=== PATIENT | female | born 1940 | race Caucasian/White ===

== ENCOUNTER 2016-08-27 12:37 | Emergency (ER) | payer MEDICARE, OTHER ==
[2016-08-27 12:48] VITALS: BP 160/77; O2SAT 99
--- NOTE | 2016-08-27 13:01 | ERPHSYRPT ---
- History of Present Illness Time Seen by Provider: 08/27/16 12:41 Source: patient, family Exam Limitations: no limitations Patient Subjective Stated Complaint: lt earache Triage Nursing Assessment: states has had a lt earache for 3 days. denies injury or drainage. pain radiates to lt post head. no new glasses Physician History: left ear pain for few days; recurrent; no fever; general aches; no exposures Timing/Duration: gradual onset, intermittent Severity: moderate ENT Location: ear (L) Prearrival Treatment: no prearrival treatment Modifying Factors: Improves With: nothing Associated Symptoms: ear pain (L), No cough, No fever, No chills, No change in hearing, No dizziness, No ear drainage, No facial pain/swelling, No headache, No hearing loss, No jaw pain Allergies/Adverse Reactions: cephalexin [From Keflex] Allergy (Verified 08/27/16 12:47) levofloxacin [From Levaquin] Allergy (Verified 08/27/16 12:47) morphine Allergy (Verified 08/27/16 12:47) nitrofurantoin [From Macrobid] Allergy (Verified 08/27/16 12:53) Penicillins Allergy (Verified 08/27/16 12:47) Home Medications: Lisinopril 10 mg [Zestril 10 MG] 10 mg PO DAILY 03/08/16 [History] Metoprolol Tartrate 25 mg [Lopressor 25MG Tab] 25 mg PO BID 03/08/16 [ History] Ranitidine HCl [Zantac] 300 mg PO HS 03/08/16 [History] Alprazolam 0.25 mg [xanAX 0.25 MG] 0.25 mg PO BID PRN 04/23/16 [History] Hx Tetanus, Diphtheria Vaccination/Date Given: Yes Hx Influenza Vaccination/Date Given: No Hx Pneumococcal Vaccination/Date Given: No Immunizations Up to Date: Yes - Review of Systems Constitutional: No Symptoms Eyes: No Symptoms Ears, Nose, & Throat: Ear Pain (left), No Ear Discharge, No Hearing Changes, No Tinnitus, No Nose Discharge, No Epistaxis, No Mouth Pain, No Throat Pain Respiratory: No Cough, No Cyanosis, No Dyspnea Cardiac: No Chest Pain, No Edema, No Syncope Abdominal/Gastrointestinal: Abdominal Pain (mild chronic intrermittant), No Nausea, No Vomiting, No Diarrhea Genitourinary Symptoms: No Symptoms Musculoskeletal: Arthralgias, Back Pain (chronic), No Injury Skin: No Symptoms Neurological: No Symptoms Psychological: No Symptoms Endocrine: No Symptoms Hematologic/Lymphatic: No Symptoms Immunological/Allergic: No Symptoms - Past Medical History Pertinent Past Medical History: Yes Neurological History: Migraines ENT History: Cataracts Cardiac History: Hypertension Respiratory History: No Pertinent History Endocrine Medical History: No Pertinent History Musculoskeletal History: No Pertinent History GI Medical History: GERD History: No Pertinent History Psycho-Social History: Anxiety Female Reproductive Disorders: No Pertinent History - Past Surgical History Past Surgical History: Yes Neuro Surgical History: No Pertinent History Cardiac: No Pertinent History Respiratory: No Pertinent History Gastrointestinal: Appendectomy, Bowel Surgery, Hernia Repair Genitourinary: No Pertinent History Musculoskeletal: No Pertinent History Female Surgical History: Hysterectomy - Social History Smoking Status: Never smoker Exposure to second hand smoke: No Alcohol Use: None Drug Use: none Patient Lives Alone: No Significant Family History: no pertinent family hx - Female History Hx Now: No - Nursing Vital Signs Nursing Vital Signs: Initial Vital Signs Temperature 97.7 F Temperature Source Oral Pulse Rate 61 Respiratory Rate 18 Blood Pressure [Right Arm] 160/77 Pain Intensity 5 - Physical Exam General Appearance: mild distress, alert, thin Eye Exam: bilateral eye: normal inspection, PERRL, EOMI Ear Exam: bilateral ear: auricle normal, canal normal, TM normal Nasal Exam: normal inspection, No dried blood, No sinus tenderness Throat Exam: normal, pharynx normal, moist mucus membranes, No dental tenderness , No excessive drooling, No mandibular swelling Neck Exam: normal inspection, non-tender, supple, full range of motion, trachea midline Cardiovascular/Respiratory Exam: chest non-tender, normal breath sounds, regular rate/rhythm, heart sounds normal, no JVD, no M/R/G, no respiratory distress Abdominal Exam: non-tender, soft, no organomegaly Neurologic Exam: alert, oriented x 3, cooperative, shelver II-XII nml as tested, normal mood/affect, nml cerebellar function, nml station & gait Skin Exam: normal color, warm, dry, No rash SpO2 Interpretation: normal SpO2: 99 Oxygen Delivery: Room Air - Course Nursing assessment & vital signs reviewed: Yes - Progress Progress Note: 08/27/16 13:00 discussed findings and treatment plan; instructions given Counseled pt/family regarding: diagnosis, need for follow-up - Departure Time of Disposition: 13:00 Departure Disposition: Home Clinical Impression: Left ear pain Condition: Stable Critical Care Time: No Additional Instructions: follow up DDS tylenol prn Follow-up with family doctor as directed. Call for appointment. Return if any problems. If you smoke please stop. Call or follow up with your family doctor for assistance if you need it to stop. Please wear your seatbelt when driving. Have a nice day. Thank you for allowing us to participate in your care today. :o) Dr Nick Frausto
[2016-08-27 13:05] VITALS: PULSE 60
== END 2016-08-27 13:05 | disposition home or self-care (01) ==
LOC: ED 12:37
DX: H92.02 Otalgia, left ear (principal); I10 Essential (primary) hypertension; Z79.899 Other long term (current) drug therapy
CPT/HCPCS: 99281; 99282

== ENCOUNTER 2016-10-24 21:53 | Emergency (ER) | payer MEDICARE, OTHER ==
[2016-10-24 22:08] VITALS: O2SAT 96
--- NOTE | 2016-10-24 22:23 | ERPHSYRPT ---
- History of Present Illness Time Seen by Provider: 10/24/16 22:11 Source: patient, family (DAUGHTER) Exam Limitations: no limitations Patient Subjective Stated Complaint: on antibiotics (nitrofurantoin) for a UTI but began to taste salt so stopped taking it - states that she has now RLQ pain and flank pain and frequency of urination now since today - states that when she began to have shoulder pain, also when she started the antibiotics Triage Nursing Assessment: ambulatory to treatment area - steady gait - moves all extremities with equal strength. alert/oriented - anxious affect. skin pwd - no rash/injury. resps easy - non-labored Physician History: TODAY PT HAS HAD INCREASED URINARY FREQUENCY, LOWER MID ABDOMINAL PAIN AND BILATERAL FLANK PAIN. PT ALSO C/O INTERMITTENT LEFT EARACHES FOR YEARS. PT DENIES FEVER, VOMITING, DIARRHEA, CHEST PAIN, SHORTNESS OF AIR. Allergies/Adverse Reactions: cephalexin [From Keflex] Allergy (Verified 10/24/16 22:02) levofloxacin [From Levaquin] Allergy (Verified 10/24/16 22:02) morphine Allergy (Verified 10/24/16 22:02) nitrofurantoin [From Macrobid] Allergy (Verified 10/24/16 22:02) Penicillins Allergy (Verified 10/24/16 22:02) Home Medications: Lisinopril 10 mg [Zestril 10 MG] 10 mg PO DAILY 03/08/16 [History] Metoprolol Tartrate 25 mg [Lopressor 25MG Tab] 25 mg PO BID 03/08/16 [ History] Ranitidine HCl [Zantac] 300 mg PO HS 03/08/16 [History] Alprazolam 0.25 mg [xanAX 0.25 MG] 0.25 mg PO BID PRN 04/23/16 [History] Hx Tetanus, Diphtheria Vaccination/Date Given: Yes Hx Influenza Vaccination/Date Given: No Hx Pneumococcal Vaccination/Date Given: No Immunizations Up to Date: Yes - Review of Systems Constitutional: No Fever Abdominal/Gastrointestinal: Abdominal Pain (LOWER MID ABDOMINAL PAIN AND BILATERAL FLANK PAIN TODAY.), No Vomiting Genitourinary Symptoms: Frequency Endocrine: No Excessive Sweating All Other Systems: Reviewed and Negative - Past Medical History Pertinent Past Medical History: Yes Neurological History: Migraines ENT History: Cataracts Cardiac History: Hypertension Respiratory History: No Pertinent History Endocrine Medical History: No Pertinent History Musculoskeletal History: No Pertinent History GI Medical History: GERD History: No Pertinent History Psycho-Social History: Anxiety Female Reproductive Disorders: No Pertinent History - Past Surgical History Past Surgical History: Yes Neuro Surgical History: No Pertinent History Cardiac: No Pertinent History Respiratory: No Pertinent History Gastrointestinal: Appendectomy, Bowel Surgery, Hernia Repair Genitourinary: No Pertinent History Musculoskeletal: No Pertinent History Female Surgical History: Hysterectomy - Social History Smoking Status: Never smoker Exposure to second hand smoke: No Alcohol Use: None Drug Use: none Patient Lives Alone: No Significant Family History: no pertinent family hx - Female History Hx Last Menstrual Period: n/a Hx Now: No - Nursing Vital Signs Nursing Vital Signs: Initial Vital Signs Temperature 98.1 F Temperature Source Oral Pulse Rate 62 Respiratory Rate 16 Blood Pressure [] 179/72 Pain Intensity 6 - Physical Exam General Appearance: alert Eye Exam: PERRL/EOMI Ears, Nose, Throat Exam: TMs normal, pharynx normal, moist mucous membranes Neck Exam: normal inspection Respiratory Exam: lungs clear Cardiovascular Exam: normal heart sounds Gastrointestinal/Abdomen Exam: soft, normal bowel sounds, No tenderness 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) Neurologic Exam: alert, cooperative Skin Exam: warm, dry SpO2 Interpretation: normal SpO2: 96 Oxygen Delivery: Room Air - Course Nursing assessment & vital signs reviewed: Yes - CT Exams Abdomen/Pelvis CT Interpretation: Tele-radiologist Report (NO ACUTE PROCESS) Ordered Tests: Active Orders 24 hr Category Date Time Status ABDOMEN AND PELVIS W/0 CONTRAS [CT] Stat Exams 10/24/16 22:39 Taken AMYLASE Stat Lab 10/24/16 22:55 Completed CBC W DIFF Stat Lab 10/24/16 22:55 Completed CMP Stat Lab 10/24/16 22:55 Completed LIPASE Stat Lab 10/24/16 22:55 Completed UA W/ MICROSCOPIC Stat Lab 10/24/16 22:25 Completed Lab/Rad Data: Laboratory Result Diagrams 10/24/16 22:55 10/24/16 22:55 Laboratory Results 10/24/16 10/24/16 10/24/16 Range/Units 22:55 22:55 22:25 WBC 6.7 (4.0-10.5) K/mm3 RBC 4.25 (4.1-5.4) M/mm3 Hgb 12.4 (12.0-16.0) gm/dl Hct 37.6 (35-47) % MCV 88.5 (78-100) fl MCH 29.2 (26-32) pg MCHC 33.0 (32-36) g/dl RDW 13.7 (11.5-14.0) % Plt Count 213 (150-450) K/mm3 MPV 11.2 H (6-9.5) fl Gran % 45.8 (36.0-66.0) % Lymphocytes % 38.1 (24.0-44.0) % Monocytes % 13.7 H (0.0-12.0) % Eosinophils % 2.1 (0.00-5.0) % Basophils % 0.3 (0.0-0.4) % Basophils # 0.02 (0-0.4) Sodium 131 L (136-145) mEq/L Potassium 4.5 (3.5-5.1) mEq/L Chloride 97 L (98-107) mEq/L Carbon Dioxide 28.8 (21-32) mEq/L Anion Gap 9.9 (5-15) MEQ/L BUN 13 (9-20) mg/dL Creatinine 0.92 (0.55-1.30) mg/dl Estimated GFR > 60 ML/MIN Glucose 109 (70-110) MG/DL Calcium 9.7 (8.5-10.1) mg/dL Total Bilirubin 0.5 (0.2-1.0) mg/dL AST 18 (15-37) U/L ALT 23 (12-78) U/L Alkaline Phosphatase 79 (46-116) U/L Serum Total Protein 6.6 (6.4-8.2) gm/dL Albumin 3.6 (3.4-5.0) g/dL Amylase 88 (25-115) U/L Lipase 242 (73-393) U/L Ur Collection Type CLEAN CATCH Urine Color LT.YELLOW (YELLOW) Urine Appearance CLEAR (CLEAR) Urine pH 6.5 (5-6) Ur Specific [place] <=1.005 (1.005-1.025) Urine Protein NEGATIVE (Negative) Urine Glucose (UA) NEGATIVE (NEGATIVE) mg/dL Urine Ketones NEGATIVE (NEGATIVE) Urine Nitrite NEGATIVE (NEGATIVE) Urine Bilirubin NEGATIVE (NEGATIVE) Urine Urobilinogen 0.2 (0-1) mg/dL Urine WBC (Auto) TRACE (NEGATIVE) Urine RBC (Auto) NEGATIVE (0-5) Jh/ul Urine Microscopic WBC 0-2 (0-5) /HPF Ur Epithelial Cells FEW (FEW) /HPF Urine Bacteria FEW (NEGATIVE) /HPF Specimen Received 10/24/16:2225 - Departure Time of Disposition: 23:47 Departure Disposition: Home Clinical Impression: ABDOMINAL PAIN Condition: Fair Critical Care Time: No Referrals: ELAINE NICOLE MD [Primary Care Provider] - Instructions: Abdominal Pain-Adult Additional Instructions: FOLLOW UP WITH PRIVATE DOCTOR TOMORROW.
[2016-10-24 22:31] LABS: COMPLETE URINE MICROSCOPIC? YES; Collection Type CLEAN CATCH; Ph 6.5 (5-6)
[2016-10-24 22:33] LABS: Bacteria FEW /HPF (NEGATIVE); Epithelial Cells FEW /HPF (FEW); WBC 0-2 /HPF (0-5)
[2016-10-24 23:15] VITALS: BP 179/72; PULSE 62
[2016-10-24 23:19] LABS: BASOPHIL % 0.3 % (0.0-0.4); Eosinophil % 2.1 % (0.00-5.0); Granulocytes % 45.8 % (36.0-66.0); Lymphocytes % 38.1 % (24.0-44.0); Mean Cell Volume 88.5 fl (78-100); Mean Corpuscular Hemoglobin 29.2 pg (26-32); Mean Platelet Volume 11.2 fl (6-9.5); Monocytes % 13.7 % (0.0-12.0); Platelet Count 213 K/mm3 (150-450); Red Blood Count 4.25 M/mm3 (4.1-5.4); Red Cell Distribution Width 13.7 % (11.5-14.0); White Blood Count 6.7 K/mm3 (4.0-10.5)
[2016-10-24 23:23] LABS: ALBUMIN 3.6 g/dL (3.4-5.0); ALKALINE PHOSPHATASE 79 U/L (46-116); ANION GAP 9.9 MEQ/L (5-15); BILIRUBIN,TOTAL 0.5 mg/dL (0.2-1.0); BLOOD UREA NITROGEN 13 mg/dL (9-20); CHLORIDE 97 mEq/L (98-107); Carbon Dioxide 28.8 mEq/L (21-32); Glucose 109 MG/DL (70-110); LIPASE 242 U/L (73-393); Potassium 4.5 mEq/L (3.5-5.1); SGOT/AST 18 U/L (15-37); SGPT/ALT 23 U/L (12-78); SODIUM 131 mEq/L (136-145); Total Protein 6.6 gm/dL (6.4-8.2)
--- NOTE | 2016-10-25 08:00 | XRAY ---
Indication: Bilateral flank pain. Urinary frequency and dysuria. UTI. Multiple contiguous axial images obtained through the abdomen and pelvis without contrast as ordered. Comparison: February 07, 2016. Lung bases remain hyperinflated with minimal fibrosis/scarring and right middle lobe noncalcified granuloma. Heart is not enlarged. Stable small hiatal hernia. Noncontrasted stomach and bowel loops appear nonobstructed. Again partial right colon resection with intact anastomosis and minimal sigmoid diverticulosis without diverticulitis. Previous reported hysterectomy and appendectomy. No free fluid/air. Stable scattered calcified splenic granulomas. Remaining liver, gallbladder, pancreas, spleen, adrenal glands, kidneys, ureters, and bladder appear unremarkable for noncontrast exam. There remains mild calcifications of the aortoiliac vessels without AAA. Osseous structures intact again with mild degenerative changes throughout the spine and both hips. Impression: 1. Stable small hiatal hernia and sigmoid diverticulosis. 2. Again intact colonic anastomosis without obstruction. 3. No new or acute intra-abdominal/pelvic abnormalities on this noncontrast exam. Comment: Preliminary interpretation was made by [facility]. No discrepancy. CTDI 11.72
== END 2016-10-25 00:19 | disposition home or self-care (01) ==
LOC: ED 21:53
DX: R10.30 Lower abdominal pain, unspecified (principal); R61 Generalized hyperhidrosis
CPT/HCPCS: 36415; 74176; 80053; 81000; 82150; 83690; 85025; 99283; 99284

== ENCOUNTER 2017-07-15 06:44 | Day surgery (SDC) | payer MEDICARE, OTHER ==
[2017-07-15] MEDS ORDERED: DEMEROL 50 MG IV ONE ×2 (06:45)
[2017-07-15] MEDS ORDERED: VERSED 5 MG/5 ML IV ONE (06:45)
[2017-07-15] MEDS ORDERED: Zofran 4 MG/2 ML VIAL IV ONE (06:45)
[2017-07-15] MEDS ORDERED: Sodium Chloride 0.9% 1000 ML 1,000 ML IV SCH (07:00)
--- NOTE | 2017-07-15 08:45 | HP ---
DATE OF SURGERY: 07/15/2017 ADMISSION DIAGNOSIS: Upper abdominal discomfort, gastroesophageal reflux disease. ANTICIPATED PROCEDURE: The patient requiring colonoscopy for follow up colon resection. HISTORY OF PRESENT ILLNESS: PAST MEDICAL HISTORY: ALLERGIES: NONE. MEDICATIONS: Lisinopril, metoprolol. PAST SURGICAL HISTORY: Previous colon resection. SOCIAL HISTORY: Negative. FAMILY HISTORY: Negative. PHYSICAL EXAMINATION: VITAL SIGNS: Normal. CHEST: Clear. COR: Regular. ABDOMEN: No palpable organomegaly or mass. IMPRESSION: Follow up of colon resection and evaluation of gastroesophageal reflux disease, abdominal pain. PLAN: EGD and colonoscopy.
[2017-07-15] MEDS ORDERED: Lactated Ringers 1,000 ML IV ONE (09:39)
[2017-07-15 11:07] VITALS: BP 106/60; PULSE 75; O2SAT 94
--- NOTE | 2017-07-15 12:19 | OP ---
SURGERY DATE/TIME: 07/15/201707 PREOPERATIVE DIAGNOSIS: The patient had abdominal pain right flank. She also had some symptoms of reflux, dysphagia, epigastric pain. She had a previous colon resection but no recent endoscopic examination. POSTOPERATIVE DIAGNOSIS: The patient had abdominal pain right flank. She also had some symptoms of reflux, dysphagia, epigastric pain. She had a previous colon resection but no recent endoscopic examination. PROCEDURES: 1) EGD with findings of II/III gastroesophageal reflux disease. 2) Colonoscopic examination complete with findings of a sessile broad based anterior wall mucosal lesion at the previous anastomosis near the mid transverse colon. Colonoscopy with cold biopsy x3. SURGEON: Marquise Guerra M.D. ANESTHESIA: 20 minutes monitored IV sedation. COMPLICATIONS: None. CONDITION: Stable. INDICATION: The patient with the above symptoms. DESCRIPTION OF PROCEDURE: Taken to surgery. IV sedation was titrated. Oximetry kept over 90%. Comfort level was satisfactory. The upper scope was introduced. The esophagus normal down to gastroesophageal junction. There was a 1 cm rim of esophagitis grade II/III. Fundus, body and antrum satisfactory. Pylorus satisfactory. Duodenal bulb satisfactory. Second portion satisfactory. Ampullary area satisfactory. Scope withdrawn and looped upon itself. No hiatal hernia. The scope was withdrawn. There was II/III gastroesophageal reflux disease at the distal esophagus. The patient tolerated the procedure satisfactory. Anal digital examination satisfactory. Scope introduced. There was some tortuosity of the sigmoid. The rectum was normal. The scope was then advanced up the upper abdomen. The anastomosis was encountered probably mid transverse. It looked like a right hemicolectomy. The blind end was satisfactory but on the anterior wall across from the anastomosis there was a sessile mucosal lesion about a dollar size, totally flat, totally sessile. The area looked polypoid but it had a little bit of firmness intermittently. Three merchandiser retail representative biopsies obtained. I think this area needs to be surgically removed. Circumferential withdrawal. No additional lesion. Discussion with the family. This may be contributing to her right sided pain. It is certainly a lesion that is going to require removal. We will check the biopsy results.
== END 2017-07-15 11:21 | disposition home or self-care (01) ==
LOC: SDC 06:44
PROVIDERS: ATTEND Surgery
PROC: 0DJ08ZZ Inspection of Upper Intestinal Tract, Via Natural or Artificial Opening Endoscopic (ICD-10-PCS; principal; 2017-07-15)
PROC: 0DBL8ZX Excision of Transverse Colon, Via Natural or Artificial Opening Endoscopic, Diagnostic (ICD-10-PCS; 2017-07-15)
DX: K21.9 Gastro-esophageal reflux disease without esophagitis (principal); R10.9 Unspecified abdominal pain; R13.19 Other dysphagia; R10.13 Epigastric pain; Z90.49 Acquired absence of other specified parts of digestive tract
CPT/HCPCS: 88305; J2175; J2250; J2405

== ENCOUNTER 2018-05-02 16:54 | Inpatient (IN) | payer MEDICARE, OTHER ==
[2018-05-02] MEDS ORDERED: FEVERALL 650 MG PR PRN (18:54)
[2018-05-02] MEDS ORDERED: DEXTROSE 5% -NACL 0.9% 1000 ML + KCl 20 MEQ 1,000 ML IV SCH (19:00)
[2018-05-02] MEDS: PROTONIX 40 MG IV IV SCH (20:13)
[2018-05-02] MEDS: TRANDATE 20 MG/5 ML SYRINGE IV SCH (20:36)
[2018-05-02] MEDS: D5W/0.45NS W/ 20mEq KCl 1000 ML 1,000 ML IV SCH ×2 (20:41→22:43)
[2018-05-02] MEDS: DEXTROSE IV PRN (21:22)
[2018-05-02] MEDS: [UNRECOGNIZED DRUG - OTHER] IV PRN (21:22)
[2018-05-02] MEDS: WATER IV PRN (21:22)
[2018-05-02] MEDS: Zofran 4 MG/2 ML VIAL IV PRN (23:27)
[2018-05-03] MEDS: TRANDATE 20 MG/5 ML SYRINGE IV SCH ×5 (01:34→23:54)
[2018-05-03 06:16] LABS: Hematocrit 28.7 % (35-47); Hemoglobin 9.8 gm/dl (12.0-16.0); Mean Cell Volume 89.1 fl (78-100); Mean Corpuscular Hemoglobin 30.4 pg (26-32); Mean Corpuscular Hgb Concent. 34.1 g/dl (32-36); Mean Platelet Volume 11.3 fl (6-9.5); Platelet Count 214 K/mm3 (150-450); Red Blood Count 3.22 M/mm3 (4.1-5.4); Red Cell Distribution Width 13.7 % (11.5-14.0); White Blood Count 10.7 K/mm3 (4.0-10.5)
[2018-05-03] MEDS: D5W/0.45NS W/ 20mEq KCl 1000 ML 1,000 ML IV SCH (07:29)
[2018-05-03] MEDS: [UNRECOGNIZED DRUG - OTHER] IV PRN (07:29)
[2018-05-03] MEDS: WATER IV PRN (07:29)
[2018-05-03] MEDS: DEXTROSE IV PRN (07:29)
[2018-05-03 07:54] LABS: ANION GAP 10.8 MEQ/L (5-15); BLOOD UREA NITROGEN 9 mg/dL (7-17); CHLORIDE 100 mmol/L (98-107); Calcium 9.2 mg/dL (8.4-10.2); Carbon Dioxide 22 mmol/L (22-30); Creatinine 1 0.76 mg/dL (0.52-1.04); Glucose 138 mg/dL (74-106); PREALBUMIN 13.97 mg/dL (17.6-36.0); Potassium 4.4 mmol/L (3.5-5.1); SODIUM 129 mmol/L (137-145)
[2018-05-03] MEDS ORDERED: Zestril 10 MG PO SCH (10:00)
[2018-05-03] MEDS ORDERED: xanAX 0.25 MG PO SCH (10:15)
[2018-05-03] MEDS: Zofran 4 MG/2 ML VIAL IV PRN ×3 (10:25→21:57)
[2018-05-03] MEDS: Lopressor 25MG Tab PO SCH ×2 (10:25→21:56)
[2018-05-03] MEDS ORDERED: xanAX 0.25 MG PO PRN (10:30)
[2018-05-03] MEDS: MORPHINE SULFATE 2 MG INJ IV PRN ×3 (10:54→22:25)
--- NOTE | 2018-05-03 11:56 | PCM.HP ---
History of Present Illness - Chief Complaint Chief Complaint: very high blood pressure History of Present Illness: is a 78 year old female.was admitted with high blood pressure recently underwent colectomy - Review of Systems Constitutional: No Fever, No Chills Eyes: No Symptoms Ears, Nose, & Throat: No Symptoms Respiratory: No Cough, No Short Of Breath Cardiac: Chest Pain, Palpitations, Orthopnea, No Edema, No Syncope Abdominal/Gastrointestinal: Abdominal Pain, No Nausea, No Vomiting, No Diarrhea Genitourinary Symptoms: No Dysuria Musculoskeletal: No Back Pain, No Neck Pain Skin: No Rash Neurological: No Dizziness, No Focal Weakness, No Sensory Changes Psychological: No Symptoms Endocrine: No Symptoms Hematologic/Lymphatic: No Symptoms Immunological/Allergic: No Symptoms Medications & Allergies Home Medications: Home Medication List Lisinopril 10 mg [Zestril 10 MG] 10 mg PO DAILY 03/08/16 [History Confirmed 05/04/18] Metoprolol Tartrate 25 mg [Lopressor 25MG Tab] 25 mg PO BID 03/08/16 [ History Confirmed 05/04/18] Ranitidine HCl [Zantac] 300 mg PO HS 03/08/16 [History Confirmed 05/04/18] Alprazolam 0.25 mg [xanAX 0.25 MG] 0.25 mg PO BID PRN 04/23/16 [History Confirmed 05/04/18] Allergies/Adverse Reactions: Allergies Allergy/AdvReac Type Severity Reaction Status Date / Time iodine Allergy Unknown Verified 07/15/17 07:16 Penicillins Allergy Unknown Nausea Verified 07/15/17 07:19 cephalexin [From Keflex] Allergy Nausea Verified 07/15/17 07:19 latex Allergy Verified 05/02/18 21:55 levofloxacin [From Levaquin] Allergy Stomach Verified 07/15/17 07:19 Cramps sulfamethoxazole Allergy Verified 07/15/17 07:17 [From Bactrim] trimethoprim [From Bactrim] Allergy Stomach Verified 07/15/17 07:19 Pain - Past Medical History Past Medical History: Yes Neurological History: No Pertinent History ENT History: Cataracts Cardiac History: Hypertension Respiratory History: COPD Endocrine Medical History: No Pertinent History Musculoskelatal History: No Pertinent History GI Medical History: GERD, Hernia History: Other Pyscho-Social History: Anxiety Reproductive Disorders: No Pertinent History Comment: frequent UTI's - Female History Are you now?: No - Past Surgical History Past Surgical History: Yes Neuro Surgical History: No Pertinent History Cardiac History: No Pertinent History Respiratory Surgery: No Pertinent History GI Surgical History: Appendectomy, Bowel Surgery, Hernia Repair Genitourinary Surgical Hx: No Pertinent History Musculskeletal Surgical Hx: No Pertinent History Female Surgical History: Hysterectomy Other Surgical History: september colon resection , "we were never told if it was cancer or not" "Dr Pelayo", Have had polypectomy since", states "throat stretched twice" - Social History Smoking Status: Never smoker Exposure to second hand smoke: No Alcohol: None Drug Use: none Significant Family History: no pertinent family hx - Physical Exam Vital Signs: Vital Signs - 24 hr Temp Pulse Resp BP Pulse Ox 05/03/18 11:21 73 19 139/72 95 05/03/18 11:00 74 19 190/89 95 05/03/18 10:30 85 25 H 182/91 97 05/03/18 10:00 76 27 H 146/74 96 05/03/18 09:22 78 19 126/65 95 05/03/18 09:00 75 22 157/71 91 L 05/03/18 08:06 72 20 132/68 93 L 05/03/18 08:00 72 05/03/18 07:56 98.5 F 83 23 146/67 96 05/03/18 06:58 77 19 135/65 95 05/03/18 06:00 81 20 133/66 95 05/03/18 05:00 79 21 147/66 95 05/03/18 04:00 98.8 F 82 20 126/61 94 L 05/03/18 03:15 74 20 128/62 93 L 05/03/18 03:00 74 19 102/49 93 L 05/03/18 01:53 78 21 133/78 94 L 05/03/18 01:00 85 19 154/73 95 05/03/18 00:00 98.8 F 88 18 131/61 97 05/02/18 23:00 88 18 141/71 94 L 05/02/18 22:00 78 18 125/58 93 L 05/02/18 21:00 84 18 129/59 91 L 05/02/18 20:00 98.3 F 97 H 23 155/78 94 L 05/02/18 19:27 98.3 F 97 H 19 151/74 94 L 05/02/18 18:30 107 H 20 134/78 93 L 05/02/18 18:15 103 H 19 145/80 93 L 05/02/18 18:05 98.3 F 86 20 201/86 General Appearance: no apparent distress, alert Neurologic Exam: alert, oriented x 3, cooperative, normal mood/affect, nml cerebellar function, nml station & gait, sensation nml, No motor deficits Eye Exam: PERRL/EOMI, eyes nml inspection Ears, Nose, Throat Exam: normal ENT inspection, TMs normal, pharynx normal, moist mucous membranes Neck Exam: normal inspection, non-tender, supple, full range of motion Respiratory Exam: normal breath sounds, lungs clear, No respiratory distress Cardiovascular Exam: regular rate/rhythm, normal heart sounds, normal peripheral pulses Gastrointestinal/Abdomen Exam: soft, normal bowel sounds, No tenderness, No mass Back Exam: normal inspection, normal range of motion, No CVA tenderness, No vertebral tenderness Extremity Exam: normal inspection, normal range of motion, pelvis stable Skin Exam: normal color, warm, dry, No rash Lymphatic Exam: No adenopathy Results - Labs Lab/Micro Results: Lab Results-Last 24 Hours 05/03/18 05/03/18 05/03/18 Range/Units 06:07 06:07 11:02 WBC 10.7 H (4.0-10.5) K/mm3 RBC 3.22 L (4.1-5.4) M/mm3 Hgb 9.8 L (12.0-16.0) gm/dl Hct 28.7 L (35-47) % MCV 89.1 (78-100) fl MCH 30.4 (26-32) pg MCHC 34.1 (32-36) g/dl RDW 13.7 (11.5-14.0) % Plt Count 214 (150-450) K/mm3 MPV 11.3 H (6-9.5) fl Sodium 129 L* (137-145) mmol/L Potassium 4.4 (3.5-5.1) mmol/L Chloride 100 (98-107) mmol/L Carbon Dioxide 22 (22-30) mmol/L Anion Gap 10.8 (5-15) MEQ/L BUN 9 (7-17) mg/dL Creatinine 0.76 (0.52-1.04) mg/dL Estimated GFR > 60.0 ML/MIN Glucose 138 H (74-106) mg/dL Calcium 9.2 (8.4-10.2) mg/dL Troponin I < 0.012 (0.000-0.034) ng/mL Prealbumin 13.97 L (17.6-36.0) mg/dL Assessment/Plan (1) Status post colectomy Status: Acute Assessment & Plan: Last Vital Signs Temp 98.6 F 05/04/18 11:04 Pulse 69 05/04/18 11:04 Resp 18 05/04/18 11:04 BP 139/63 05/04/18 11:04 Pulse Ox 96 05/04/18 11:04 Allergies iodine Allergy (Unknown, Verified 07/15/17 07:16) Penicillins Allergy (Unknown, Verified 07/15/17 07:19) Nausea cephalexin [From Keflex] Allergy (Verified 07/15/17 07:19) Nausea latex Allergy (Verified 05/02/18 21:55) levofloxacin [From Levaquin] Allergy (Verified 07/15/17 07:19) Stomach Cramps sulfamethoxazole [From Bactrim] Allergy (Verified 07/15/17 07:17) trimethoprim [From Bactrim] Allergy (Verified 07/15/17 07:19) Stomach Pain Code(s): Z90.49 - ACQUIRED ABSENCE OF OTHER SPECIFIED PARTS OF DIGESTIVE TRACT (2) Malignant hypertension Status: Chronic Assessment & Plan: Last Vital Signs Temp 98.5 F 05/03/18 07:56 Pulse 73 05/03/18 11:21 Resp 19 05/03/18 11:21 BP 139/72 05/03/18 11:21 Pulse Ox 95 05/03/18 11:21 Allergies iodine Allergy (Unknown, Verified 07/15/17 07:16) Penicillins Allergy (Unknown, Verified 07/15/17 07:19) Nausea cephalexin [From Keflex] Allergy (Verified 07/15/17 07:19) Nausea latex Allergy (Verified 05/02/18 21:55) levofloxacin [From Levaquin] Allergy (Verified 07/15/17 07:19) Stomach Cramps sulfamethoxazole [From Bactrim] Allergy (Verified 07/15/17 07:17) trimethoprim [From Bactrim] Allergy (Verified 07/15/17 07:19) Stomach Pain Active Medications Acetaminophen (Feverall 650 Mg) 650 mg [place] Q4H PRN PRN PRN Reason: PAIN AND/OR FEVER Stop: 06/01/18 18:53 Last Admin: 05/03/18 01:50 Dose: 650 mg Alprazolam (Xanax 0.25 Mg) 0.25 mg PO BID PRN PRN Stop: 06/02/18 10:14 Last Admin: 05/03/18 10:25 Dose: 0.25 mg Sodium Nitroprusside 50 mg/ (Dextrose) 252 mls @ 0 mls/hr IV .Q0M PRN; Protocol PRN Reason: HYPERTENSION Stop: 06/01/18 18:53 Last Admin: 05/03/18 07:29 Dose: 0.62 mcg/kg/min, 12.1 mls/hr Potassium Chloride/Dextrose/Sod Cl (D5w/0.45ns W/ 20meq Kcl 1000 Ml) 1,000 mls @ 125 mls/hr IV .Q8H [facility] Stop: 06/01/18 19:29 Last Admin: 05/03/18 07:29 Dose: 125 mls/hr Labetalol HCl (Trandate 20 Mg/5 Ml Syringe) 10 mg IV Q6H [facility] Stop: 06/01/18 19:59 Last Admin: 05/03/18 07:59 Dose: 10 mg Lisinopril (Zestril 10 Mg) 10 mg PO DAILY [facility] Stop: 06/02/18 09:59 Last Admin: 05/03/18 10:25 Dose: 10 mg Metoprolol Tartrate (Lopressor 25mg Tab) 25 mg PO BID [facility] Stop: 06/02/18 10:14 Last Admin: 05/03/18 10:25 Dose: 25 mg Morphine Sulfate (Morphine Sulfate 2 Mg Inj) 2 mg IV Q4H PRN PRN PRN Reason: PAIN Stop: 05/07/18 18:53 Last Admin: 05/03/18 10:54 Dose: 2 mg Ondansetron HCl (Zofran 4 Mg/2 Ml Vial) 4 mg IV Q4H PRN PRN PRN Reason: NAUSEA/VOMITING Stop: 06/01/18 19:15 Last Admin: 05/03/18 10:25 Dose: 4 mg Pantoprazole Sodium (Protonix 40 Mg Iv) 40 mg IV Q24H [facility] Stop: 06/01/18 19:59 Last Admin: 05/02/18 20:13 Dose: 40 mg Intake & Output 05/02/18 05/03/18 11:59 11:59 Intake Total 1598 Output Total 1 Balance 1597 Weight 63.8 kg Orders 05/02/18 18:54 Acetaminophen 650 mg [Feverall 650 mg] 650 mg [place] Q4H PRN PRN D5w 250 ml [Dextrose 5%/Water IV Soln. 250 ML] 250 ml Nitroprusside Sod 50 mg/ 2Ml [Nipride 50 mg/2 ml] 50 mg IV Titrate Morphine Sulfate 2 mg Inj 2 mg IV Q4H PRN PRN 05/02/18 19:01 Admit as Inpatient 05/02/18 19:03 [employer]ips Only Consult Surgery ROUTINE 05/02/18 19:16 Ondansetron HCl 4 mg/2 ml [Zofran 4 MG/2 ML VIAL] 4 mg IV Q4H PRN PRN 05/02/18 19:30 D5w-0.45NACL W/ 20Meq KCl [D5W/0.45NS W/ 20mEq KCl 1000 ML] 1,000 ml IV 125 mls/ hr 05/02/18 19:55 [employer]/Discharge Plan 05/02/18 20:00 Labetalol HCl 20 mg/4 ml [Trandate 20 mg/5 ml Syringe] 10 mg IV Q6H Pantoprazole 40 mg [Protonix 40 mg IV] 40 mg IV Q24H 05/03/18 09:41 NPO except Meds 05/03/18 10:00 Lisinopril 10 mg [Zestril 10 MG] 10 mg PO DAILY 05/03/18 10:12 Recertification ROUTINE 05/03/18 10:15 Metoprolol Tartrate 25 mg [Lopressor 25MG Tab] 25 mg PO BID 05/03/18 10:30 Alprazolam 0.25 mg [xanAX 0.25 MG] 0.25 mg PO BID PRN PRN Lab Tests 05/03/18 05/03/18 05/03/18 06:07 06:07 11:02 WBC 10.7 H RBC 3.22 L Hgb 9.8 L Hct 28.7 L MCV 89.1 MCH 30.4 MCHC 34.1 RDW 13.7 Plt Count 214 MPV 11.3 H Sodium 129 L* Potassium 4.4 Chloride 100 Carbon Dioxide 22 Anion Gap 10.8 BUN 9 Creatinine 0.76 Estimated GFR > 60.0 Glucose 138 H Calcium 9.2 Troponin I < 0.012 Prealbumin 13.97 L Code(s): I10 - ESSENTIAL (PRIMARY) HYPERTENSION
--- NOTE | 2018-05-03 11:56 | PCM.NOTE ---
Date and Time: 05/03/18 1155 Subjective Assessment: doing better - Review of Systems Constitutional: No Fever, No Chills Eyes: No Symptoms Ears, Nose, & Throat: No Symptoms Respiratory: No Cough, No Short Of Breath Cardiac: No Chest Pain, No Edema, No Syncope Abdominal/Gastrointestinal: No Abdominal Pain, No Nausea, No Vomiting, No Diarrhea Genitourinary Symptoms: No Dysuria Musculoskeletal: No Back Pain, No Neck Pain Skin: No Rash Neurological: No Dizziness, No Focal Weakness, No Sensory Changes Psychological: No Symptoms Endocrine: No Symptoms Hematologic/Lymphatic: No Symptoms Immunological/Allergic: No Symptoms Objective Exam General Appearance: no apparent distress, alert Neurologic Exam: alert, oriented x 3, cooperative, normal mood/affect, nml cerebellar function, sensation nml, No motor deficits Skin Exam: normal color, warm, dry Eye Exam: PERRL, EOMI, eyes nml inspection Ears, Nose, Throat Exam: normal ENT inspection, pharynx normal, moist mucous membranes Neck Exam: normal inspection, non-tender, supple, full range of motion Respiratory Exam: normal breath sounds, lungs clear, No respiratory distress Cardiovascular Exam: regular rate/rhythm, normal heart sounds Gastrointestinal/Abdomen Exam: soft, No tenderness, No mass Extremity Exam: normal inspection, normal range of motion Back Exam: normal inspection, normal range of motion, No CVA tenderness, No vertebral tenderness Pelvic Exam: deferred Rectal Exam: deferred OBJECTIVE DATA Vital Signs: Vital Signs - 24 hr Temp Pulse Resp BP Pulse Ox 05/03/18 11:21 73 19 139/72 95 05/03/18 11:00 74 19 190/89 95 05/03/18 10:30 85 25 H 182/91 97 05/03/18 10:00 76 27 H 146/74 96 05/03/18 09:22 78 19 126/65 95 05/03/18 09:00 75 22 157/71 91 L 05/03/18 08:06 72 20 132/68 93 L 05/03/18 08:00 72 05/03/18 07:56 98.5 F 83 23 146/67 96 05/03/18 06:58 77 19 135/65 95 05/03/18 06:00 81 20 133/66 95 05/03/18 05:00 79 21 147/66 95 05/03/18 04:00 98.8 F 82 20 126/61 94 L 05/03/18 03:15 74 20 128/62 93 L 05/03/18 03:00 74 19 102/49 93 L 05/03/18 01:53 78 21 133/78 94 L 05/03/18 01:00 85 19 154/73 95 05/03/18 00:00 98.8 F 88 18 131/61 97 05/02/18 23:00 88 18 141/71 94 L 05/02/18 22:00 78 18 125/58 93 L 05/02/18 21:00 84 18 129/59 91 L 05/02/18 20:00 98.3 F 97 H 23 155/78 94 L 05/02/18 19:27 98.3 F 97 H 19 151/74 94 L 05/02/18 18:30 107 H 20 134/78 93 L 05/02/18 18:15 103 H 19 145/80 93 L 05/02/18 18:05 98.3 F 86 20 201/86 Pain Assessment - Last Documented Pain Intensity 3 Pain Scale Used 0-10 Pain Scale Intake and Output: Intake & Output 04/30/18 05/01/18 05/02/18 05/03/18 11:59 11:59 11:59 11:59 Intake Total 1598 Output Total 1 Balance 1597 Weight 63.8 kg Lab Results: Lab Results-Last 24 Hours 05/03/18 05/03/18 05/03/18 Range/Units 06:07 06:07 11:02 WBC 10.7 H (4.0-10.5) K/mm3 RBC 3.22 L (4.1-5.4) M/mm3 Hgb 9.8 L (12.0-16.0) gm/dl Hct 28.7 L (35-47) % MCV 89.1 (78-100) fl MCH 30.4 (26-32) pg MCHC 34.1 (32-36) g/dl RDW 13.7 (11.5-14.0) % Plt Count 214 (150-450) K/mm3 MPV 11.3 H (6-9.5) fl Sodium 129 L* (137-145) mmol/L Potassium 4.4 (3.5-5.1) mmol/L Chloride 100 (98-107) mmol/L Carbon Dioxide 22 (22-30) mmol/L Anion Gap 10.8 (5-15) MEQ/L BUN 9 (7-17) mg/dL Creatinine 0.76 (0.52-1.04) mg/dL Estimated GFR > 60.0 ML/MIN Glucose 138 H (74-106) mg/dL Calcium 9.2 (8.4-10.2) mg/dL Troponin I < 0.012 (0.000-0.034) ng/mL Prealbumin 13.97 L (17.6-36.0) mg/dL Assessment/Plan (1) Malignant hypertension Current Visit: Yes Status: Acute Code(s): I10 - ESSENTIAL (PRIMARY) HYPERTENSION (2) Status post colectomy Current Visit: Yes Status: Acute Code(s): Z90.49 - ACQUIRED ABSENCE OF OTHER SPECIFIED PARTS OF DIGESTIVE TRACT
[2018-05-03] MEDS: Sodium Chloride 0.9% 1000 ML 1,000 ML IV SCH ×2 (12:34→23:53)
[2018-05-03] MEDS ORDERED: VASOTEC I.V. 2.5 MG IV ONE (13:00)
[2018-05-03] MEDS ORDERED: ENOXAPARIN SODIUM SQ ONE (18:22)
[2018-05-03] MEDS: PROTONIX 40 MG IV IV SCH (21:56)
[2018-05-04] MEDS: TRANDATE 20 MG/5 ML SYRINGE IV SCH ×2 (05:27→11:21)
[2018-05-04 05:53] LABS: Hematocrit 29.9 % (35-47); Mean Cell Volume 90.3 fl (78-100); Mean Corpuscular Hemoglobin 30.2 pg (26-32); Mean Corpuscular Hgb Concent. 33.4 g/dl (32-36); Mean Platelet Volume 11.4 fl (6-9.5); Platelet Count 209 K/mm3 (150-450); Red Blood Count 3.31 M/mm3 (4.1-5.4); White Blood Count 8.5 K/mm3 (4.0-10.5)
[2018-05-04 06:03] LABS: ALBUMIN 2.7 g/dL (3.5-5.0); ALKALINE PHOSPHATASE 59 U/L (38-126); ANION GAP 12.5 MEQ/L (5-15); BLOOD UREA NITROGEN 8 mg/dL (7-17); CHLORIDE 101 mmol/L (98-107); Calcium 9.4 mg/dL (8.4-10.2); Carbon Dioxide 25 mmol/L (22-30); Creatinine 1 0.84 mg/dL (0.52-1.04); Glucose 89 mg/dL (74-106); Potassium 4.1 mmol/L (3.5-5.1); SGOT/AST 17 U/L (14-36); SGPT/ALT 18 U/L (0-35); SODIUM 135 mmol/L (137-145); Total Protein 4.9 g/dL (6.3-8.2)
[2018-05-04] MEDS: Lopressor 25MG Tab PO SCH (09:30)
[2018-05-04] MEDS: Sodium Chloride 0.9% 1000 ML 1,000 ML IV SCH (09:54)
[2018-05-04] MEDS ORDERED: ENOXAPARIN SODIUM SQ SCH (10:00)
[2018-05-04] MEDS ORDERED: VASOTEC I.V. 2.5 MG IV SCH (10:00)
--- NOTE | 2018-05-04 10:47 | PCM.DS ---
Discharge Summary Date of Admission: 05/02/18 18:05 Admitting Physician: ELAINE NICOLE Consults: Consults on Case 05/02/18 19:03 Consult Surgery ROUTINE Primary Care Provider: ELAINE NICOLE Allergies Allergies iodine Allergy (Unknown, Verified 07/15/17 07:16) Penicillins Allergy (Unknown, Verified 07/15/17 07:19) Nausea cephalexin [From Keflex] Allergy (Verified 07/15/17 07:19) Nausea latex Allergy (Verified 05/02/18 21:55) levofloxacin [From Levaquin] Allergy (Verified 07/15/17 07:19) Stomach Cramps sulfamethoxazole [From Bactrim] Allergy (Verified 07/15/17 07:17) trimethoprim [From Bactrim] Allergy (Verified 07/15/17 07:19) Stomach Pain Hospital Summary - Hospital Course Hospital Course: Last Vital Signs Temp 98.8 F 05/04/18 03:48 Pulse 71 05/04/18 05:00 Resp 18 05/04/18 03:48 BP 150/65 05/04/18 05:00 Pulse Ox 93 L 05/04/18 03:48 Allergies iodine Allergy (Unknown, Verified 07/15/17 07:16) Penicillins Allergy (Unknown, Verified 07/15/17 07:19) Nausea cephalexin [From Keflex] Allergy (Verified 07/15/17 07:19) Nausea latex Allergy (Verified 05/02/18 21:55) levofloxacin [From Levaquin] Allergy (Verified 07/15/17 07:19) Stomach Cramps sulfamethoxazole [From Bactrim] Allergy (Verified 07/15/17 07:17) trimethoprim [From Bactrim] Allergy (Verified 07/15/17 07:19) Stomach Pain Active Medications Acetaminophen (Feverall 650 Mg) 650 mg [place] Q4H PRN PRN PRN Reason: PAIN AND/OR FEVER Stop: 06/01/18 18:53 Last Admin: 05/03/18 01:50 Dose: 650 mg Alprazolam (Xanax 0.25 Mg) 0.25 mg PO BID PRN PRN Stop: 06/02/18 10:14 Last Admin: 05/03/18 10:25 Dose: 0.25 mg Enalaprilat (Vasotec I.V. 2.5 Mg) 1.25 mg IV DAILY [facility] Stop: 06/03/18 09:59 Last Admin: 05/04/18 09:30 Dose: 1.25 mg Enoxaparin Sodium (Enoxaparin Sodium) 40 mg SQ DAILY [facility] Stop: 06/03/18 09:59 Last Admin: 05/04/18 09:31 Dose: 40 mg Sodium Chloride (Sodium Chloride 0.9% 1000 Ml) 1,000 mls @ 100 mls/hr IV .Q10H [facility] Stop: 06/02/18 11:59 Last Admin: 05/04/18 09:54 Dose: 100 mls/hr Labetalol HCl (Trandate 20 Mg/5 Ml Syringe) 20 mg IV Q6HT [facility] Stop: 06/02/18 17:59 Last Admin: 05/04/18 05:27 Dose: 20 mg Metoprolol Tartrate (Lopressor 25mg Tab) 25 mg PO BID [facility] Stop: 06/02/18 10:14 Last Admin: 05/04/18 09:30 Dose: 25 mg Morphine Sulfate (Morphine Sulfate 2 Mg Inj) 2 mg IV Q4H PRN PRN PRN Reason: PAIN Stop: 05/07/18 18:53 Last Admin: 05/03/18 22:25 Dose: 2 mg Ondansetron HCl (Zofran 4 Mg/2 Ml Vial) 4 mg IV Q4H PRN PRN PRN Reason: NAUSEA/VOMITING Stop: 06/01/18 19:15 Last Admin: 05/03/18 21:57 Dose: 4 mg Pantoprazole Sodium (Protonix 40 Mg Iv) 40 mg IV Q24H [facility] Stop: 06/01/18 19:59 Last Admin: 05/03/18 21:56 Dose: 40 mg Intake & Output 05/03/18 05/04/18 11:59 11:59 Intake Total 1598 2946 Output Total 1 2400 Balance 1597 546 Weight 63.8 kg Orders 05/03/18 10:12 Recertification 05/03/18 10:15 Metoprolol Tartrate 25 mg [Lopressor 25MG Tab] 25 mg PO BID 05/03/18 10:30 Alprazolam 0.25 mg [xanAX 0.25 MG] 0.25 mg PO BID PRN PRN 05/03/18 12:00 NaCl 0.9% 1000 ml [Sodium Chloride 0.9% 1000 ML] 1,000 ml IV 100 mls/hr 05/03/18 18:00 Labetalol HCl 20 mg/4 ml [Trandate 20 mg/5 ml Syringe] 20 mg IV Q6HT 05/03/18 20:00 Telemetry ROUTINE 05/04/18 10:00 Enalaprilat 2.5 mg Inj [Vasotec I.v. 2.5 mg] 1.25 mg IV DAILY Lab Tests 05/03/18 05/04/18 05/04/18 11:02 05:22 05:22 WBC 8.5 RBC 3.31 L Hgb 10.0 L Hct 29.9 L MCV 90.3 MCH 30.2 MCHC 33.4 RDW 14.0 Plt Count 209 MPV 11.4 H Sodium 135 L Potassium 4.1 Chloride 101 Carbon Dioxide 25 Anion Gap 12.5 BUN 8 Creatinine 0.84 Estimated GFR > 60.0 Glucose 89 Calcium 9.4 Magnesium 1.8 Total Bilirubin 0.50 AST 17 ALT 18 Alkaline Phosphatase 59 Troponin I < 0.012 Serum Total Protein 4.9 L Albumin 2.7 L - Vitals & Intake/Output Vital Signs: Vital Signs Temperature 98.8 F 05/04/18 03:48 Pulse Rate 71 05/04/18 05:00 Respiratory Rate 18 05/04/18 03:48 Blood Pressure 150/65 05/04/18 05:00 O2 Sat by Pulse Oximetry 93 L 05/04/18 03:48 Intake & Output: Intake & Output 05/01/18 05/02/18 05/03/18 05/04/18 11:59 11:59 11:59 11:59 Intake Total 1598 2946 Output Total 1 2400 Balance 1597 546 Weight 63.8 kg - Lab Result Diagrams: 05/04/18 05:22 05/04/18 05:22 Lab Results-Last 24 Hrs: Lab Results-Last 24 Hours 05/03/18 05/04/18 05/04/18 Range/Units 11:02 05:22 05:22 WBC 8.5 (4.0-10.5) K/mm3 RBC 3.31 L (4.1-5.4) M/mm3 Hgb 10.0 L (12.0-16.0) gm/dl Hct 29.9 L (35-47) % MCV 90.3 (78-100) fl MCH 30.2 (26-32) pg MCHC 33.4 (32-36) g/dl RDW 14.0 (11.5-14.0) % Plt Count 209 (150-450) K/mm3 MPV 11.4 H (6-9.5) fl Sodium 135 L (137-145) mmol/L Potassium 4.1 (3.5-5.1) mmol/L Chloride 101 (98-107) mmol/L Carbon Dioxide 25 (22-30) mmol/L Anion Gap 12.5 (5-15) MEQ/L BUN 8 (7-17) mg/dL Creatinine 0.84 (0.52-1.04) mg/dL Estimated GFR > 60.0 ML/MIN Glucose 89 (74-106) mg/dL Calcium 9.4 (8.4-10.2) mg/dL Magnesium 1.8 (1.6-2.3) mg/dL Total Bilirubin 0.50 (0.2-1.3) mg/dL AST 17 (14-36) U/L ALT 18 (0-35) U/L Alkaline Phosphatase 59 (38-126) U/L Troponin I < 0.012 (0.000-0.034) ng/mL Serum Total Protein 4.9 L (6.3-8.2) g/dL Albumin 2.7 L (3.5-5.0) g/dL - Procedures and Test Procedures and Tests throughout Hospitalization: Therapy Orders & Screens 05/03/18 10:37 EKG ROUTINE Comment: acute chest pressure Diagnosis: hypertension Discharge Exam General Appearance: no apparent distress, alert Neurologic Exam: alert, oriented x 3, cooperative, normal mood/affect, nml cerebellar function, sensation nml, No motor deficits Skin Exam: normal color, warm, dry Eye Exam: PERRL, EOMI, eyes nml inspection Ears, Nose, Throat Exam: normal ENT inspection, pharynx normal, moist mucous membranes Neck Exam: normal inspection, non-tender, supple, full range of motion Respiratory Exam: normal breath sounds, lungs clear, No respiratory distress Cardiovascular Exam: regular rate/rhythm, normal heart sounds Gastrointestinal/Abdomen Exam: soft, No tenderness, No mass Extremity Exam: normal inspection, normal range of motion Back Exam: normal inspection, normal range of motion, No CVA tenderness, No vertebral tenderness Pelvic Exam: deferred Rectal Exam: deferred Final Diagnosis/Problem List - Final Discharge Diagnosis/Problem (1) Malignant hypertension Current Visit: Yes Status: Acute (2) Status post colectomy Current Visit: Yes Status: Acute - Discharge Discharge Date: 05/04/18 Disposition: Swing Bed @ [facility] Condition: Stable Prescriptions: No Action Ranitidine HCl [Zantac] 300 mg PO HS Metoprolol Tartrate 25 mg [Lopressor 25MG Tab] 25 mg PO BID Lisinopril 10 mg [Zestril 10 MG] 10 mg PO DAILY Alprazolam 0.25 mg [xanAX 0.25 MG] 0.25 mg PO BID PRN Follow up with: ELAINE NICOLE MD [Primary Care Provider] - 1 Week
[2018-05-04 11:05] VITALS: BP 139/63; PULSE 69; O2SAT 96
== END 2018-05-04 11:40 | disposition swing bed (61) | DRG 305 ==
LOC: ICU 18:05 → MED SURG 05-03 15:06
PROVIDERS: ADMIT General Practice; ATTEND General Practice
DX: I10 Essential (primary) hypertension (principal); Z90.49 Acquired absence of other specified parts of digestive tract; J44.9 Chronic obstructive pulmonary disease, unspecified; K21.9 Gastro-esophageal reflux disease without esophagitis; F41.9 Anxiety disorder, unspecified; Z87.440 Personal history of urinary (tract) infections; Z86.010 Personal history of colon polyps; Z79.899 Other long term (current) drug therapy
CPT/HCPCS: 36415; 80048; 80053; 83735; 84134; 84484; 85027; 93005; J1650; J2270; J2405; L0625; A9270-GY

== ENCOUNTER 2018-05-04 09:28 | Inpatient (IN) | payer MEDICARE, OTHER ==
--- NOTE | 2018-05-04 12:12 | PCM.NOTE ---
Date and Time: 05/04/18 1211 Subjective Assessment: edoing better - Review of Systems Constitutional: No Fever, No Chills Eyes: No Symptoms Ears, Nose, & Throat: No Symptoms Respiratory: No Cough, No Short Of Breath Cardiac: No Chest Pain, No Edema, No Syncope Abdominal/Gastrointestinal: No Abdominal Pain, No Nausea, No Vomiting, No Diarrhea Genitourinary Symptoms: No Dysuria Musculoskeletal: No Back Pain, No Neck Pain Skin: No Rash Neurological: No Dizziness, No Focal Weakness, No Sensory Changes Psychological: No Symptoms Endocrine: No Symptoms Hematologic/Lymphatic: No Symptoms Immunological/Allergic: No Symptoms Objective Exam General Appearance: no apparent distress, alert Neurologic Exam: alert, oriented x 3, cooperative, normal mood/affect, nml cerebellar function, sensation nml, No motor deficits Skin Exam: normal color, warm, dry Eye Exam: PERRL, EOMI, eyes nml inspection Ears, Nose, Throat Exam: normal ENT inspection, pharynx normal, moist mucous membranes Neck Exam: normal inspection, non-tender, supple, full range of motion Respiratory Exam: normal breath sounds, lungs clear, No respiratory distress Cardiovascular Exam: regular rate/rhythm, normal heart sounds Gastrointestinal/Abdomen Exam: soft, No tenderness, No mass Extremity Exam: normal inspection, normal range of motion Back Exam: normal inspection, normal range of motion, No CVA tenderness, No vertebral tenderness Pelvic Exam: deferred Rectal Exam: deferred Assessment/Plan (1) Debility, unspecified Current Visit: Yes Status: Acute Assessment & Plan: Chief Complaint Diagnosis DECONDITIONING R/T HEMICOLECTOMY, HTN Allergies Allergy/AdvReac Type Severity Reaction Status Date / Time iodine Allergy Unknown Verified 07/15/17 07:16 Penicillins Allergy Unknown Nausea Verified 07/15/17 07:19 cephalexin [From Keflex] Allergy Nausea Verified 07/15/17 07:19 latex Allergy Verified 05/02/18 21:55 levofloxacin [From Levaquin] Allergy Stomach Verified 07/15/17 07:19 Cramps sulfamethoxazole Allergy Verified 07/15/17 07:17 [From Bactrim] trimethoprim [From Bactrim] Allergy Stomach Verified 07/15/17 07:19 Pain Vital Signs (Last 24 hours) Temp Pulse Resp BP Pulse Ox 05/08/18 07:23 98.8 F 74 18 136/68 97 05/08/18 03:58 99.0 F 67 20 138/63 96 05/07/18 23:41 97.9 F 79 16 148/68 97 05/07/18 18:55 97.7 F 68 17 123/58 96 05/07/18 16:00 98.1 F 70 18 151/70 96 05/07/18 12:00 98.4 F 67 18 132/62 96 Current Medications Generic Name Dose Route Start Last Admin Trade Name Freq PRN Reason Stop Dose Admin Acetaminophen 650 mg 05/04/18 12:23 05/05/18 03:36 Feverall 650 Mg [place] 06/01/18 18:53 650 mg Q4H PRN PRN Administration PAIN AND/OR FEVER Acetaminophen 650 mg 05/04/18 18:37 05/08/18 01:32 Tylenol 325 Mg PO 06/03/18 18:36 650 mg Q4H PRN PRN Administration PAIN AND/OR FEVER Alprazolam 0.25 mg 05/04/18 12:23 Xanax 0.25 Mg PO 06/02/18 10:14 BID PRN PRN Carvedilol 12.5 mg 05/07/18 22:00 05/07/18 21:45 Coreg 12.5 Mg PO 06/06/18 21:59 12.5 mg BID BRANNON Administration Enoxaparin Sodium 40 mg 05/05/18 10:00 05/07/18 10:56 Enoxaparin Sodium SQ 06/03/18 09:59 40 mg DAILY BRANNON Administration Lisinopril 10 mg 05/05/18 10:00 05/07/18 10:56 Zestril 10 Mg PO 06/04/18 09:59 10 mg DAILY BRANNON Administration Loperamide HCl 2 mg 05/07/18 14:20 05/07/18 14:48 Imodium 2 Mg PO 06/06/18 14:19 2 mg PRN PRN Administration DIARRHEA Morphine Sulfate 2 mg 05/04/18 12:23 05/04/18 21:30 Morphine Sulfate 2 Mg Inj IV 05/09/18 12:22 2 mg Q4H PRN PRN Administration PAIN Ondansetron HCl 4 mg 05/04/18 12:23 05/07/18 05:23 Zofran 4 Mg/2 Ml Vial IV 06/01/18 19:15 4 mg Q4H PRN PRN Administration NAUSEA/VOMITING Pantoprazole Sodium 40 mg 05/04/18 20:00 05/07/18 21:46 Protonix 40 Mg Iv IV 06/01/18 19:59 40 mg Q24H BRANNON Administration Sodium Chloride 10 ml 05/05/18 14:00 05/08/18 06:31 Sodium Chloride 0.9% 10 Ml Flush Syringe IV 06/04/18 13:59 10 ml Q8HT BRANNON Administration Sodium Chloride 10 ml 05/05/18 08:30 05/07/18 05:23 Sodium Chloride 0.9% 10 Ml Flush Syringe IV 06/04/18 08:29 10 ml PRN PRN Administration Discontinued Medications Generic Name Dose Route Start Last Admin Trade Name Freq PRN Reason Stop Dose Admin Enalaprilat 1.25 mg 05/05/18 10:00 Vasotec I.V. 2.5 Mg IV 06/03/18 09:59 DAILY BRANNON Sodium Chloride 1,000 mls @ 100 mls/hr 05/04/18 12:23 05/04/18 19:30 Sodium Chloride 0.9% 1000 Ml IV 06/02/18 11:59 Not Given .Q10H BRANNON Labetalol HCl 200 mg 05/04/18 22:00 05/07/18 10:56 Trandate 100 Mg PO 06/03/18 21:59 200 mg BID BRANNON Administration Labetalol HCl 20 mg 05/04/18 18:00 Trandate 20 Mg/5 Ml Syringe IV 06/02/18 17:59 Q6HT BRANNON Metoprolol Tartrate 25 mg 05/04/18 22:00 Lopressor 25mg Tab PO 06/02/18 10:14 BID BRANNON Tuberculin PPD 5 unit 05/04/18 12:23 05/04/18 18:47 Aplisol ID 05/04/18 12:24 Not Given ONCE ONE Intake & Output (Last 24 hours) 05/05/18 05/06/18 05/07/18 05/08/18 11:59 11:59 11:59 11:59 Intake Total 720 600 950 640 Output Total 500 850 550 300 Balance 220 -250 400 340 Weight 62.596 kg 62.596 kg Orders (Last 24 hours) Category Date Time Status BMP Q14D Lab 05/18/18 05:00 Ordered Carvedilol 12.5 mg [Coreg 12.5 mg] Med 05/07/18 22:00 Active 12.5 mg PO BID Loperamide HCl 2 mg [Imodium 2 mg] Med 05/07/18 14:20 Active 2 mg PO PRN PRN Patient Care Notes (Last 24 hours) 05/07/18 15:30 (created 05/07/18 18:41) Nursing Note by Yamini Loja No further c/o loose stools at this time. Initialized on 05/07/18 18:41 - END OF NOTE 05/07/18 14:21 Nursing Note by Yamini Loja Dr called. Reported pt's c/o tongue feeling thick after starting labetolol and frequently loose stools. Received new orders. 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
[2018-05-04] MEDS ORDERED: xanAX 0.25 MG PO PRN (12:23)
[2018-05-04] MEDS ORDERED: Sodium Chloride 0.9% 1000 ML 1,000 ML IV SCH (12:23)
[2018-05-04] MEDS ORDERED: Aplisol ID ONE (12:23)
[2018-05-04] MEDS ORDERED: FEVERALL 650 MG PR PRN (12:23)
[2018-05-04] MEDS ORDERED: MORPHINE SULFATE 2 MG INJ IV PRN (12:23)
[2018-05-04] MEDS ORDERED: TRANDATE 20 MG/5 ML SYRINGE IV SCH (18:00)
[2018-05-04] MEDS: PROTONIX 40 MG IV IV SCH (21:29)
[2018-05-04] MEDS: Trandate 100 MG PO SCH (21:30)
[2018-05-04] MEDS: Zofran 4 MG/2 ML VIAL IV PRN (21:30)
[2018-05-04] MEDS ORDERED: Lopressor 25MG Tab PO SCH (22:00)
[2018-05-05] MEDS ORDERED: Sodium Chloride 0.9% 10 ML FLUSH Syringe IV PRN (08:30)
[2018-05-05] MEDS: Zestril 10 MG PO SCH (09:29)
[2018-05-05] MEDS: Trandate 100 MG PO SCH ×2 (09:30→21:04)
[2018-05-05] MEDS: ENOXAPARIN SODIUM SQ SCH (09:30)
[2018-05-05] MEDS ORDERED: VASOTEC I.V. 2.5 MG IV SCH (10:00)
[2018-05-05] MEDS: TYLENOL 325 MG PO PRN (12:20)
--- NOTE | 2018-05-05 12:27 | PCM.NOTE ---
Date and Time: 05/05/18 1226 Subjective Assessment: doing better - Review of Systems Constitutional: No Fever, No Chills Eyes: No Symptoms Ears, Nose, & Throat: No Symptoms Respiratory: No Cough, No Short Of Breath Cardiac: No Chest Pain, No Edema, No Syncope Abdominal/Gastrointestinal: No Abdominal Pain, No Nausea, No Vomiting, No Diarrhea Genitourinary Symptoms: No Dysuria Musculoskeletal: No Back Pain, No Neck Pain Skin: No Rash Neurological: No Dizziness, No Focal Weakness, No Sensory Changes Psychological: No Symptoms Endocrine: No Symptoms Hematologic/Lymphatic: No Symptoms Immunological/Allergic: No Symptoms Objective Exam General Appearance: no apparent distress, alert Neurologic Exam: alert, oriented x 3, cooperative, normal mood/affect, nml cerebellar function, sensation nml, No motor deficits Skin Exam: normal color, warm, dry Eye Exam: PERRL, EOMI, eyes nml inspection Ears, Nose, Throat Exam: normal ENT inspection, pharynx normal, moist mucous membranes Neck Exam: normal inspection, non-tender, supple, full range of motion Respiratory Exam: normal breath sounds, lungs clear, No respiratory distress Cardiovascular Exam: regular rate/rhythm, normal heart sounds Gastrointestinal/Abdomen Exam: soft, No tenderness, No mass Extremity Exam: normal inspection, normal range of motion Back Exam: normal inspection, normal range of motion, No CVA tenderness, No vertebral tenderness Pelvic Exam: deferred Rectal Exam: deferred OBJECTIVE DATA Vital Signs: Vital Signs - 24 hr Temp Pulse Resp BP Pulse Ox 05/05/18 07:35 98.7 F 74 18 127/62 94 L 05/05/18 04:00 98.5 F 70 18 126/61 94 L 05/04/18 23:43 98.8 F 69 16 105/54 93 L 05/04/18 20:00 98.8 F 70 18 169/77 94 L 05/04/18 16:00 98.9 F 70 18 139/62 95 05/04/18 13:36 98.9 F 69 18 139/63 96 Pain Assessment - Last Documented Pain Intensity 0 Pain Scale Used 0-10 Pain Scale Intake and Output: Intake & Output 05/03/18 05/04/18 05/05/18 05/06/18 11:59 11:59 11:59 11:59 Intake Total 720 Output Total 500 Balance 220 Weight 62.596 kg Assessment/Plan (1) Debility, unspecified Current Visit: Yes Status: Acute Code(s): R53.81 - OTHER MALAISE (2) Malignant hypertension Current Visit: Yes Status: Chronic Code(s): I10 - ESSENTIAL (PRIMARY) HYPERTENSION (3) Status post colectomy Current Visit: No Status: Acute Code(s): Z90.49 - ACQUIRED ABSENCE OF OTHER SPECIFIED PARTS OF DIGESTIVE TRACT
[2018-05-05 12:50] LABS: 027 TOX PROD PRESUMPTIVE NEGATIVE (NEGATIVE); TOXIGENIC C. DIFF ORG NEGATIVE (NEGATIVE)
[2018-05-05] MEDS: Sodium Chloride 0.9% 10 ML FLUSH Syringe IV SCH ×2 (14:31→19:38)
[2018-05-05] MEDS: PROTONIX 40 MG IV IV SCH (19:37)
[2018-05-06] MEDS: TYLENOL 325 MG PO PRN ×2 (02:00→17:52)
[2018-05-06] MEDS: Sodium Chloride 0.9% 10 ML FLUSH Syringe IV SCH ×3 (06:11→21:39)
[2018-05-06] MEDS: Zestril 10 MG PO SCH (09:32)
[2018-05-06] MEDS: Trandate 100 MG PO SCH ×2 (09:32→21:40)
[2018-05-06] MEDS: ENOXAPARIN SODIUM SQ SCH (09:32)
[2018-05-06] MEDS: PROTONIX 40 MG IV IV SCH (21:37)
[2018-05-07] MEDS: TYLENOL 325 MG PO PRN ×2 (05:22→15:56)
[2018-05-07] MEDS: Zofran 4 MG/2 ML VIAL IV PRN (05:23)
[2018-05-07] MEDS: Sodium Chloride 0.9% 10 ML FLUSH Syringe IV SCH ×3 (05:28→21:46)
[2018-05-07] MEDS: Trandate 100 MG PO SCH (10:56)
[2018-05-07] MEDS: ENOXAPARIN SODIUM SQ SCH (10:56)
[2018-05-07] MEDS: Zestril 10 MG PO SCH (10:56)
[2018-05-07] MEDS ORDERED: IMODIUM 2 MG PO PRN (14:20)
[2018-05-07] MEDS: COREG 12.5 MG PO SCH (21:45)
[2018-05-07] MEDS: PROTONIX 40 MG IV IV SCH (21:46)
[2018-05-08] MEDS: TYLENOL 325 MG PO PRN ×2 (01:32→19:06)
[2018-05-08] MEDS: Sodium Chloride 0.9% 10 ML FLUSH Syringe IV SCH ×3 (06:31→21:06)
--- NOTE | 2018-05-08 08:51 | PCM.NOTE ---
Date and Time: 05/08/18 0850 Subjective Assessment: doing better, tolerating diet undergoing rehab. - Review of Systems Constitutional: No Fever, No Chills Eyes: No Symptoms Ears, Nose, & Throat: No Symptoms Respiratory: No Cough, No Short Of Breath Cardiac: No Chest Pain, No Edema, No Syncope Abdominal/Gastrointestinal: No Abdominal Pain, No Nausea, No Vomiting, No Diarrhea Genitourinary Symptoms: No Dysuria Musculoskeletal: No Back Pain, No Neck Pain Skin: No Rash Neurological: No Dizziness, No Focal Weakness, No Sensory Changes Psychological: No Symptoms Endocrine: No Symptoms Hematologic/Lymphatic: No Symptoms Immunological/Allergic: No Symptoms Objective Exam General Appearance: no apparent distress, alert Neurologic Exam: alert, oriented x 3, cooperative, normal mood/affect, nml cerebellar function, sensation nml, No motor deficits Skin Exam: normal color, warm, dry Eye Exam: PERRL, EOMI, eyes nml inspection Ears, Nose, Throat Exam: normal ENT inspection, pharynx normal, moist mucous membranes Neck Exam: normal inspection, non-tender, supple, full range of motion Respiratory Exam: normal breath sounds, lungs clear, No respiratory distress Cardiovascular Exam: regular rate/rhythm, normal heart sounds Gastrointestinal/Abdomen Exam: soft, No tenderness, No mass Extremity Exam: normal inspection, normal range of motion Back Exam: normal inspection, normal range of motion, No CVA tenderness, No vertebral tenderness Pelvic Exam: deferred Rectal Exam: deferred OBJECTIVE DATA Vital Signs: Vital Signs - 24 hr Temp Pulse Resp BP Pulse Ox 05/08/18 07:23 98.8 F 74 18 136/68 97 05/08/18 03:58 99.0 F 67 20 138/63 96 05/07/18 23:41 97.9 F 79 16 148/68 97 05/07/18 18:55 97.7 F 68 17 123/58 96 05/07/18 16:00 98.1 F 70 18 151/70 96 05/07/18 12:00 98.4 F 67 18 132/62 96 Pain Assessment - Last Documented Pain Intensity 4 Pain Scale Used 0-10 Pain Scale Intake and Output: Intake & Output 05/05/18 05/06/18 05/07/18 05/08/18 11:59 11:59 11:59 11:59 Intake Total 720 600 950 640 Output Total 500 850 550 300 Balance 220 -250 400 340 Weight 62.596 kg 62.596 kg Assessment/Plan (1) Debility, unspecified Current Visit: Yes Status: Acute Code(s): R53.81 - OTHER MALAISE (2) Malignant hypertension Current Visit: Yes Status: Resolved Code(s): I10 - ESSENTIAL (PRIMARY) HYPERTENSION (3) Status post colectomy Current Visit: No Status: Acute Code(s): Z90.49 - ACQUIRED ABSENCE OF OTHER SPECIFIED PARTS OF DIGESTIVE TRACT
[2018-05-08] MEDS: COREG 12.5 MG PO SCH ×2 (09:20→21:06)
[2018-05-08] MEDS: Zestril 10 MG PO SCH (09:20)
[2018-05-08] MEDS: ENOXAPARIN SODIUM SQ SCH (09:20)
[2018-05-08 16:33] LABS: Appearance SLIGHTLY CLOUDY (CLEAR); Bilirubin NEGATIVE (NEGATIVE); Blood MODERATE Ery/ul (0-5); Glucose NEGATIVE (NEGATIVE); Ketones NEGATIVE (NEGATIVE); Leukocyte Esterase LARGE (NEGATIVE); Nitrite NEGATIVE (NEGATIVE); Protein,Urine Dip 30 (Negative); Specific Gravity 1.004 (1.005-1.025); Urobilinogen NEGATIVE mg/dL (0-1)
[2018-05-08] MEDS: PROTONIX 40 MG IV IV SCH (21:06)
[2018-05-09] MEDS: Sodium Chloride 0.9% 10 ML FLUSH Syringe IV SCH (05:30)
[2018-05-09] MEDS: Zestril 10 MG PO SCH (09:00)
[2018-05-09] MEDS: COREG 12.5 MG PO SCH (09:00)
[2018-05-09] MEDS: ENOXAPARIN SODIUM SQ SCH (09:00)
[2018-05-09] MEDS: TYLENOL 325 MG PO PRN (11:31)
[2018-05-09 12:09] VITALS: BP 175/77; PULSE 65; O2SAT 98
--- NOTE | 2018-05-09 12:09 | PCM.DS ---
Discharge Summary Date of Admission: 05/04/18 11:40 Admitting Physician: ELAINE NICOLE Primary Care Provider: ELAINE NICOLE Allergies Allergies iodine Allergy (Unknown, Verified 07/15/17 07:16) Penicillins Allergy (Unknown, Verified 07/15/17 07:19) Nausea cephalexin [From Keflex] Allergy (Verified 07/15/17 07:19) Nausea latex Allergy (Verified 05/02/18 21:55) levofloxacin [From Levaquin] Allergy (Verified 07/15/17 07:19) Stomach Cramps sulfamethoxazole [From Bactrim] Allergy (Verified 07/15/17 07:17) trimethoprim [From Bactrim] Allergy (Verified 07/15/17 07:19) Stomach Pain Hospital Summary - Hospital Course Hospital Course: Chief Complaint Diagnosis DECONDITIONING R/T HEMICOLECTOMY, HTN Allergies Allergy/AdvReac Type Severity Reaction Status Date / Time iodine Allergy Unknown Verified 07/15/17 07:16 Penicillins Allergy Unknown Nausea Verified 07/15/17 07:19 cephalexin [From Keflex] Allergy Nausea Verified 07/15/17 07:19 latex Allergy Verified 05/02/18 21:55 levofloxacin [From Levaquin] Allergy Stomach Verified 07/15/17 07:19 Cramps sulfamethoxazole Allergy Verified 07/15/17 07:17 [From Bactrim] trimethoprim [From Bactrim] Allergy Stomach Verified 07/15/17 07:19 Pain Vital Signs (Last 24 hours) Temp Pulse Resp BP Pulse Ox 05/09/18 06:59 98.2 F 61 18 165/73 95 05/09/18 04:00 97.8 F 65 16 162/79 96 05/08/18 23:27 98.3 F 82 16 151/67 98 05/08/18 19:22 98.5 F 67 17 181/79 97 05/08/18 16:40 98.1 F 67 20 180/77 96 05/08/18 12:08 97.8 F 78 20 138/76 97 Current Medications Generic Name Dose Route Start Last Admin Trade Name Freq PRN Reason Stop Dose Admin Acetaminophen 650 mg 05/04/18 12:23 05/05/18 03:36 Feverall 650 Mg [place] 06/01/18 18:53 650 mg Q4H PRN PRN Administration PAIN AND/OR FEVER Acetaminophen 650 mg 05/04/18 18:37 05/09/18 11:31 Tylenol 325 Mg PO 06/03/18 18:36 650 mg Q4H PRN PRN Administration PAIN AND/OR FEVER Alprazolam 0.25 mg 05/04/18 12:23 Xanax 0.25 Mg PO 06/02/18 10:14 BID PRN PRN Carvedilol 12.5 mg 05/07/18 22:00 05/09/18 09:00 Coreg 12.5 Mg PO 06/06/18 21:59 12.5 mg BID BRANNON Administration Enoxaparin Sodium 40 mg 05/05/18 10:00 05/09/18 09:00 Enoxaparin Sodium SQ 06/03/18 09:59 40 mg DAILY BRANNON Administration Lisinopril 10 mg 05/05/18 10:00 05/09/18 09:00 Zestril 10 Mg PO 06/04/18 09:59 10 mg DAILY BRANNON Administration Loperamide HCl 2 mg 05/07/18 14:20 05/07/18 14:48 Imodium 2 Mg PO 06/06/18 14:19 2 mg PRN PRN Administration DIARRHEA Pantoprazole Sodium 40 mg 05/09/18 22:00 Protonix 40mg Tablet PO 06/08/18 21:59 HS BRANNON Discontinued Medications Generic Name Dose Route Start Last Admin Trade Name Freq PRN Reason Stop Dose Admin Enalaprilat 1.25 mg 05/05/18 10:00 Vasotec I.V. 2.5 Mg IV 06/03/18 09:59 DAILY BRANNON Sodium Chloride 1,000 mls @ 100 mls/hr 05/04/18 12:23 05/04/18 19:30 Sodium Chloride 0.9% 1000 Ml IV 06/02/18 11:59 Not Given .Q10H BRANNON Labetalol HCl 200 mg 05/04/18 22:00 05/07/18 10:56 Trandate 100 Mg PO 06/03/18 21:59 200 mg BID BRANNON Administration Labetalol HCl 20 mg 05/04/18 18:00 Trandate 20 Mg/5 Ml Syringe IV 06/02/18 17:59 Q6HT [facility] Metoprolol Tartrate 25 mg 05/04/18 22:00 Lopressor 25mg Tab PO 06/02/18 10:14 BID BRANNON Morphine Sulfate 2 mg 05/04/18 12:23 05/04/18 21:30 Morphine Sulfate 2 Mg Inj IV 05/09/18 12:22 2 mg Q4H PRN PRN Administration PAIN Ondansetron HCl 4 mg 05/04/18 12:23 05/07/18 05:23 Zofran 4 Mg/2 Ml Vial IV 06/01/18 19:15 4 mg Q4H PRN PRN Administration NAUSEA/VOMITING Pantoprazole Sodium 40 mg 05/04/18 20:00 05/08/18 21:06 Protonix 40 Mg Iv IV 06/01/18 19:59 40 mg Q24H BRANNON Administration Sodium Chloride 10 ml 05/05/18 14:00 05/09/18 05:30 Sodium Chloride 0.9% 10 Ml Flush Syringe IV 06/04/18 13:59 10 ml Q8HT BRANNON Administration Sodium Chloride 10 ml 05/05/18 08:30 05/07/18 05:23 Sodium Chloride 0.9% 10 Ml Flush Syringe IV 06/04/18 08:29 10 ml PRN PRN Administration Tuberculin PPD 5 unit 05/04/18 12:23 05/04/18 18:47 Aplisol ID 05/04/18 12:24 Not Given ONCE ONE Intake & Output (Last 24 hours) 05/07/18 05/08/18 05/09/18 05/10/18 11:59 11:59 11:59 11:59 Intake Total 950 640 780 Output Total 434 337 1784 Balance 400 340 -720 Microbiology Results (Last 24 hours) 05/08/18 18:10 Urine, Void Urine Culture - Preliminary GRAM NEGATIVE ID AND SENSITIVITY PENDING Laboratory Results (Last 24 hours) 05/08/18 16:07 Urine Color YELLOW Urine Appearance SLIGHTLY CLOUDY Urine pH 6.0 Ur Specific [place] 1.004 Urine Protein 30 Urine Ketones NEGATIVE Urine Blood MODERATE Urine Nitrite NEGATIVE Urine Bilirubin NEGATIVE Urine Urobilinogen NEGATIVE Ur Leukocyte Esterase LARGE Urine WBC (Auto) 26-50 Urine RBC (Auto) 11-15 U Epithel Cells (Auto) RARE Urine Bacteria (Auto) PACKED Urine Mucus (Auto) SLIGHT Urine Glucose NEGATIVE Orders (Last 24 hours) Category Date Time Status Miscellaneous Nursing Order ROUTINE Care 05/09/18 11:26 Active BMP Q14D Lab 05/18/18 05:00 Ordered CULTURE,URINE Routine Lab 05/08/18 18:10 Results UA W/MICROSCOPY [Urinalysis with Microscopy] Urgent Lab 05/08/18 16:07 Completed PANTOPRAZOLE 40 mg Tablet [Protonix 40MG Tablet] Med 05/09/18 22:00 Active 40 mg PO HS Patient Care Notes (Last 24 hours) 05/08/18 17:38 WELDER 2ND SHIFT Note by Sanna Yanez walked in hallway with stand-by assist. Initialized on 05/08/18 17:38 - END OF NOTE 05/08/18 16:56 Nursing Note by Yamini Loja Reported UA results to Dr Nicole; new order received. Initialized on 05/08/18 16:56 - END OF NOTE 05/08/18 16:00 (created 05/08/18 16:49) Nursing Note by Yamini Loja Pt c/o burning with urination. Urine obtained per order. Initialized on 05/08/18 16:49 - END OF NOTE - Vitals & Intake/Output Vital Signs: Vital Signs Temperature 98.2 F 05/09/18 06:59 Pulse Rate 61 05/09/18 06:59 Respiratory Rate 18 05/09/18 06:59 Blood Pressure 165/73 05/09/18 06:59 O2 Sat by Pulse Oximetry 95 05/09/18 06:59 Intake & Output: Intake & Output 05/07/18 05/08/18 05/09/18 05/10/18 11:59 11:59 11:59 11:59 Intake Total 950 640 780 Output Total 783 472 1832 Balance 400 340 -720 - Lab Lab Results-Last 24 Hrs: Lab Results-Last 24 Hours 05/08/18 Range/Units 16:07 Urine Color YELLOW (YELLOW) Urine Appearance SLIGHTLY CLOUDY (CLEAR) Urine pH 6.0 (5-6) Ur Specific [place] 1.004 (1.005-1.025) Urine Protein 30 (Negative) Urine Ketones NEGATIVE (NEGATIVE) Urine Blood MODERATE (0-5) Jh/ul Urine Nitrite NEGATIVE (NEGATIVE) Urine Bilirubin NEGATIVE (NEGATIVE) Urine Urobilinogen NEGATIVE (0-1) mg/dL Ur Leukocyte Esterase LARGE (NEGATIVE) Urine WBC (Auto) 26-50 (0-5) /HPF Urine RBC (Auto) 11-15 (0-2) /HPF U Epithel Cells (Auto) RARE (FEW) /HPF Urine Bacteria (Auto) PACKED (NEGATIVE) /HPF Urine Mucus (Auto) SLIGHT (NEGATIVE) /HPF Urine Glucose NEGATIVE (NEGATIVE) mg/dL Micro Results-Entire Visit: Microbiology 05/08/18 18:10 Urine Culture - Preliminary Urine, Void GRAM NEGATIVE ID AND SENSITIVITY PENDING - Procedures and Test Procedures and Tests throughout Hospitalization: Therapy Orders & Screens 05/04/18 12:23 OT Eval and Treat ( Order) ROUTINE Comment: Consulting Provider: Physician Instructions: Reason For Exam: DECONDITIONING, SWING BED Diagnosis: DECONDITIONING R/T HEMICOLECTOMY, HTN PT Eval & Treat ( Order) ROUTINE Reason for Eval:: DECONDITIONING Diagnosis: DECONDITIONING R/T HEMICOLECTOMY, HTN 05/04/18 14:56 ST Eval & Treat ( Order) .as ordered Comment: Physician Instructions: Reason For Exam: difficulty when swallowing Evaluate: Yes Treat: Yes Reason for Eval: bedside swallow eval Diagnosis: DECONDITIONING R/T HEMICOLECTOMY, HTN Discharge Exam General Appearance: no apparent distress, alert Neurologic Exam: alert, oriented x 3, cooperative, normal mood/affect, nml cerebellar function, sensation nml, No motor deficits Skin Exam: normal color, warm, dry Eye Exam: PERRL, EOMI, eyes nml inspection Ears, Nose, Throat Exam: normal ENT inspection, pharynx normal, moist mucous membranes Neck Exam: normal inspection, non-tender, supple, full range of motion Respiratory Exam: normal breath sounds, lungs clear, No respiratory distress Cardiovascular Exam: regular rate/rhythm, normal heart sounds Gastrointestinal/Abdomen Exam: soft, No tenderness, No mass Extremity Exam: normal inspection, normal range of motion Back Exam: normal inspection, normal range of motion, No CVA tenderness, No vertebral tenderness Pelvic Exam: deferred Rectal Exam: deferred Final Diagnosis/Problem List - Final Discharge Diagnosis/Problem (1) Debility, unspecified Current Visit: Yes Status: Acute (2) Malignant hypertension Current Visit: Yes Status: Resolved (3) Status post colectomy Current Visit: No Status: Acute - Discharge Discharge Date: 05/09/18 Disposition: Home, Self-Care Condition: Stable Prescriptions: New Labetalol HCl 100 mg [Trandate 100 MG] 100 mg PO BID #60 tablet Continue Ranitidine HCl [Zantac] 300 mg PO HS Metoprolol Tartrate 25 mg [Lopressor 25MG Tab] 25 mg PO BID Lisinopril 10 mg [Zestril 10 MG] 10 mg PO DAILY Alprazolam 0.25 mg [xanAX 0.25 MG] 0.25 mg PO BID PRN Follow up with: KALEIGH ZAYAS [ACTIVE STAFF] - 05/19/18 2:30 pm ([facility] [place] [facility] [place] ELAINE NICOLE MD [Primary Care Provider] - 1 Week
[2018-05-09] MEDS ORDERED: Trandate 100 MG PO ONE (12:17)
[2018-05-09] MEDS ORDERED: Protonix 40MG Tablet PO SCH (22:00)
== END 2018-05-09 13:35 | disposition home or self-care (01) | DRG 948 ==
LOC: MED SURG 11:40
PROVIDERS: ADMIT General Practice; ATTEND General Practice
DX: R53.81 Other malaise (principal); I10 Essential (primary) hypertension; Z90.49 Acquired absence of other specified parts of digestive tract; J44.9 Chronic obstructive pulmonary disease, unspecified; K21.9 Gastro-esophageal reflux disease without esophagitis; F41.9 Anxiety disorder, unspecified; Z79.899 Other long term (current) drug therapy
CPT/HCPCS: 81001; 87077; 87086; 87186; 87493; J1650; J2270; J2405; 97110-GP; A9270-GY

== ENCOUNTER 2019-04-14 12:16 | Inpatient (IN) | payer MEDICARE, OTHER ==
--- NOTE | 2019-04-14 13:06 | ERPHSYRPT ---
- History of Present Illness Historian: patient, family Exam Limitations: no limitations Patient Subjective Stated Complaint: pt here for abd pain since wednesday, and weakness to legs she states she has felt like she was "going out". she states happens when she is up Triage Nursing Assessment: pt alert, resp easy,skin w/d/p. walked back with no difficulty, abd soft, right leg slightly swollen which pt states is normal for her ,abd soft Timing/Duration: day(s) (3) Activities at Onset: none Quality: stabbing Abdominal Pain Onset Location: RUQ, epigastric Pain Radiation: no radiation Severity of Pain-Max: moderate Severity of Pain-Current: none Modifying Factors: Improves With: eating Associated Symptoms: back, other (Leg weakness, Near Syncope, Dizziness) Previous symptoms: no prior history Allergies/Adverse Reactions: iodine Allergy (Unknown, Verified 04/14/19 12:43) Penicillins Allergy (Unknown, Verified 04/14/19 12:43) Nausea cephalexin [From Keflex] Allergy (Verified 04/14/19 12:43) Nausea latex Allergy (Verified 04/14/19 12:43) levofloxacin [From Levaquin] Allergy (Verified 04/14/19 12:43) Stomach Cramps sulfamethoxazole [From Bactrim] Allergy (Verified 04/14/19 12:43) trimethoprim [From Bactrim] Allergy (Verified 04/14/19 12:43) Stomach Pain Home Medications: raNITIdine HCl [Zantac] 300 mg PO HS 03/08/16 [History] Alprazolam 0.25 mg [xanAX 0.25 MG] 0.25 mg PO BID PRN 04/23/16 [History] Amlodipine Besylate 5 mg [Norvasc 5 mg] 5 mg DAILY 04/14/19 [History] Lisinopril 10 mg [Zestril 10 MG] 10 mg DAILY 04/14/19 [History] Hx Tetanus, Diphtheria Vaccination/Date Given: Yes Hx Influenza Vaccination/Date Given: No Hx Pneumococcal Vaccination/Date Given: No Immunizations Up to Date: Yes - Review of Systems Constitutional: No Fever, No Chills Eyes: No Symptoms Ears, Nose, & Throat: No Symptoms Respiratory: No Cough, No Dyspnea Cardiac: No Chest Pain, No Edema, No Syncope Abdominal/Gastrointestinal: Abdominal Pain, Nausea, No Vomiting, No Diarrhea Genitourinary Symptoms: No Dysuria Musculoskeletal: No Back Pain, No Neck Pain Skin: No Rash Neurological: Vertigo, Other (near syncope, leg weakness), No Dizziness, No Focal Weakness, No Sensory Changes Psychological: No Symptoms Endocrine: No Symptoms All Other Systems: Reviewed and Negative - Past Medical History Pertinent Past Medical History: Yes Neurological History: No Pertinent History ENT History: Cataracts Cardiac History: Hypertension Respiratory History: COPD Endocrine Medical History: No Pertinent History Musculoskeletal History: No Pertinent History GI Medical History: GERD, Hernia History: Other Psycho-Social History: Anxiety Female Reproductive Disorders: No Pertinent History Other Medical History: frequent UTI's - Past Surgical History Past Surgical History: Yes Neuro Surgical History: No Pertinent History Cardiac: No Pertinent History Respiratory: No Pertinent History Gastrointestinal: Appendectomy, Bowel Surgery, Hernia Repair Genitourinary: No Pertinent History Musculoskeletal: No Pertinent History Female Surgical History: Hysterectomy Other Surgical History: september colon resection , "we were never told if it was cancer or not" "Dr Pelayo", Have had polypectomy since", states "throat stretched twice" - Social History Smoking Status: Never smoker Exposure to second hand smoke: No Alcohol Use: None Drug Use: none Patient Lives Alone: Yes Significant Family History: no pertinent family hx - Female History Hx Last Menstrual Period: post Hx Now: No - Nursing Vital Signs Nursing Vital Signs: Initial Vital Signs Temperature 97.4 F 04/14/19 12:34 Pulse Rate 45 L 04/14/19 12:34 Respiratory Rate 16 04/14/19 12:34 Blood Pressure 139/67 04/14/19 12:34 O2 Sat by Pulse Oximetry 99 04/14/19 12:34 Pain Scale Pain Intensity 6 - Physical Exam General Appearance: no apparent distress, alert Eye Exam: PERRL/EOMI, eyes nml inspection Ears, Nose, Throat Exam: normal ENT inspection, pharynx normal, moist mucous membranes Neck Exam: normal inspection, non-tender, supple, full range of motion Respiratory Exam: normal breath sounds, lungs clear, No respiratory distress Cardiovascular Exam: regular rate/rhythm, normal heart sounds Gastrointestinal/Abdomen Exam: soft, No tenderness, No mass Back Exam: normal inspection, normal range of motion, No CVA tenderness, No vertebral tenderness Extremity Exam: normal inspection, normal range of motion, pelvis stable Neurologic Exam: alert, oriented x 3, cooperative, normal mood/affect, nml cerebellar function, sensation nml, No motor deficits, No sensory deficit, No disoriented, No confusion Skin Exam: normal color, warm, dry SpO2: 99 - Course Nursing assessment & vital signs reviewed: Yes EKG Interpreted by Me: Sinus Rhythm, Left Bundle Branch Block, Non-specific ST Changes - CT Exams Abdomen/Pelvis CT Interpretation: Other (Acalculous cholecystitis) Ordered Tests: Active Orders 24 hr Category Date Time Status EKG-ER Only STAT Care 04/14/19 13:03 Active IV Insertion STAT Care 04/14/19 13:03 Active ABDOMEN AND PELVIS W/0 CONTRAS [CT] Routine Exams 04/14/19 14:27 Completed CHEST 1 VIEW (PORTABLE) Stat Exams 04/14/19 13:04 Completed HEAD WITHOUT CONTRAST [CT] Stat Exams 04/14/19 13:05 Completed CBC W DIFF Stat Lab 04/14/19 13:03 Completed CMP Stat Lab 04/14/19 Completed CULTURE,URINE Stat Lab 04/14/19 13:19 Received LIPASE Stat Lab 04/14/19 Completed TROPONIN Stat Lab 04/14/19 Completed UA W/RFX UR CULTURE Stat Lab 04/14/19 13:19 Completed Medication Summary Generic Name Dose Route Start Last Admin Trade Name Freq PRN Reason Stop Dose Admin Sodium Chloride 1,000 mls @ 100 mls/hr 04/14/19 13:15 04/14/19 13:24 Sodium Chloride 0.9% 1000 Ml IV 05/14/19 13:14 100 mls/hr .Q10H BRANNON Administration Lab/Rad Data: Laboratory Result Diagrams 04/14/19 13:03 04/14/19 Unknown Laboratory Results 04/14/19 04/14/19 04/14/19 Range/Units Unknown 13:19 13:03 WBC 9.0 (4.0-10.5) K/mm3 RBC 4.01 L (4.1-5.4) M/mm3 Hgb 12.0 (12.0-16.0) gm/dl Hct 37.0 (35-47) % MCV 92.3 (78-100) fl MCH 29.9 (26-32) pg MCHC 32.4 (32-36) g/dl RDW 15.1 H (11.5-14.0) % Plt Count 168 (150-450) K/mm3 MPV 12.9 H (6-9.5) fl Gran % 68.0 H (36.0-66.0) % Eos # (Auto) 0.09 (0-0.5) Absolute Lymphs (auto) 1.97 (1.0-4.6) Absolute Monos (auto) 0.79 (0.0-1.3) Lymphocytes % 22.0 L (24.0-44.0) % Monocytes % 8.8 (0.0-12.0) % Eosinophils % 1.0 (0.00-5.0) % Basophils % 0.2 (0.0-0.4) % Absolute Granulocytes 6.08 (1.4-6.9) Basophils # 0.02 (0-0.4) Sodium 136 L (137-145) mmol/L Potassium 5.2 H (3.5-5.1) mmol/L Chloride 103 (98-107) mmol/L Carbon Dioxide 21 L (22-30) mmol/L Anion Gap 17.9 H (5-15) MEQ/L BUN 25 H (7-17) mg/dL Creatinine 1.06 H (0.52-1.04) mg/dL Estimated GFR 52.9 ML/MIN Glucose 133 H (74-106) mg/dL Calcium 11.0 H (8.4-10.2) mg/dL Total Bilirubin 0.80 (0.2-1.3) mg/dL AST 38 H (14-36) U/L ALT 29 (0-35) U/L Alkaline Phosphatase 68 (38-126) U/L Troponin I < 0.012 (0.000-0.034) ng/mL Serum Total Protein 6.9 (6.3-8.2) g/dL Albumin 4.2 (3.5-5.0) g/dL Lipase 183 (23-300) U/L Urine Color MEMO (YELLOW) Urine Appearance CLOUDY (CLEAR) Urine pH 5.0 (5-6) Ur Specific [place] 1.023 (1.005-1.025) Urine Protein 30 (Negative) Urine Ketones TRACE (NEGATIVE) Urine Blood NEGATIVE (0-5) Jh/ul Urine Nitrite NEGATIVE (NEGATIVE) Urine Bilirubin NEGATIVE (NEGATIVE) Urine Urobilinogen NEGATIVE (0-1) mg/dL Ur Leukocyte Esterase MODERATE (NEGATIVE) Urine WBC (Auto) 16-25 (0-5) /HPF Urine RBC (Auto) 11-15 (0-2) /HPF U Hyaline Cast (Auto) 26-50 (0-2) /LPF U Epithel Cells (Auto) FEW (FEW) /HPF Urine Bacteria (Auto) FEW (NEGATIVE) /HPF U Non-Squamous Epi Cells RARE (FEW) /HPF Urine Mucus (Auto) SLIGHT (NEGATIVE) /HPF Urine Culture Reflexed YES (NO) Urine Glucose NEGATIVE (NEGATIVE) mg/dL Slides for Path Review - Progress Progress: improved Will see patient in: hospital (observation) Counseled pt/family regarding: lab results, diagnosis - Departure Departure Disposition: Observation Clinical Impression: Cholecystitis Condition: Stable Critical Care Time: No Referrals: ELAINE NICOLE MD [Primary Care Provider] -
[2019-04-14] MEDS ORDERED: Sodium Chloride 0.9% 1000 ML 0 ML ONE (13:13)
[2019-04-14] MEDS ORDERED: Sodium Chloride 0.9% 1000 ML 1,000 ML IV SCH (13:15)
[2019-04-14] MEDS ORDERED: Sodium Chloride 0.9% 1000 ML 1,000 ML ONE (13:22)
[2019-04-14 13:31] LABS: BASOPHIL % 0.2 % (0.0-0.4); Basophil (Absolute #) 0.02 (0-0.4); Eosinophil (Absolute #) 0.09 (0-0.5); Granulocyte Absolute (ANC) 6.08 (1.4-6.9); Lymphocyte (Absolute #) 1.97 (1.0-4.6); Mean Cell Volume 92.3 fl (78-100); Mean Corpuscular Hemoglobin 29.9 pg (26-32); Mean Corpuscular Hgb Concent. 32.4 g/dl (32-36); Mean Platelet Volume 12.9 fl (6-9.5); Monocyte (Absolute #) 0.79 (0.0-1.3); Monocytes % 8.8 % (0.0-12.0); Platelet Count 168 K/mm3 (150-450); Red Blood Count 4.01 M/mm3 (4.1-5.4); Red Cell Distribution Width 15.1 % (11.5-14.0)
[2019-04-14 13:37] LABS: Appearance CLOUDY (CLEAR); Bacteria FEW /HPF (NEGATIVE); Bilirubin NEGATIVE (NEGATIVE); Blood NEGATIVE Ery/ul (0-5); Epithelial Cells FEW /HPF (FEW); Glucose NEGATIVE (NEGATIVE); Hyaline Casts 26-50 /LPF (0-2); Ketones TRACE (NEGATIVE); Leukocyte Esterase MODERATE (NEGATIVE); Mucus SLIGHT /HPF (NEGATIVE); Nitrite NEGATIVE (NEGATIVE); Non-Squamous Epithelial Cells RARE /HPF (FEW); Protein,Urine Dip 30 (Negative); Specific Gravity 1.023 (1.005-1.025); Urobilinogen NEGATIVE mg/dL (0-1)
--- NOTE | 2019-04-14 13:44 | XRAY ---
Indication: Malaise. Comparison: Outside exam from [facility] dated April 30, 2018. Portable chest demonstrates stable right upper lobe fibrosis/scarring. No focal infiltrate, consolidation, or large effusion. Heart is not enlarged for AP portable technique. Bony thorax intact again with mild degenerative changes. Impression: Stable nonacute chest with chronic features.
[2019-04-14 13:47] LABS: ALBUMIN 4.2 g/dL (3.5-5.0); ALKALINE PHOSPHATASE 68 U/L (38-126); ANION GAP 17.9 MEQ/L (5-15); BLOOD UREA NITROGEN 25 mg/dL (7-17); CHLORIDE 103 mmol/L (98-107); Carbon Dioxide 21 mmol/L (22-30); Creatinine 1 1.06 mg/dL (0.52-1.04); Glucose 133 mg/dL (74-106); LIPASE 183 U/L (23-300); Potassium 5.2 mmol/L (3.5-5.1); SGOT/AST 38 U/L (14-36); SGPT/ALT 29 U/L (0-35); SODIUM 136 mmol/L (137-145); Total Protein 6.9 g/dL (6.3-8.2)
[2019-04-14 13:53] LABS: TROPONIN < 0.012 ng/mL (0.000-0.034)
--- NOTE | 2019-04-14 15:12 | XRAY ---
Indication: Confusion. Near syncope. Multiple contiguous axial images obtained through the head without contrast. Comparison: May 20, 2017. Stable age-appropriate global atrophy and mild/moderate periventricular degenerative micro-ischemia bilaterally. No acute intracranial hemorrhage, abnormal extra-axial fluid collection, or mass effect. Fourth ventricle is midline without hydrocephalus. Bony calvarium intact. Visualized paranasal sinuses and mastoid air cells are essentially clear. Impression: Stable nonacute senile brain. CT DI 69.11
--- NOTE | 2019-04-14 15:29 | XRAY ---
Indication: Upper abdomen pain. Confusion. Near syncope. Multiple contiguous axial images obtained through the abdomen and pelvis without contrast as ordered. Comparison: May 20, 2017. Lung bases again demonstrates scattered atelectasis/scarring with new tiny effusions. Stable 5 mm right middle lobe noncalcified nodule favored to be benign given stability over the years. Heart is not enlarged. Stable small hiatal hernia. Noncontrasted stomach and bowel loops appear nonobstructed. Again right hemicolectomy with intact anastomosis. Patient reports appendectomy and hysterectomy. New abnormally distended gallbladder without gallstones. Also new pericholecystic fluid, small perihepatic fluid, and biliary distention concerning for acalculous cholecystitis. Also new small pelvic free fluid presumed related. No walled off fluid collection or free air. Stable calcified splenic granulomas. Liver is now enlarged measuring 21 cm in CC dimension. Remaining liver, pancreas, adrenal glands, kidneys, ureters, and bladder appear unremarkable for noncontrast exam. Mild scattered aortoiliac calcifications without AAA. Osseous structures intact with osteopenia and mild degenerative changes throughout the thoracolumbar spine and both hips. Impression: 1. New finding for abnormally distended gallbladder with pericholecystic fluid and biliary distention. No gallstones. Rule out acalculous cholecystitis. Gallbladder sonogram may yield further information. Small perihepatic and pelvic free fluid may be related. 2. New hepatomegaly and tiny bibasilar effusions. 3. Stable small hiatal hernia, right hemicolectomy with intact anastomosis, and benign right middle lobe noncalcified micronodule. CT DI 23.87
[2019-04-14] MEDS ORDERED: MAXIPIME 1 GM IV SCH (16:00)
[2019-04-14] MEDS ORDERED: MORPHINE SULFATE 2 MG INJ IV PRN (16:28)
[2019-04-14] MEDS ORDERED: xanAX 0.25 MG PO PRN (17:00)
[2019-04-14] MEDS: FLAGYL 500 MG IVPB 500 MG/100 ML BAG IV SCH (17:13)
[2019-04-14] MEDS: Sodium Chloride 0.9% W/ 20 mEq KCl/LITER 1,000 ML IV SCH (17:13)
[2019-04-14] MEDS: MAXIPIME 1 GM** 1 G in Sodium Chloride 100ML MINI-BAG PLUS 100 ML IV SCH (18:05)
[2019-04-14] MEDS ORDERED: Trandate 100 MG ONE (19:27)
[2019-04-14] MEDS: Trandate 100 MG PO SCH (19:29)
[2019-04-14] MEDS ORDERED: NON-FORMULARY ITEM (Ranitidine Hcl [Zantac] 300 MG) PO SCH (22:00)
[2019-04-14] MEDS: Pepcid 20 MG PO SCH (22:01)
[2019-04-15] MEDS: FLAGYL 500 MG IVPB 500 MG/100 ML BAG IV SCH ×3 (00:29→17:08)
[2019-04-15] MEDS: Sodium Chloride 0.9% W/ 20 mEq KCl/LITER 1,000 ML IV SCH (05:37)
[2019-04-15 06:04] LABS: BASOPHIL % 0.4 % (0.0-0.4); Basophil (Absolute #) 0.02 (0-0.4); Eosinophil (Absolute #) 0.11 (0-0.5); Granulocyte Absolute (ANC) 2.44 (1.4-6.9); Granulocytes % 44.3 % (36.0-66.0); Hematocrit 33.3 % (35-47); Hemoglobin 10.6 gm/dl (12.0-16.0); Lymphocyte (Absolute #) 2.26 (1.0-4.6); Lymphocytes % 41.1 % (24.0-44.0); Mean Corpuscular Hgb Concent. 31.8 g/dl (32-36); Mean Platelet Volume 11.7 fl (6-9.5); Monocyte (Absolute #) 0.67 (0.0-1.3); Monocytes % 12.2 % (0.0-12.0); Platelet Count 156 K/mm3 (150-450); Red Blood Count 3.62 M/mm3 (4.1-5.4); Red Cell Distribution Width 15.1 % (11.5-14.0); White Blood Count 5.5 K/mm3 (4.0-10.5)
[2019-04-15] MEDS: MAXIPIME 1 GM** 1 G in Sodium Chloride 100ML MINI-BAG PLUS 100 ML IV SCH ×2 (06:05→18:58)
[2019-04-15 06:26] LABS: Mean Corpuscular Hemoglobin 29.2 pg (26-32)
[2019-04-15] MEDS: Trandate 100 MG PO SCH ×2 (09:38→22:08)
[2019-04-15] MEDS: Zestril 10 MG PO SCH (09:38)
[2019-04-15] MEDS ORDERED: NORVASC 5 MG PO SCH (10:00)
[2019-04-15] MEDS: TYLENOL 325 MG PO PRN (19:00)
--- NOTE | 2019-04-15 20:11 | XRAY ---
Indication: Abnormal gallbladder on recent CT. Two-dimensional gallbladder sonogram performed. Comparison: No Gallbladder normally distended without gallstones. Gallbladder wall thickness is 2.4 mm with tiny pericholecystic fluid, possible acalculous cholecystitis. Common bile duct measures 2.9 mm. No intrahepatic biliary distention. Remaining visualized portions of the liver, pancreas and right kidney appear sonographically unremarkable. Right kidney measures 10.8 cm in length. Impression: Borderline gallbladder wall thickening with tiny pericholecystic fluid. Rule out acalculous cholecystitis.
[2019-04-15] MEDS: Dextrose 5% -0.45 NaCl 1000 ML 1,000 ML IV SCH (20:15)
[2019-04-15] MEDS: Pepcid 20 MG PO SCH (22:08)
[2019-04-15] MEDS: NORVASC 5 MG PO SCH (22:11)
[2019-04-16] MEDS: FLAGYL 500 MG IVPB 500 MG/100 ML BAG IV SCH ×4 (01:03→23:53)
[2019-04-16] MEDS: Dextrose 5% -0.45 NaCl 1000 ML 1,000 ML IV SCH ×3 (04:46→22:19)
[2019-04-16] MEDS: MAXIPIME 1 GM** 1 G in Sodium Chloride 100ML MINI-BAG PLUS 100 ML IV SCH ×2 (05:03→18:44)
[2019-04-16 07:30] LABS: Hematocrit 37.2 % (35-47); Mean Cell Volume 91.4 fl (78-100); Mean Corpuscular Hgb Concent. 32.3 g/dl (32-36); Mean Platelet Volume 12.1 fl (6-9.5); Platelet Count 169 K/mm3 (150-450); Red Blood Count 4.07 M/mm3 (4.1-5.4); Red Cell Distribution Width 14.9 % (11.5-14.0); White Blood Count 6.3 K/mm3 (4.0-10.5)
[2019-04-16 07:31] LABS: Mean Corpuscular Hemoglobin 29.4 pg (26-32)
[2019-04-16 07:41] LABS: ALBUMIN 3.5 g/dL (3.5-5.0); ALKALINE PHOSPHATASE 70 U/L (38-126); ANION GAP 11.8 MEQ/L (5-15); BLOOD UREA NITROGEN 9 mg/dL (7-17); CHLORIDE 110 mmol/L (98-107); Calcium 9.6 mg/dL (8.4-10.2); Carbon Dioxide 24 mmol/L (22-30); Creatinine 1 0.75 mg/dL (0.52-1.04); Glucose 110 mg/dL (74-106); SGOT/AST 25 U/L (14-36); SGPT/ALT 23 U/L (0-35); SODIUM 142 mmol/L (137-145); Total Protein 6.2 g/dL (6.3-8.2)
[2019-04-16 09:35] LABS: Slide Review YES
[2019-04-16] MEDS: Trandate 100 MG PO SCH ×2 (10:36→21:31)
[2019-04-16] MEDS: Zestril 10 MG PO SCH (10:36)
[2019-04-16] MEDS: NORVASC 5 MG PO SCH (21:30)
[2019-04-16] MEDS: Pepcid 20 MG PO SCH (21:30)
[2019-04-16] MEDS: TYLENOL 325 MG PO PRN (22:17)
[2019-04-17] MEDS: MAXIPIME 1 GM** 1 G in Sodium Chloride 100ML MINI-BAG PLUS 100 ML IV SCH (05:00)
[2019-04-17 05:57] LABS: Hematocrit 35.3 % (35-47); Hemoglobin 11.3 gm/dl (12.0-16.0); Mean Cell Volume 91.5 fl (78-100); Platelet Count 154 K/mm3 (150-450); Red Blood Count 3.86 M/mm3 (4.1-5.4); Red Cell Distribution Width 14.9 % (11.5-14.0); White Blood Count 5.4 K/mm3 (4.0-10.5)
[2019-04-17 06:03] LABS: Mean Corpuscular Hemoglobin 29.2 pg (26-32)
[2019-04-17 06:16] LABS: ALBUMIN 3.2 g/dL (3.5-5.0); ALKALINE PHOSPHATASE 65 U/L (38-126); ANION GAP 9.7 MEQ/L (5-15); BLOOD UREA NITROGEN 6 mg/dL (7-17); CHLORIDE 111 mmol/L (98-107); Calcium 9.6 mg/dL (8.4-10.2); Carbon Dioxide 26 mmol/L (22-30); Creatinine 1 0.76 mg/dL (0.52-1.04); Glucose 89 mg/dL (74-106); Potassium 3.6 mmol/L (3.5-5.1); SGOT/AST 22 U/L (14-36); SGPT/ALT 23 U/L (0-35); SODIUM 143 mmol/L (137-145); Total Protein 5.7 g/dL (6.3-8.2)
[2019-04-17 06:41] LABS: Slide Review YES
[2019-04-17] MEDS: FLAGYL 500 MG IVPB 500 MG/100 ML BAG IV SCH (07:57)
--- NOTE | 2019-04-17 09:03 | PCM.NOTE ---
Date and Time: 04/17/19 0856 Subjective Assessment: She is having some bilateral lower abdominal pain this morning but states she's had chronic abd pain since her hemicolectomy approx 1 year ago. She did have a large normal BM this morning. Tolerated regular diet yesterday. Currently NPO for HIDA scan. - Review of Systems Constitutional: No Fever Abdominal/Gastrointestinal: No Vomiting Objective Exam General Appearance: no apparent distress, alert Neurologic Exam: cooperative, normal mood/affect Skin Exam: normal color, warm, dry, No rash Respiratory Exam: normal breath sounds, lungs clear, No crackles/rales, No rhonchi, No wheezing Cardiovascular Exam: regular rate/rhythm, normal heart sounds, No murmur Gastrointestinal/Abdomen Exam: soft, tenderness (diffuse, mild), No normal bowel sounds (slightly high pitched), No distention, No mass, No guarding, No rebound Extremity Exam: swelling (trace LE edema on R, none on L) Back Exam: normal inspection, No rash OBJECTIVE DATA Vital Signs: Vital Signs - 24 hr Temp Pulse Resp BP Pulse Ox 04/17/19 07:53 98.2 F 67 18 167/78 97 04/17/19 04:00 97.9 F 63 18 150/71 96 04/16/19 23:39 98.3 F 64 20 128/63 98 04/16/19 20:33 98.5 F 63 18 159/74 96 04/16/19 16:54 98.2 F 64 20 129/60 96 04/16/19 13:00 98.2 F 62 20 136/65 96 Pain Assessment - Last Documented Pain Intensity 1 Pain Scale Used 0-10 Pain Scale Intake and Output: Intake & Output 04/14/19 04/15/19 04/16/19 04/17/19 11:59 11:59 11:59 11:59 Intake Total 1159 3178 3381 Output Total 1600 2150 2225 Balance -441 1028 1156 Weight 64.5 kg Lab Results: Lab Results-Last 24 Hours 04/16/19 04/17/19 04/17/19 Range/Units 06:45 05:25 05:25 WBC 5.4 (4.0-10.5) K/mm3 RBC 3.86 L (4.1-5.4) M/mm3 Hgb 11.3 L (12.0-16.0) gm/dl Hct 35.3 (35-47) % MCV 91.5 (78-100) fl MCH 29.2 (26-32) pg MCHC 32.0 (32-36) g/dl RDW 14.9 H (11.5-14.0) % Plt Count 154 (150-450) K/mm3 MPV 12.0 H (6-9.5) fl Sodium 143 (137-145) mmol/L Potassium 3.6 (3.5-5.1) mmol/L Chloride 111 H (98-107) mmol/L Carbon Dioxide 26 (22-30) mmol/L Anion Gap 9.7 (5-15) MEQ/L BUN 6 L (7-17) mg/dL Creatinine 0.76 (0.52-1.04) mg/dL Estimated GFR > 60.0 ML/MIN Glucose 89 (74-106) mg/dL Calcium 9.6 (8.4-10.2) mg/dL Total Bilirubin 0.70 (0.2-1.3) mg/dL AST 22 (14-36) U/L ALT 23 (0-35) U/L Alkaline Phosphatase 65 (38-126) U/L Serum Total Protein 5.7 L (6.3-8.2) g/dL Albumin 3.2 L (3.5-5.0) g/dL Slides for Path Review YES YES Radiology Exams: Radiology Procedures Category Date Time Status GALLBLADDER [US] Stat Exams 04/15/19 09:43 Completed HIDA-GALL BLADDER [NUCMED] Routine Exams 04/17/19 08:00 Ordered Assessment/Plan (1) Cholecystitis Current Visit: Yes Status: Acute Assessment & Plan: On day #4 of flagyl and cefepime. She will have HIDA scan today and will let surgeon know the results. Code(s): K81.9 - CHOLECYSTITIS, UNSPECIFIED (2) HTN (hypertension) Current Visit: Yes Status: Acute Qualifiers: Hypertension type: essential hypertension Qualified Code(s): I10 - Essential (primary) hypertension Code(s): I10 - ESSENTIAL (PRIMARY) HYPERTENSION
[2019-04-17] MEDS ORDERED: Zestril 10 MG PO SCH (09:07)
[2019-04-17] MEDS ORDERED: APRESOLINE 20 MG/ML INJ IV PRN (09:09)
[2019-04-17] MEDS: Dextrose 5% -0.45 NaCl 1000 ML 1,000 ML IV SCH ×3 (09:53→09:54)
--- NOTE | 2019-04-17 10:59 | CONS ---
CONSULT DATE: 04/15/2019 HISTORY: An 79 year-old female who was admitted a day or two ago with some problems with walking, weakness of her legs. She had some vague abdominal pain but she has denied any current abdominal pain. She said she is mainly here for weakness and her legs going out. She relates she gets some pain when she takes Zantac. PAST MEDICAL HISTORY: Chronic obstructive pulmonary disease. Hypertension. Cataracts. Anxiety. PAST SURGICAL HISTORY: Appendectomy. Hernia repair. Hysterectomy. She had some sort of colon resection back [place] [address] Pelayo. She had a colonoscopy, endoscopy and dilatation in the past. She had polypectomy in the past. MEDICATIONS: Zantac, Xanax, Norvasc, Zestril. ALLERGIES: IODINE. PENICILLIN. CEPHALEXIN. LATEX. LEVAQUIN. BACTRIM. FAMILY HISTORY: Negative in regards to this problem. SOCIAL HISTORY: No smoking or alcohol abuse. REVIEW OF SYSTEMS: Fourteen systems reviewed. Sitting up in a chair. She denies any abdominal pain, denies any nausea or vomiting. LAB DATA AND TESTS: White count 5.5, hemoglobin 10.6. Liver function test fairly unremarkable. Total bilirubin 0.8, alkaline phosphatase 68, AST 29, ALT 38. CT scan showed a little bit distension of the gallbladder, maybe some pericholecystic fluid. Ultrasound was actually done but we were unable to get the report. She had a little fluid reportedly. I did not see the ultrasound but there is no radiologist to read the study. PHYSICAL EXAMINATION: Afebrile. Vital signs stable. GENERAL: No acute distress. Up in a chair. HEENT: Sclera nonicteric. Wearing glasses. NECK: No JVD. CHEST: Equal excursion, nonlabored breathing. CVS: Regular rate and rhythm. ABDOMEN: Soft. She is a little bit overweight. She has a midline incision from laparotomy in the past. She is currently nontender. No rebound. No guarding. EXTREMITIES: No cyanosis. NEURO: Alert, moving extremities grossly symmetrically. IMPRESSION: An 79 year-old who had some vague abdominal ache. She relates it more to taking her Zantac. She had ultrasound that did not show any stones. It showed a little bit distension, a little bit of pericholecystic fluid but currently she denied any abdominal pain whatsoever. The fact that she does not have any stones and she does not have any pain or symptoms currently I do not feel that she needs emergent surgery right at this moment. Could try advancing her diet as the main reason she had been having some weakness of her legs and knees. Will advance her diet as tolerated. She will be released and then consider doing an outpatient HIDA scan for further evaluation. Otherwise continue medical management. Again, her liver enzymes were okay, nontoxic and normal white count. No emergent surgery necessary. Continue medical management. She denied any pain at this time. When she is released consider outpatient HIDA scan. Thank you for the consult.
[2019-04-17] MEDS: Trandate 100 MG PO SCH (11:03)
[2019-04-17 15:44] VITALS: BP 165/70; PULSE 69; O2SAT 96
--- NOTE | 2019-04-17 15:51 | PCM.DS ---
Discharge Summary Date of Admission: 04/15/19 08:45 Admitting Physician: MARY KATE MELENDEZ Consults: Consults on Case 04/15/19 08:12 Consult Surgery ROUTINE Primary Care Provider: ELAINE NICOLE Allergies Allergies iodine Allergy (Unknown, Verified 04/14/19 12:43) Penicillins Allergy (Unknown, Verified 04/14/19 12:43) Nausea cephalexin [From Keflex] Allergy (Verified 04/14/19 12:43) Nausea latex Allergy (Verified 04/14/19 12:43) levofloxacin [From Levaquin] Allergy (Verified 04/14/19 12:43) Stomach Cramps sulfamethoxazole [From Bactrim] Allergy (Verified 04/14/19 12:43) trimethoprim [From Bactrim] Allergy (Verified 04/14/19 12:43) Stomach Pain Hospital Summary - Hospital Course Hospital Course: Pt is an 79 yo female pt of Dr. Nicole with HTN who was admitted through ER with cholecystitis per CT result. She had an u/s gallbladder which showed pericolic fluid, as in CT scan, but otherwise negative. Jordan was consulted and was planning to do possible cholecystectomy after HIDA; she was scheduled for HIDA scan this morning but there were technical difficulties wiht the machine so it will not be done today. Surgery was ok with discharging the pt to home and following up with outpatient surgery. She was feeling well today, no distinct abdominal pain, had tolerated a regular diet last night, and had a regular BM this morning. Will send pt home on flagyl (she was treated in hospital with cefepime and flagyl x 4d) for 3d. She needs to f/u with Dr. Nicole this week. - Vitals & Intake/Output Vital Signs: Vital Signs Temperature 98.4 F 04/17/19 15:44 Pulse Rate 69 04/17/19 15:44 Respiratory Rate 20 04/17/19 15:44 Blood Pressure 165/70 04/17/19 15:44 O2 Sat by Pulse Oximetry 96 04/17/19 15:44 Intake & Output: Intake & Output 04/15/19 04/16/19 04/17/19 04/18/19 11:59 11:59 11:59 11:59 Intake Total 1159 3178 3381 Output Total 1600 2150 2225 Balance -441 1028 1156 Weight 64.5 kg - Lab Result Diagrams: 04/17/19 05:25 04/17/19 05:25 Lab Results-Last 24 Hrs: Lab Results-Last 24 Hours 04/17/19 04/17/19 Range/Units 05:25 05:25 WBC 5.4 (4.0-10.5) K/mm3 RBC 3.86 L (4.1-5.4) M/mm3 Hgb 11.3 L (12.0-16.0) gm/dl Hct 35.3 (35-47) % MCV 91.5 (78-100) fl MCH 29.2 (26-32) pg MCHC 32.0 (32-36) g/dl RDW 14.9 H (11.5-14.0) % Plt Count 154 (150-450) K/mm3 MPV 12.0 H (6-9.5) fl Sodium 143 (137-145) mmol/L Potassium 3.6 (3.5-5.1) mmol/L Chloride 111 H (98-107) mmol/L Carbon Dioxide 26 (22-30) mmol/L Anion Gap 9.7 (5-15) MEQ/L BUN 6 L (7-17) mg/dL Creatinine 0.76 (0.52-1.04) mg/dL Estimated GFR > 60.0 ML/MIN Glucose 89 (74-106) mg/dL Calcium 9.6 (8.4-10.2) mg/dL Total Bilirubin 0.70 (0.2-1.3) mg/dL AST 22 (14-36) U/L ALT 23 (0-35) U/L Alkaline Phosphatase 65 (38-126) U/L Serum Total Protein 5.7 L (6.3-8.2) g/dL Albumin 3.2 L (3.5-5.0) g/dL Slides for Path Review YES Micro Results-Entire Visit: Microbiology 04/14/19 13:19 Urine Culture - Final Clean Catch Midstream <10K NORMAL SKIN KENNETH PROBABLE SKIN CONTAMINANT Discharge Exam General Appearance: no apparent distress, alert, other (exam done this morning) Neurologic Exam: cooperative, normal mood/affect Eye Exam: eyes nml inspection Ears, Nose, Throat Exam: moist mucous membranes Neck Exam: normal inspection Respiratory Exam: normal breath sounds, lungs clear, No crackles/rales, No rhonchi, No wheezing Cardiovascular Exam: regular rate/rhythm, normal heart sounds, No murmur Gastrointestinal/Abdomen Exam: soft, tenderness (diffuse lower abdomen, mild), No normal bowel sounds (slightly high pitched), No distention, No mass, No guarding, No rebound Back Exam: normal inspection, No rash Extremity Exam: swelling (trace) Skin Exam: normal color, warm, dry, No rash Final Diagnosis/Problem List - Final Discharge Diagnosis/Problem (1) Cholecystitis Current Visit: Yes Status: Acute Assessment & Plan: Will d/c home to finish 3more d of flagyl po. F/u with Dr. Nicole this week. F/u with surgery as scheduled. Code(s): K81.9 - CHOLECYSTITIS, UNSPECIFIED (2) HTN (hypertension) Current Visit: Yes Status: Acute Assessment & Plan: I increased her lisinopril from 10mg to 20mg daily. Code(s): I10 - ESSENTIAL (PRIMARY) HYPERTENSION - Discharge Disposition: Home, Self-Care Condition: Stable Prescriptions: New Metronidazole [Flagyl] 500 mg PO TID #9 tablet Lisinopril 10 mg [Zestril 10 MG] 20 mg PO DAILY #15 tablet Continue raNITIdine HCl [Zantac] 300 mg PO HS Alprazolam 0.25 mg [xanAX 0.25 MG] 0.25 mg PO BID PRN Labetalol HCl 100 mg [Trandate 100 MG] 100 mg PO BID #60 tablet Amlodipine Besylate 5 mg [Norvasc 5 mg] 5 mg PO DAILY Discontinued Lisinopril 10 mg [Zestril 10 MG] 10 mg PO DAILY Instructions: Cholecystectomy, Laparoscopic Surgery, Gallstones (DC) Follow up with: DEVIKA GREEN [COURTESY STAFF] - 04/24/19 9:00 am ([place] Office ) ELAINE NICOLE MD [Primary Care Provider] - 04/26/19 9:45 am ([place] office)
[2019-04-17] MEDS: TYLENOL 325 MG PO PRN (16:45)
== END 2019-04-17 17:53 | disposition home or self-care (01) | DRG 446 ==
LOC: ED 12:16 → MED SURG 16:24 → OBSVTOIN 04-15 08:45
PROVIDERS: ADMIT Family Medicine; ATTEND General Practice
DX: K81.9 Cholecystitis, unspecified (principal); R42 Dizziness and giddiness; I10 Essential (primary) hypertension; R53.1 Weakness; J44.9 Chronic obstructive pulmonary disease, unspecified; Z79.899 Other long term (current) drug therapy
CPT/HCPCS: 36000; 36415; 70450; 71045; 74176; 76705; 80053; 81001; 83690; 84484; 85025; 85027; 87086; 93005; 96360; 99285; G0378; J0360; J0692; A9270-GY

== ENCOUNTER 2019-12-23 10:44 | Emergency (ER) | payer MEDICARE, OTHER ==
[2019-12-23] MEDS ORDERED: Sodium Chloride 0.9% 1000 ML 1,000 ML IV STA (11:04)
[2019-12-23] MEDS ORDERED: Sodium Chloride 0.9% 1000 ML 1,000 ML ONE (11:10)
[2019-12-23 11:13] LABS: Absolute Neutrophil Ct (ANC) 9.54 (1.4-6.9); BASOPHIL % 0.2 % (0.0-0.4); Basophil (Absolute #) 0.02 (0-0.4); Eosinophil % 0.6 % (0.00-5.0); Eosinophil (Absolute #) 0.07 (0-0.5); Hematocrit 42.9 % (35-47); Hemoglobin 14.5 gm/dl (12.0-16.0); Lymphocyte (Absolute #) 1.93 (1.0-4.6); Lymphocytes % 15.4 % (24.0-44.0); Mean Cell Volume 89.7 fl (78-100); Mean Corpuscular Hemoglobin 30.3 pg (26-32); Mean Corpuscular Hgb Concent. 33.8 g/dl (32-36); Mean Platelet Volume 12.1 fl (7.5-11.0); Monocyte (Absolute #) 0.95 (0.0-1.3); Monocytes % 7.6 % (0.0-12.0); Neutrophil % 76.2 % (36.0-66.0); Platelet Count 211 K/mm3 (150-450); Red Blood Count 4.78 M/mm3 (4.1-5.4); Red Cell Distribution Width 13.9 % (11.5-14.0); White Blood Count 12.5 K/mm3 (4.0-10.5)
[2019-12-23 11:19] LABS: Appearance CLOUDY (CLEAR); Bacteria MODERATE /HPF (NEGATIVE); Bilirubin NEGATIVE (NEGATIVE); Blood LARGE Ery/ul (0-5); Epithelial Cells RARE /HPF (FEW); Glucose NEGATIVE (NEGATIVE); Ketones NEGATIVE (NEGATIVE); Leukocyte Esterase SMALL (NEGATIVE); Mucus SLIGHT /HPF (NEGATIVE); Nitrite NEGATIVE (NEGATIVE); Protein,Urine Dip 100 (Negative); RBC >101 /HPF (0-2); Specific Gravity 1.005 (1.005-1.025); Urobilinogen NEGATIVE mg/dL (0-1); WBC 51-100 /HPF (0-5)
--- NOTE | 2019-12-23 11:27 | ERPHSYRPT ---
- History of Present Illness Time Seen by Provider: 12/23/19 11:25 Historian: patient Exam Limitations: no limitations Patient Subjective Stated Complaint: pt comes in with c/o flank pain and burning with urination. pt states that this morning her urine appeared to have blood in it. pt rates pain a 0/10 at this time. pt provided urine sample, pt urine appeared red in color. pt denies hx of kidney stones. pt states that her flank pain started a few days ago. pt states burning and urgency and increased frequency with urination. pt denies abd pain with palpation. Triage Nursing Assessment: see above Physician History: patient comes in with c/o flank pain and burning with urination. pt states that this morning her urine appeared to have blood in it. pt rates pain a 0/10 at this time. pt states urine appeared red in color. pt denies hx of kidney stones. pt states that her flank pain started a few days ago. pt states burning and urgency and increased frequency with urination. Timing/Duration: today Activities at Onset: none Quality: dullness Abdominal Pain Onset Location: flank (right flank) Pain Radiation: back Severity of Pain-Max: moderate Severity of Pain-Current: moderate Modifying Factors: Improves With: nothing Associated Symptoms: denies symptoms Allergies/Adverse Reactions: iodine Allergy (Unknown, Verified 12/23/19 11:09) Penicillins Allergy (Unknown, Verified 12/23/19 11:09) Nausea cephalexin [From Keflex] Allergy (Verified 12/23/19 11:09) Nausea latex Allergy (Verified 12/23/19 11:09) levofloxacin [From Levaquin] Allergy (Verified 12/23/19 11:09) Stomach Cramps sulfamethoxazole [From Bactrim] Allergy (Verified 12/23/19 11:09) trimethoprim [From Bactrim] Allergy (Verified 12/23/19 11:09) Stomach Pain Home Medications: Alprazolam 0.25 mg [xanAX 0.25 MG] 0.25 mg PO BID PRN 04/23/16 [History] Amlodipine Besylate 5 mg [Norvasc 5 mg] 5 mg PO DAILY 04/14/19 [History] Famotidine [Pepcid] 10 mg PO BID 12/23/19 [History] Hx Tetanus, Diphtheria Vaccination/Date Given: No Hx Influenza Vaccination/Date Given: Yes Hx Pneumococcal Vaccination/Date Given: No Immunizations Up to Date: Yes Travel Risk - International Travel Have you traveled outside of the country in past 3 weeks: No Have you or anyone close to you been diagnosed with or: No Do your reside in a community with a known COVID-19 case?: Yes If Yes where:: [place] - Coronavirus Screening Has patient experienced Coronavirus symptoms: No - Review of Systems Constitutional: No Fever, No Chills Eyes: No Symptoms Ears, Nose, & Throat: No Symptoms Respiratory: No Cough, No Dyspnea Cardiac: No Chest Pain, No Edema, No Syncope Abdominal/Gastrointestinal: No Abdominal Pain, No Nausea, No Vomiting, No Diarrhea Genitourinary Symptoms: Dysuria, Flank Pain Musculoskeletal: No Back Pain, No Neck Pain Skin: No Rash Neurological: No Dizziness, No Focal Weakness, No Sensory Changes Psychological: No Symptoms Endocrine: No Symptoms All Other Systems: Reviewed and Negative - Past Medical History Pertinent Past Medical History: Yes Neurological History: No Pertinent History ENT History: No Pertinent History Cardiac History: Hypertension Respiratory History: COPD Endocrine Medical History: No Pertinent History Musculoskeletal History: No Pertinent History GI Medical History: GERD, Hernia History: Other Psycho-Social History: Anxiety Female Reproductive Disorders: No Pertinent History Other Medical History: frequent UTI's, had TB twice- 1966 and 1969 - Past Surgical History Past Surgical History: Yes Neuro Surgical History: No Pertinent History Cardiac: No Pertinent History Respiratory: No Pertinent History Gastrointestinal: Appendectomy, Bowel Surgery, Colon Resection, Hernia Repair Genitourinary: No Pertinent History Musculoskeletal: No Pertinent History Female Surgical History: Hysterectomy Other Surgical History: september colon resection , "we were never told if it was cancer or not" "Dr Pelayo", Have had polypectomy since", states "throat stretched twice" - Social History Smoking Status: Never smoker Exposure to second hand smoke: No Alcohol Use: None Drug Use: none Patient Lives Alone: Yes Significant Family History: no pertinent family hx - Female History Hx Now: No - Nursing Vital Signs Nursing Vital Signs: Initial Vital Signs Temperature 97.9 F 12/23/19 10:45 Pulse Rate 83 12/23/19 10:45 Respiratory Rate 18 12/23/19 10:45 Blood Pressure 179/81 12/23/19 10:45 O2 Sat by Pulse Oximetry 98 12/23/19 10:45 Pain Scale Pain Intensity 0 - Physical Exam General Appearance: no apparent distress, alert Eye Exam: PERRL/EOMI, eyes nml inspection Ears, Nose, Throat Exam: normal ENT inspection, pharynx normal, moist mucous membranes Neck Exam: normal inspection, non-tender, supple, full range of motion Respiratory Exam: normal breath sounds, lungs clear, No respiratory distress Cardiovascular Exam: regular rate/rhythm, normal heart sounds Gastrointestinal/Abdomen Exam: soft, No tenderness, No mass Back Exam: normal inspection, normal range of motion, No CVA tenderness, No vertebral tenderness Extremity Exam: normal inspection, normal range of motion, pelvis stable Neurologic Exam: alert, oriented x 3, cooperative, normal mood/affect, nml cerebellar function, sensation nml, No motor deficits Skin Exam: normal color, warm, dry SpO2: 98 - Course Nursing assessment & vital signs reviewed: Yes EKG Interpreted by Me: Sinus Rhythm, Right Bundle Branch Block - CT Exams Abdomen/Pelvis CT Interpretation: Tele-radiologist Report (no acute abnormalities, no renal stone) Ordered Tests: Active Orders 24 hr Category Date Time Status EKG-ER Only STAT Care 12/23/19 11:04 Active IV Insertion STAT Care 12/23/19 11:01 Active ABDOMEN AND PELVIS W/0 CONTRAS [CT] Stat Exams 12/23/19 11:05 Taken AMYLASE Stat Lab 12/23/19 11:13 Completed CBC W DIFF Stat Lab 12/23/19 11:13 Completed CMP Stat Lab 12/23/19 11:13 Completed CULTURE,URINE Stat Lab 12/23/19 11:13 Received LIPASE Stat Lab 12/23/19 11:13 Completed Lactic Acid Stat Lab 12/23/19 11:04 Completed UA W/RFX UR CULTURE Stat Lab 12/23/19 11:13 Completed Medication Summary Discontinued Medications Generic Name Dose Route Start Last Admin Trade Name Freq PRN Reason Stop Dose Admin Sodium Chloride 1,000 mls @ 999 mls/hr 12/23/19 11:04 12/23/19 11:12 Sodium Chloride 0.9% 1000 Ml IV 12/23/19 12:04 999 mls/hr .Q1H1M STA Administration Sodium Chloride Confirm 12/23/19 11:10 Sodium Chloride 0.9% 1000 Ml Administered 12/23/19 11:11 Dose 1,000 mls @ ud .ROUTE .STK-MED ONE Lab/Rad Data: Laboratory Result Diagrams 12/23/19 11:13 12/23/19 11:13 Laboratory Results 12/23/19 12/23/19 12/23/19 Range/Units 11:13 11:13 11:13 WBC 12.5 H (4.0-10.5) K/mm3 RBC 4.78 (4.1-5.4) M/mm3 Hgb 14.5 (12.0-16.0) gm/dl Hct 42.9 (35-47) % MCV 89.7 (78-100) fl MCH 30.3 (26-32) pg MCHC 33.8 (32-36) g/dl RDW 13.9 (11.5-14.0) % Plt Count 211 (150-450) K/mm3 MPV 12.1 H (7.5-11.0) fl Gran % 76.2 H (36.0-66.0) % Eos # (Auto) 0.07 (0-0.5) Absolute Lymphs (auto) 1.93 (1.0-4.6) Absolute Monos (auto) 0.95 (0.0-1.3) Lymphocytes % 15.4 L (24.0-44.0) % Monocytes % 7.6 (0.0-12.0) % Eosinophils % 0.6 (0.00-5.0) % Basophils % 0.2 (0.0-0.4) % Absolute Granulocytes 9.54 H (1.4-6.9) Basophils # 0.02 (0-0.4) Sodium 132 L (137-145) mmol/L Potassium 5.0 (3.5-5.1) mmol/L Chloride 97 L (98-107) mmol/L Carbon Dioxide 24 (22-30) mmol/L Anion Gap 16.2 H (5-15) MEQ/L BUN 18 H (7-17) mg/dL Creatinine 0.93 (0.52-1.04) mg/dL Estimated GFR > 60.0 ML/MIN Glucose 105 (74-106) mg/dL Lactic Acid (0.4-2.0) Calcium 10.8 H (8.4-10.2) mg/dL Total Bilirubin 1.30 (0.2-1.3) mg/dL AST 30 (14-36) U/L ALT 23 (0-35) U/L Alkaline Phosphatase 98 (38-126) U/L Serum Total Protein 7.8 (6.3-8.2) g/dL Albumin 4.7 (3.5-5.0) g/dL Amylase 137 H (30-110) U/L Lipase 265 (23-300) U/L Urine Color RED (YELLOW) Urine Appearance CLOUDY (CLEAR) Urine pH 6.0 (5-6) Ur Specific [place] 1.005 (1.005-1.025) Urine Protein 100 (Negative) Urine Ketones NEGATIVE (NEGATIVE) Urine Blood LARGE (0-5) Jh/ul Urine Nitrite NEGATIVE (NEGATIVE) Urine Bilirubin NEGATIVE (NEGATIVE) Urine Urobilinogen NEGATIVE (0-1) mg/dL Ur Leukocyte Esterase SMALL (NEGATIVE) Urine WBC (Auto) 51-100 (0-5) /HPF Urine RBC (Auto) >101 (0-2) /HPF U Epithel Cells (Auto) RARE (FEW) /HPF Urine Bacteria (Auto) MODERATE (NEGATIVE) /HPF Urine Mucus (Auto) SLIGHT (NEGATIVE) /HPF Urine Culture Reflexed ORDERED SEPARATELY (NO) Urine Glucose NEGATIVE (NEGATIVE) mg/dL Slides for Path Review YES 12/23/19 Range/Units 11:04 WBC (4.0-10.5) K/mm3 RBC (4.1-5.4) M/mm3 Hgb (12.0-16.0) gm/dl Hct (35-47) % MCV (78-100) fl MCH (26-32) pg MCHC (32-36) g/dl RDW (11.5-14.0) % Plt Count (150-450) K/mm3 MPV (7.5-11.0) fl Gran % (36.0-66.0) % Eos # (Auto) (0-0.5) Absolute Lymphs (auto) (1.0-4.6) Absolute Monos (auto) (0.0-1.3) Lymphocytes % (24.0-44.0) % Monocytes % (0.0-12.0) % Eosinophils % (0.00-5.0) % Basophils % (0.0-0.4) % Absolute Granulocytes (1.4-6.9) Basophils # (0-0.4) Sodium (137-145) mmol/L Potassium (3.5-5.1) mmol/L Chloride (98-107) mmol/L Carbon Dioxide (22-30) mmol/L Anion Gap (5-15) MEQ/L BUN (7-17) mg/dL Creatinine (0.52-1.04) mg/dL Estimated GFR ML/MIN Glucose (74-106) mg/dL Lactic Acid 1.3 (0.4-2.0) Calcium (8.4-10.2) mg/dL Total Bilirubin (0.2-1.3) mg/dL AST (14-36) U/L ALT (0-35) U/L Alkaline Phosphatase (38-126) U/L Serum Total Protein (6.3-8.2) g/dL Albumin (3.5-5.0) g/dL Amylase (30-110) U/L Lipase (23-300) U/L Urine Color (YELLOW) Urine Appearance (CLEAR) Urine pH (5-6) Ur Specific [place] (1.005-1.025) Urine Protein (Negative) Urine Ketones (NEGATIVE) Urine Blood (0-5) Jh/ul Urine Nitrite (NEGATIVE) Urine Bilirubin (NEGATIVE) Urine Urobilinogen (0-1) mg/dL Ur Leukocyte Esterase (NEGATIVE) Urine WBC (Auto) (0-5) /HPF Urine RBC (Auto) (0-2) /HPF U Epithel Cells (Auto) (FEW) /HPF Urine Bacteria (Auto) (NEGATIVE) /HPF Urine Mucus (Auto) (NEGATIVE) /HPF Urine Culture Reflexed (NO) Urine Glucose (NEGATIVE) mg/dL Slides for Path Review - Progress Progress: improved Counseled pt/family regarding: lab results, diagnosis, need for follow-up, rad results - Departure Departure Disposition: Home Clinical Impression: Renal calculus, right UTI (urinary tract infection) Qualifiers: Urinary tract infection type: acute pyelonephritis Qualified Code(s): N10 - Acute pyelonephritis HTN (hypertension) Qualifiers: Hypertension type: essential hypertension Qualified Code(s): I10 - Essential ( primary) hypertension Condition: Stable Critical Care Time: Yes Critical Care Time(excluding separately billable procedures): Critical 30-74 mins Referrals: ELAINE NICOLE MD [Primary Care Provider] - Instructions: Kidney Infection, Kidney Infection (DC), Kidney Stones (DC) Additional Instructions: Discharge/Care Plan ROBERTO THOMAS was seen on 12/23/19 in the Emergency Room. The patient was counseled regarding Diagnosis,Lab results, Imaging studies, need for follow up and when to return to the Emergency Room. Prescriptions given: Discharge Note I have spoken with the patient and/or caregivers. I have explained the patient' s condition, diagnosis and treatment plan based on the information available to me at this time. I have answered the patient's and/or caregiver's questions and addressed any concerns. The patient and/or caregivers have as good understanding of the patient's diagnosis, condition and treatment plan as can be expected at this point. The vital signs have been stable. The patient's condition is stable and appropriate for discharge from the emergency department. The patient will pursue further outpatient evaluation with the primary care physician or other designated or consulting physician as outlined in the discharge instructions. The patient and/or caregivers are agreeable to this plan of care and follow-up instructions have been explained in detail. The patient and/or caregivers have received these instruction. The patient/and or caregivers are aware that any significant change in condition or worsening of symptoms should prompt an immediate return to this or the closest emergency department or call 911. ROBERTO THOMAS was seen on 12/23/19 n the Emergency Room. At that time you were treated for an emergent condition, during your visit Laboratory, Radiology and/or other procedures may have been ordered. It is very important that you follow-up with your Primary Care Physician ELAINE NICOLE within the next 24- 48 hours to review your Emergency Room visit and the final results of testing that was ordered. Some test results such as Urine Cultures, Blood Cultures, and other cultures if ordered will not be finalized for 24-48 hours. If you do not have a Primary Care Provider please call the medical records department at [phone] ext [phone] to obtain a copy of your results or you may sign into our patient portal to obtain these results by visiting us @ [email or web address] and completing the following steps: 1. Click on the Patient Portal link 2. Click the Patient Self Enrollment Link to complete the enrollment form and entering your 3. Once the enrollment form is completed you will receive an email with a temporary ID and password at the email address you provided. 4. Next choose a user name and password. Your user name must be at least 4 characters long and your password must be at least 4 characters long. 5. Choose a security question from the list and provide your answer to the question. If you already have signed into the Health Portal you may access your Health Care Information 15/02 by the following steps: 1. Login to our website @ [email or web address] 2. Enter your original user name and password. FAQS The [facility] Health Portal is an online tool that contains your Lab Results, Radiology Reports, Visit History, Discharge Instructions and Health Summary Lab and Radiology Results will not be available for 72 hours on the portal. The Portal is a secure site, passwords are encryted and URLs are re-written so they cannot be copied and pasted. You and authorized family members are the only ones who can access your Portal. Also there is a timeout feature that protects your information if you leave the Portal page open. If you have technical difficulty please use the Contact Us link on the page this will allow you to submit any questions you have regarding the Portal or you may contact the Medical Record Department at [phone]. Prescriptions: Nitrofurantoin Macro 100 mg [Macrobid 100MG Capsule] 100 mg PO BID #15 cap
[2019-12-23 11:32] LABS: Slide Review 1 YES
[2019-12-23 11:34] LABS: ALBUMIN 4.7 g/dL (3.5-5.0); ALKALINE PHOSPHATASE 98 U/L (38-126); AMYLASE 137 U/L (30-110); ANION GAP 16.2 MEQ/L (5-15); BLOOD UREA NITROGEN 18 mg/dL (7-17); CHLORIDE 97 mmol/L (98-107); Calcium 10.8 mg/dL (8.4-10.2); Carbon Dioxide 24 mmol/L (22-30); Creatinine 1 0.93 mg/dL (0.52-1.04); Glucose 105 mg/dL (74-106); LIPASE 265 U/L (23-300); SGOT/AST 30 U/L (14-36); SGPT/ALT 23 U/L (0-35); SODIUM 132 mmol/L (137-145); Total Protein 7.8 g/dL (6.3-8.2)
[2019-12-23] MEDS ORDERED: ROCEPHIN 1 Gm-D5w 50 ml Bag** 1 G/50 ML IVPB IV STA (12:42)
[2019-12-23 12:46] VITALS: O2SAT 98
[2019-12-23] MEDS ORDERED: ROCEPHIN 1 Gm-D5w 50 ml Bag** 1 G/50 ML IVPB IV ONE (12:46)
[2019-12-23 13:02] VITALS: BP 180/76; PULSE 68
--- NOTE | 2019-12-23 20:37 | XRAY ---
Indication: Right flank pain. Frequent painful urination. Multiple contiguous axial images obtained through the abdomen and pelvis without contrast. Comparison: April 14, 2019. Lung bases clear of infiltrate and effusion. Heart is not enlarged. Stable small hiatal hernia. Noncontrasted stomach and bowel loops appear nonobstructed. Again right hemicolectomy with intact anastomosis, appendectomy, and hysterectomy. No free fluid/air. Urinary bladder now demonstrates tiny intraluminal air bubbles either iatrogenic versus gas-forming bacterial infection. Remaining liver, gallbladder, pancreas, spleen, adrenal glands, kidneys, and ureters appear unremarkable for noncontrast exam. Stable mild aortoiliac calcifications without AAA. Osseous structures intact again with mild osteopenia and mild degenerative changes throughout the spine and both hips. Impression: 1. New urinary bladder intraluminal air bubbles either iatrogenic versus gas-forming bacterial infection. 2. Stable small hiatal hernia, right hemicolectomy, and chronic bony findings. 3. Remaining CT abdomen/pelvis without contrast exam is negative. Comment: Preliminary interpretation was made by [facility]. No critical discrepancy.
== END 2019-12-23 13:08 | disposition home or self-care (01) ==
LOC: ED 10:44
DX: N10 Acute pyelonephritis (principal); I10 Essential (primary) hypertension; Z87.442 Personal history of urinary calculi; K21.9 Gastro-esophageal reflux disease without esophagitis; J44.9 Chronic obstructive pulmonary disease, unspecified
CPT/HCPCS: 36000; 36415; 74176; 80053; 81001; 82150; 83605; 83690; 85025; 87077; 87086; 87186; 93005; 96360; 96365; 99284; 99291; J0696

== ENCOUNTER 2021-03-06 13:31 | Observation (INO) | payer MEDICARE, OTHER ==
--- NOTE | 2021-03-06 13:53 | ERPHSYRPT ---
- History of Present Illness Time Seen by Provider: 03/06/21 13:52 Historian: patient, family Exam Limitations: no limitations Physician History: This is an 81-year-old white female who has a history of hypertension and anxiety issues as well as COPD and gastroesophageal reflux disease and presents with a 4 to 5-month history of left-sided abdominal pain. She has had no nausea vomiting or diarrhea. She has had no hematemesis. She denies bright red blood per rectum or dark tarry stools. In the last several days her symptoms have worsened. Patient's primary care doctor is Dr. Nicole and her ground systems engineer is Dr. Barnes. Patient has a pacemaker in place. Patient denies chest pain and denies shortness of breath. She does have elevated blood pressure upon arrival. Patient has taken her medication for high blood pressure today. Timing/Duration: worse, other (Left side abdominal pain for 4 to 5 months.) Quality: fullness, pressure Abdominal Pain Onset Location: LUQ, LLQ Pain Radiation: no radiation Severity of Pain-Max: mild Severity of Pain-Current: mild Modifying Factors: Improves With: nothing Associated Symptoms: denies symptoms Previous symptoms: same symptoms as today Allergies/Adverse Reactions: iodine Allergy (Unknown, Verified 03/06/21 13:53) Penicillins Allergy (Unknown, Verified 03/06/21 13:53) Nausea cephalexin [From Keflex] Allergy (Verified 03/06/21 13:53) Nausea latex Allergy (Verified 03/06/21 13:53) levofloxacin [From Levaquin] Allergy (Verified 03/06/21 13:53) Stomach Cramps sulfamethoxazole [From Bactrim] Allergy (Verified 03/06/21 13:53) trimethoprim [From Bactrim] Allergy (Verified 03/06/21 13:53) Stomach Pain Home Medications: ALPRAZolam 0.25 MG [xanAX 0.25 MG] 0.25 mg PO BID PRN 04/23/16 [History] Famotidine [Pepcid] 10 mg PO Q12H PRN PRN 12/23/19 [History] Hx Tetanus, Diphtheria Vaccination/Date Given: No Hx Influenza Vaccination/Date Given: Yes Hx Pneumococcal Vaccination/Date Given: No Travel Risk - International Travel Have you traveled outside of the country in past 3 weeks: No - Coronavirus Screening Are you exhibiting any of the following symptoms?: No Close contact with a COVID-19 positive Pt in past 14-21 Days: No - Review of Systems Constitutional: No Symptoms Eyes: No Symptoms Ears, Nose, & Throat: No Symptoms Respiratory: No Symptoms Cardiac: No Symptoms Abdominal/Gastrointestinal: Abdominal Pain (Left side abdominal pain), No Nausea, No Vomiting, No Diarrhea, No Constipation Genitourinary Symptoms: No Symptoms Musculoskeletal: No Symptoms Skin: No Symptoms Neurological: No Symptoms Psychological: No Symptoms Endocrine: No Symptoms Hematologic/Lymphatic: No Symptoms Immunological/Allergic: No Symptoms All Other Systems: Reviewed and Negative - Past Medical History Pertinent Past Medical History: Yes Neurological History: No Pertinent History ENT History: No Pertinent History Cardiac History: Hypertension Respiratory History: COPD Endocrine Medical History: No Pertinent History Musculoskeletal History: No Pertinent History GI Medical History: GERD, Hernia History: Other Psycho-Social History: Anxiety Female Reproductive Disorders: No Pertinent History Other Medical History: frequent UTI's, had TB twice- 1966 and 1969 - Past Surgical History Past Surgical History: Yes Neuro Surgical History: No Pertinent History Cardiac: No Pertinent History Respiratory: No Pertinent History Gastrointestinal: Appendectomy, Bowel Surgery, Colon Resection, Hernia Repair Genitourinary: No Pertinent History Musculoskeletal: No Pertinent History Female Surgical History: Hysterectomy Other Surgical History: september colon resection , "we were never told if it was cancer or not" "Dr Pelayo", Have had polypectomy since", states "throat stretched twice" - Social History Smoking Status: Never smoker Exposure to second hand smoke: No Alcohol Use: None Drug Use: none Patient Lives Alone: Yes Significant Family History: no pertinent family hx - Nursing Vital Signs Nursing Vital Signs: Initial Vital Signs Temperature 98 F 03/06/21 13:45 Pulse Rate 60 03/06/21 13:45 Respiratory Rate 16 03/06/21 13:45 Blood Pressure 222/88 03/06/21 13:45 O2 Sat by Pulse Oximetry 98 03/06/21 13:45 Pain Scale Pain Intensity 2 - Physical Exam General Appearance: no apparent distress, alert, anxiety Eye Exam: PERRL/EOMI, eyes nml inspection Ears, Nose, Throat Exam: normal ENT inspection, moist mucous membranes Neck Exam: normal inspection, non-tender, supple, full range of motion Respiratory Exam: normal breath sounds, lungs clear, airway intact, No chest tenderness, No respiratory distress Cardiovascular Exam: regular rate/rhythm, normal heart sounds, normal peripheral pulses Gastrointestinal/Abdomen Exam: soft, normal bowel sounds, tenderness (Left sided abdominal pain to palpation), guarding, No rebound Pelvic Exam: not done Rectal Exam: not done Back Exam: normal inspection, normal range of motion, No CVA tenderness, No vertebral tenderness Extremity Exam: normal inspection, normal range of motion, pelvis stable Neurologic Exam: alert, oriented x 3, cooperative, bottomer operator II-XII nml as tested, normal mood/affect, nml cerebellar function, nml station & gait, sensation nml Skin Exam: normal color, warm, dry Lymphatic Exam: No adenopathy SpO2 Interpretation: normal O2 Delivery: Room Air - Course Nursing assessment & vital signs reviewed: Yes EKG Interpreted by Me: RATE (60), NORMAL AXIS, Right Bundle Branch Block, NORMAL ST-T, Other (Atrial paced rhythm. Right bundle branch block. There are no acute ischemic changes on today's EKG. When compared to EKG dated 12/23/2019, there is no acute changes.) Ordered Tests: Active Orders 24 hr Category Date Time Status IV Insertion STAT Care 03/06/21 15:13 Active ABDOMEN AND PELVIS W/0 CONTRAS [CT] Stat Exams 03/06/21 15:12 Completed AMYLASE Stat Lab 03/06/21 15:15 Completed CBC W DIFF Stat Lab 03/06/21 15:15 Completed CMP Stat Lab 03/06/21 15:15 Completed LIPASE Stat Lab 03/06/21 15:15 Completed Lactic Acid Stat Lab 03/06/21 15:11 Completed UA W/RFX UR CULTURE Stat Lab 03/06/21 15:23 Completed Medication Summary Generic Name Dose Route Start Last Admin Trade Name Freq PRN Reason Stop Dose Admin Sodium Chloride 1,000 mls @ 100 mls/hr 03/06/21 15:15 03/06/21 15:26 Sodium Chloride 0.9% 1000 Ml IV 04/05/21 15:14 100 mls/hr .Q10H BRANNON Administration Discontinued Medications Generic Name Dose Route Start Last Admin Trade Name Freq PRN Reason Stop Dose Admin Acetaminophen 320 mg 03/06/21 18:02 Tylenol Suspension 160 Mg/5 Ml PO 03/06/21 18:03 STAT ONE Enalaprilat 1.25 mg 03/06/21 15:46 03/06/21 16:03 Vasotec I.V. 2.5 Mg IV 03/06/21 15:47 1.25 mg STAT ONE Administration Enalaprilat Confirm 03/06/21 16:00 Vasotec I.V. 2.5 Mg Administered 03/06/21 16:01 Dose 2.5 mg IV .STK-MED ONE Enalaprilat 1.25 mg 03/06/21 17:00 03/06/21 17:04 Vasotec I.V. 2.5 Mg IV 03/06/21 17:01 1.25 mg STAT ONE Administration Enalaprilat Confirm 03/06/21 17:02 Vasotec I.V. 2.5 Mg Administered 03/06/21 17:03 Dose 2.5 mg IV .STK-MED ONE Lab/Rad Data: Laboratory Result Diagrams 03/06/21 15:15 03/06/21 15:15 Laboratory Results 03/06/21 03/06/21 03/06/21 Range/Units 15:23 15:15 15:15 WBC 7.9 (4.0-10.5) K/mm3 RBC 4.51 (4.1-5.4) M/mm3 Hgb 13.4 (12.0-16.0) gm/dl Hct 42.6 (35-47) % MCV 94.5 (78-100) fl MCH 29.7 (26-32) pg MCHC 31.5 L (32-36) g/dl RDW 14.0 (11.5-14.0) % Plt Count 182 (150-450) K/mm3 MPV 13.5 H (7.5-11.0) fl Gran % 51.6 (36.0-66.0) % Eos # (Auto) 0.15 (0-0.5) Absolute Lymphs (auto) 2.81 (1.0-4.6) Absolute Monos (auto) 0.82 (0.0-1.3) Lymphocytes % 35.8 (24.0-44.0) % Monocytes % 10.4 (0.0-12.0) % Eosinophils % 1.9 (0.00-5.0) % Basophils % 0.3 (0.0-0.4) % Absolute Granulocytes 4.05 (1.4-6.9) Basophils # 0.02 (0-0.4) Sodium 137 (137-145) mmol/L Potassium 4.2 (3.5-5.1) mmol/L Chloride 98 (98-107) mmol/L Carbon Dioxide 32 H (22-30) mmol/L Anion Gap 11.7 (5-15) MEQ/L BUN 11 (7-17) mg/dL Creatinine 0.87 (0.52-1.04) mg/dL Estimated GFR > 60.0 ML/MIN Glucose 107 H (74-106) mg/dL Lactic Acid (0.4-2.0) Calcium 10.6 H (8.4-10.2) mg/dL Total Bilirubin 0.60 (0.2-1.3) mg/dL AST 29 (14-36) U/L ALT 19 (0-35) U/L Alkaline Phosphatase 81 (38-126) U/L Serum Total Protein 6.9 (6.3-8.2) g/dL Albumin 4.2 (3.5-5.0) g/dL Amylase 100 (30-110) U/L Lipase 185 (23-300) U/L Urine Color YELLOW (YELLOW) Urine Appearance SLIGHTLY CLOUDY (CLEAR) Urine pH 5.0 (5-6) Ur Specific Ruth 1.010 (1.005-1.025) Urine Protein NEGATIVE (Negative) Urine Ketones NEGATIVE (NEGATIVE) Urine Blood NEGATIVE (0-5) Jh/ul Urine Nitrite NEGATIVE (NEGATIVE) Urine Bilirubin NEGATIVE (NEGATIVE) Urine Urobilinogen NEGATIVE (0-1) mg/dL Ur Leukocyte Esterase MODERATE (NEGATIVE) Urine WBC (Auto) 6-10 (0-5) /HPF Urine RBC (Auto) 3-5 (0-2) /HPF U Epithel Cells (Auto) RARE (FEW) /HPF Urine Bacteria (Auto) RARE (NEGATIVE) /HPF Urine Mucus (Auto) SLIGHT (NEGATIVE) /HPF Urine Culture Reflexed NO (NO) Urine Glucose NEGATIVE (NEGATIVE) mg/dL 03/06/21 Range/Units 15:11 WBC (4.0-10.5) K/mm3 RBC (4.1-5.4) M/mm3 Hgb (12.0-16.0) gm/dl Hct (35-47) % MCV (78-100) fl MCH (26-32) pg MCHC (32-36) g/dl RDW (11.5-14.0) % Plt Count (150-450) K/mm3 MPV (7.5-11.0) fl Gran % (36.0-66.0) % Eos # (Auto) (0-0.5) Absolute Lymphs (auto) (1.0-4.6) Absolute Monos (auto) (0.0-1.3) Lymphocytes % (24.0-44.0) % Monocytes % (0.0-12.0) % Eosinophils % (0.00-5.0) % Basophils % (0.0-0.4) % Absolute Granulocytes (1.4-6.9) Basophils # (0-0.4) Sodium (137-145) mmol/L Potassium (3.5-5.1) mmol/L Chloride (98-107) mmol/L Carbon Dioxide (22-30) mmol/L Anion Gap (5-15) MEQ/L BUN (7-17) mg/dL Creatinine (0.52-1.04) mg/dL Estimated GFR ML/MIN Glucose (74-106) mg/dL Lactic Acid 1.2 (0.4-2.0) Calcium (8.4-10.2) mg/dL Total Bilirubin (0.2-1.3) mg/dL AST (14-36) U/L ALT (0-35) U/L Alkaline Phosphatase (38-126) U/L Serum Total Protein (6.3-8.2) g/dL Albumin (3.5-5.0) g/dL Amylase (30-110) U/L Lipase (23-300) U/L Urine Color (YELLOW) Urine Appearance (CLEAR) Urine pH (5-6) Ur Specific Ruth (1.005-1.025) Urine Protein (Negative) Urine Ketones (NEGATIVE) Urine Blood (0-5) Jh/ul Urine Nitrite (NEGATIVE) Urine Bilirubin (NEGATIVE) Urine Urobilinogen (0-1) mg/dL Ur Leukocyte Esterase (NEGATIVE) Urine WBC (Auto) (0-5) /HPF Urine RBC (Auto) (0-2) /HPF U Epithel Cells (Auto) (FEW) /HPF Urine Bacteria (Auto) (NEGATIVE) /HPF Urine Mucus (Auto) (NEGATIVE) /HPF Urine Culture Reflexed (NO) Urine Glucose (NEGATIVE) mg/dL - Progress Progress: improved, re-examined Progress Note: 03/06/21 18:11 CAT scan of the abdomen pelvis without contrast shows no acute intra-abdominal or intrapelvic process. Medical decision making: This patient presented with abdominal pain that was worsening. The patient was found to have hypertension during her stay today. She did have complaints of mild intermittent headache. We did our abdominal work-up which is negative for any acute findings. However, despite providing the patient with antihypertensive agents intravenously, the patient's blood pressure has been persistently elevated. I contacted Dr. Nicole, the patient's primary care physician. I reviewed the patient history, condition, blood pr essure readings, treatment provided to the patient, radiographic results and laboratory results. We both agree that the patient should be placed in observation on telemetry unit and have her blood pressure monitored and treated. Discussed with : Travon Counseled pt/family regarding: lab results, diagnosis, rad results - Departure Departure Disposition: Observation Clinical Impression: Hypertensive urgency, Abdominal pain Condition: Stable Critical Care Time: Yes Critical Care Time(excluding separately billable procedures): Critical 30-74 mins Referrals: ELAINE NICOLE MD [Primary Care Provider] -
[2021-03-06 15:26] LABS: Absolute Neutrophil Ct (ANC) 4.05 (1.4-6.9); BASOPHIL % 0.3 % (0.0-0.4); Basophil (Absolute #) 0.02 (0-0.4); Eosinophil % 1.9 % (0.00-5.0); Eosinophil (Absolute #) 0.15 (0-0.5); Hematocrit 42.6 % (35-47); Hemoglobin 13.4 gm/dl (12.0-16.0); Lymphocyte (Absolute #) 2.81 (1.0-4.6); Lymphocytes % 35.8 % (24.0-44.0); Mean Cell Volume 94.5 fl (78-100); Mean Corpuscular Hemoglobin 29.7 pg (26-32); Mean Corpuscular Hgb Concent. 31.5 g/dl (32-36); Mean Platelet Volume 13.5 fl (7.5-11.0); Monocyte (Absolute #) 0.82 (0.0-1.3); Monocytes % 10.4 % (0.0-12.0); Neutrophil % 51.6 % (36.0-66.0); Platelet Count 182 K/mm3 (150-450); Red Blood Count 4.51 M/mm3 (4.1-5.4); White Blood Count 7.9 K/mm3 (4.0-10.5)
[2021-03-06] MEDS: Sodium Chloride 0.9% 1000 ML 1,000 ML IV SCH (15:26)
[2021-03-06 15:30] LABS: ALBUMIN 4.2 g/dL (3.5-5.0); ALKALINE PHOSPHATASE 81 U/L (38-126); AMYLASE 100 U/L (30-110); ANION GAP 11.7 MEQ/L (5-15); BLOOD UREA NITROGEN 11 mg/dL (7-17); CHLORIDE 98 mmol/L (98-107); Calcium 10.6 mg/dL (8.4-10.2); Carbon Dioxide 32 mmol/L (22-30); Creatinine 1 0.87 mg/dL (0.52-1.04); EST GLOMERULAR FILTRATION RATE > 60.0 ML/MIN; Glucose 107 mg/dL (74-106); LIPASE 185 U/L (23-300); Potassium 4.2 mmol/L (3.5-5.1); SGOT/AST 29 U/L (14-36); SGPT/ALT 19 U/L (0-35); SODIUM 137 mmol/L (137-145); Total Protein 6.9 g/dL (6.3-8.2)
[2021-03-06 15:37] LABS: Appearance SLIGHTLY CLOUDY (CLEAR); Bacteria RARE /HPF (NEGATIVE); Bilirubin NEGATIVE (NEGATIVE); Blood NEGATIVE Ery/ul (0-5); Epithelial Cells RARE /HPF (FEW); Glucose NEGATIVE (NEGATIVE); Ketones NEGATIVE (NEGATIVE); Leukocyte Esterase MODERATE (NEGATIVE); Mucus SLIGHT /HPF (NEGATIVE); Nitrite NEGATIVE (NEGATIVE); Protein,Urine Dip NEGATIVE (Negative); Urobilinogen NEGATIVE mg/dL (0-1)
[2021-03-06] MEDS ORDERED: VASOTEC I.V. 2.5 MG IV ONE ×4 (15:46→17:02)
--- NOTE | 2021-03-06 16:30 | XRAY ---
Indication: Right upper quadrant pain. Multiple contiguous axial images obtained through the abdomen and pelvis without contrast. Comparison: December 23, 2019. Lung bases demonstrates minimal dependent atelectasis and stable minimal right middle lobe fibrosis/scarring. No infiltrate or effusion. Heart not enlarged with new pacer leads. Noncontrasted stomach and bowel loops are nonobstructed. Again right hemicolectomy with intact anastomosis, appendectomy, and hysterectomy. No free fluid/air. Remaining liver, gallbladder, pancreas, spleen, adrenal glands, kidneys, ureters, and bladder are unremarkable for noncontrast exam. Stable mild aortoiliac calcifications without AAA. Osseous structures intact again with mild osteopenia and mild degenerative changes throughout the spine and both hips. No ventral or inguinal hernias. Impression: 1. Stable right hemicolectomy and chronic bony findings. 2. Remaining CT abdomen/pelvis without contrast exam is negative.
[2021-03-06] MEDS ORDERED: TYLENOL SUSPENSION 160 MG/5 ML PO ONE (18:02)
[2021-03-06] MEDS ORDERED: APRESOLINE 20 MG/ML INJ IV ONE (18:09)
[2021-03-06] MEDS ORDERED: TYLENOL SUSPENSION 160 MG/5 ML ONE (18:27)
[2021-03-06] MEDS ORDERED: APRESOLINE 20 MG/ML INJ ONE (18:27)
[2021-03-06] MEDS ORDERED: Zestril 10 MG PO STA (19:17)
[2021-03-06] MEDS ORDERED: Ativan 2 MG/1 ML VIAL IV ONE (19:57)
[2021-03-06] MEDS ORDERED: Ativan 2 MG/1 ML VIAL ONE (19:59)
[2021-03-06] MEDS ORDERED: Zofran 4 MG/2 ML VIAL IV PRN (22:32)
[2021-03-06] MEDS ORDERED: TYLENOL SUSPENSION 160 MG/5 ML PO PRN (22:32)
[2021-03-06] MEDS: VASOTEC I.V. 2.5 MG IV SCH (23:05)
[2021-03-07 00:06] VITALS: O2SAT 98
[2021-03-07] MEDS: Sodium Chloride 0.9% 1000 ML 1,000 ML IV SCH (02:28)
[2021-03-07] MEDS: VASOTEC I.V. 2.5 MG IV SCH (04:54)
[2021-03-07 05:18] LABS: Absolute Neutrophil Ct (ANC) 2.35 (1.4-6.9); BASOPHIL % 0.4 % (0.0-0.4); Basophil (Absolute #) 0.02 (0-0.4); Eosinophil % 3.1 % (0.00-5.0); Eosinophil (Absolute #) 0.17 (0-0.5); Hemoglobin 12.6 gm/dl (12.0-16.0); Lymphocyte (Absolute #) 2.32 (1.0-4.6); Lymphocytes % 41.7 % (24.0-44.0); Mean Cell Volume 94.1 fl (78-100); Mean Corpuscular Hemoglobin 29.6 pg (26-32); Mean Corpuscular Hgb Concent. 31.5 g/dl (32-36); Mean Platelet Volume 12.1 fl (7.5-11.0); Monocytes % 12.6 % (0.0-12.0); Neutrophil % 42.2 % (36.0-66.0); Platelet Count 160 K/mm3 (150-450); Red Blood Count 4.25 M/mm3 (4.1-5.4); White Blood Count 5.6 K/mm3 (4.0-10.5)
[2021-03-07] MEDS ORDERED: VASOTEC I.V. 2.5 MG IV PRN (07:15)
[2021-03-07] MEDS ORDERED: Pepcid 20 MG PO PRN (11:04)
[2021-03-07] MEDS ORDERED: xanAX 0.25 MG PO SCH (11:15)
[2021-03-07] MEDS ORDERED: Zestril 20 MG PO SCH (11:30)
[2021-03-07] MEDS ORDERED: NON-FORMULARY ITEM (Acetaminophen [Tylenol] 650 MG) PO PRN (11:55)
[2021-03-07] MEDS ORDERED: NORVASC 5 MG PO SCH (12:00)
[2021-03-07] MEDS ORDERED: NORVASC 5 MG PO ONE (12:00)
[2021-03-07] MEDS ORDERED: Ear Wax Drops OT SCH (12:15)
[2021-03-07] MEDS ORDERED: TYLENOL 325 MG PO PRN (12:15)
[2021-03-07 12:34] VITALS: BP 163/73; PULSE 60
--- NOTE | 2021-03-07 13:05 | PCM.SSS ---
History of Present Illness - Chief Complaint Chief Complaint: very high blood pressure History of Present Illness: is a 81 year old female.who has a history of hypertension and anxiety i ssues as well as COPD and gastroesophageal reflux disease and presents with a 4 to 5-month history of left-sided abdominal pain. She has had no nausea vomiting or diarrhea. She has had no hematemesis. She denies bright red blood per rectum or dark tarry stools. In the last several days her symptoms have worsened. Patient's primary care doctor is Dr. Nicole and her rating officer is Dr. Barnes. Patient has a pacemaker in place. Patient denies chest pain and denies shortness of breath. She does have elevated blood pressure upon arrival. Patient has taken her medication for high blood pressure today. Timing/Duration: worse, other (Left side abdominal pain for 4 to 5 months.) Quality: fullness, pressure Abdominal Pain Onset Location: LUQ, LLQ Pain Radiation: no radiation Severity of Pain-Max: mild Severity of Pain-Current: mild Modifying Factors: Improves With: nothing Associated Symptoms: denies symptoms Previous symptoms: same symptoms as today - Review of Systems Constitutional: No Fever, No Chills Eyes: No Symptoms Ears, Nose, & Throat: No Symptoms Respiratory: No Cough, No Short Of Breath Cardiac: No Chest Pain, No Edema, No Syncope Abdominal/Gastrointestinal: No Abdominal Pain, No Nausea, No Vomiting, No Diarrhea Genitourinary Symptoms: No Dysuria Musculoskeletal: No Back Pain, No Neck Pain Skin: No Rash Neurological: No Dizziness, No Focal Weakness, No Sensory Changes Psychological: No Symptoms Endocrine: No Symptoms Hematologic/Lymphatic: No Symptoms Immunological/Allergic: No Symptoms Medications & Allergies Home Medications: Home Medication List Famotidine [Pepcid] 10 mg PO BID 12/23/19 [History Confirmed 03/07/21] ALPRAZolam 0.25 MG [xanAX 0.25 MG] 0.25 mg PO BID PRN #20 tablet MDD 2 a day 03/07/21 [Rx] ALPRAZolam 0.25 MG [xanAX 0.25 MG] 0.25 mg PO BID PRN PRN 03/07/21 [History Confirmed 03/07/21] Acetaminophen [Tylenol] 650 mg PO Q4HPRN PRN 03/07/21 [History Confirmed 03/07/21] Amlodipine Besylate [Norvasc] 5 mg PO DAILY 03/07/21 [History Confirmed 03/07/21] Carbamide Peroxide [Debrox] 5 drops OT BID 03/07/21 [History Confirmed 03/07/21] Lisinopril 10 mg [Zestril 10 MG] 10 mg PO BID 03/07/21 [History Confirmed 03/07/21] Allergies/Adverse Reactions: Allergies Allergy/AdvReac Type Severity Reaction Status Date / Time iodine Allergy Unknown Verified 03/06/21 13:53 Penicillins Allergy Unknown Nausea Verified 03/06/21 13:53 cephalexin [From Keflex] Allergy Nausea Verified 03/06/21 13:53 latex Allergy Verified 03/06/21 13:53 levofloxacin [From Levaquin] Allergy Stomach Verified 03/06/21 13:53 Cramps sulfamethoxazole Allergy Verified 03/06/21 13:53 [From Bactrim] trimethoprim [From Bactrim] Allergy Stomach Verified 03/06/21 13:53 Pain - Past Medical History Past Medical History: Yes Neurological History: No Pertinent History ENT History: No Pertinent History Cardiac History: Hypertension Respiratory History: COPD Endocrine Medical History: No Pertinent History Musculoskelatal History: No Pertinent History GI Medical History: GERD, Hernia History: Other Pyscho-Social History: Anxiety Reproductive Disorders: No Pertinent History Comment: frequent UTI's, had TB twice- 1966 and 1969 - Female History Are you now?: No - Past Surgical History Past Surgical History: Yes Neuro Surgical History: No Pertinent History Cardiac History: No Pertinent History, Pacemaker Respiratory Surgery: No Pertinent History GI Surgical History: Appendectomy, Bowel Surgery, Colon Resection, Hernia Repair Genitourinary Surgical Hx: No Pertinent History Musculskeletal Surgical Hx: No Pertinent History Female Surgical History: Hysterectomy Other Surgical History: september colon resection , "we were never told if it was cancer or not" "Dr Pelayo", Have had polypectomy since", states "throat stretched twice" - Social History Smoking Status: Never smoker Exposure to second hand smoke: No Alcohol: None Drug Use: none Significant Family History: no pertinent family hx - Physical Exam Vital Signs: Vital Signs - 24 hr Temp Pulse Resp BP BP Pulse Ox 03/07/21 12:00 97.6 F 60 16 163/73 98 03/07/21 07:55 98.1 F 65 16 177/87 98 03/07/21 04:00 97.5 F 66 19 176/86 98 03/07/21 00:00 97.3 F 60 16 209/92 98 03/06/21 23:42 97.3 F 60 16 204/86 209/92 98 03/06/21 22:00 60 18 166/81 96 03/06/21 21:00 63 16 188/83 98 03/06/21 19:00 62 14 220/98 100 03/06/21 18:45 210/85 03/06/21 18:03 60 18 215/90 99 03/06/21 17:01 60 16 190/84 98 03/06/21 15:39 60 18 205/90 98 03/06/21 14:36 60 20 187/90 98 03/06/21 13:45 98 F 60 16 222/88 98 General Appearance: no apparent distress, alert Neurologic Exam: alert, oriented x 3, cooperative, normal mood/affect, nml cerebellar function, nml station & gait, sensation nml, No motor deficits Eye Exam: PERRL/EOMI, eyes nml inspection Ears, Nose, Throat Exam: normal ENT inspection, TMs normal, pharynx normal, moist mucous membranes Neck Exam: normal inspection, non-tender, supple, full range of motion Respiratory Exam: normal breath sounds, lungs clear, No respiratory distress Cardiovascular Exam: regular rate/rhythm, normal heart sounds, normal peripheral pulses Gastrointestinal/Abdomen Exam: soft, normal bowel sounds, No tenderness, No mass Back Exam: normal inspection, normal range of motion, No CVA tenderness, No vertebral tenderness Extremity Exam: normal inspection, normal range of motion, pelvis stable Skin Exam: normal color, warm, dry, No rash Lymphatic Exam: No adenopathy Results - Labs Lab/Micro Results: Lab Results-Last 24 Hours 03/06/21 03/06/21 03/06/21 Range/Units 15:11 15:15 15:15 WBC 7.9 (4.0-10.5) K/mm3 RBC 4.51 (4.1-5.4) M/mm3 Hgb 13.4 (12.0-16.0) gm/dl Hct 42.6 (35-47) % MCV 94.5 (78-100) fl MCH 29.7 (26-32) pg MCHC 31.5 L (32-36) g/dl RDW 14.0 (11.5-14.0) % Plt Count 182 (150-450) K/mm3 MPV 13.5 H (7.5-11.0) fl Gran % 51.6 (36.0-66.0) % Eos # (Auto) 0.15 (0-0.5) Absolute Lymphs (auto) 2.81 (1.0-4.6) Absolute Monos (auto) 0.82 (0.0-1.3) Lymphocytes % 35.8 (24.0-44.0) % Monocytes % 10.4 (0.0-12.0) % Eosinophils % 1.9 (0.00-5.0) % Basophils % 0.3 (0.0-0.4) % Absolute Granulocytes 4.05 (1.4-6.9) Basophils # 0.02 (0-0.4) Sodium 137 (137-145) mmol/L Potassium 4.2 (3.5-5.1) mmol/L Chloride 98 (98-107) mmol/L Carbon Dioxide 32 H (22-30) mmol/L Anion Gap 11.7 (5-15) MEQ/L BUN 11 (7-17) mg/dL Creatinine 0.87 (0.52-1.04) mg/dL Estimated GFR > 60.0 ML/MIN Glucose 107 H (74-106) mg/dL Lactic Acid 1.2 (0.4-2.0) Calcium 10.6 H (8.4-10.2) mg/dL Total Bilirubin 0.60 (0.2-1.3) mg/dL AST 29 (14-36) U/L ALT 19 (0-35) U/L Alkaline Phosphatase 81 (38-126) U/L NT-Pro-B Natriuret Pep (0-1800) pg/mL Serum Total Protein 6.9 (6.3-8.2) g/dL Albumin 4.2 (3.5-5.0) g/dL Amylase 100 (30-110) U/L Lipase 185 (23-300) U/L Urine Color (YELLOW) Urine Appearance (CLEAR) Urine pH (5-6) Ur Specific [place] (1.005-1.025) Urine Protein (Negative) Urine Ketones (NEGATIVE) Urine Blood (0-5) Jh/ul Urine Nitrite (NEGATIVE) Urine Bilirubin (NEGATIVE) Urine Urobilinogen (0-1) mg/dL Ur Leukocyte Esterase (NEGATIVE) Urine WBC (Auto) (0-5) /HPF Urine RBC (Auto) (0-2) /HPF U Epithel Cells (Auto) (FEW) /HPF Urine Bacteria (Auto) (NEGATIVE) /HPF Urine Mucus (Auto) (NEGATIVE) /HPF Urine Culture Reflexed (NO) Urine Glucose (NEGATIVE) mg/dL SARS-CoV-2 (PCR) (NEGATIVE) 03/06/21 03/06/21 03/07/21 Range/Units 15:23 19:56 05:05 WBC 5.6 (4.0-10.5) K/mm3 RBC 4.25 (4.1-5.4) M/mm3 Hgb 12.6 (12.0-16.0) gm/dl Hct 40.0 (35-47) % MCV 94.1 (78-100) fl MCH 29.6 (26-32) pg MCHC 31.5 L (32-36) g/dl RDW 14.0 (11.5-14.0) % Plt Count 160 (150-450) K/mm3 MPV 12.1 H (7.5-11.0) fl Gran % 42.2 (36.0-66.0) % Eos # (Auto) 0.17 (0-0.5) Absolute Lymphs (auto) 2.32 (1.0-4.6) Absolute Monos (auto) 0.70 (0.0-1.3) Lymphocytes % 41.7 (24.0-44.0) % Monocytes % 12.6 H (0.0-12.0) % Eosinophils % 3.1 (0.00-5.0) % Basophils % 0.4 (0.0-0.4) % Absolute Granulocytes 2.35 (1.4-6.9) Basophils # 0.02 (0-0.4) Sodium (137-145) mmol/L Potassium (3.5-5.1) mmol/L Chloride (98-107) mmol/L Carbon Dioxide (22-30) mmol/L Anion Gap (5-15) MEQ/L BUN (7-17) mg/dL Creatinine (0.52-1.04) mg/dL Estimated GFR ML/MIN Glucose (74-106) mg/dL Lactic Acid (0.4-2.0) Calcium (8.4-10.2) mg/dL Total Bilirubin (0.2-1.3) mg/dL AST (14-36) U/L ALT (0-35) U/L Alkaline Phosphatase (38-126) U/L NT-Pro-B Natriuret Pep (0-1800) pg/mL Serum Total Protein (6.3-8.2) g/dL Albumin (3.5-5.0) g/dL Amylase (30-110) U/L Lipase (23-300) U/L Urine Color YELLOW (YELLOW) Urine Appearance SLIGHTLY CLOUDY (CLEAR) Urine pH 5.0 (5-6) Ur Specific [place] 1.010 (1.005-1.025) Urine Protein NEGATIVE (Negative) Urine Ketones NEGATIVE (NEGATIVE) Urine Blood NEGATIVE (0-5) Jh/ul Urine Nitrite NEGATIVE (NEGATIVE) Urine Bilirubin NEGATIVE (NEGATIVE) Urine Urobilinogen NEGATIVE (0-1) mg/dL Ur Leukocyte Esterase MODERATE (NEGATIVE) Urine WBC (Auto) 6-10 (0-5) /HPF Urine RBC (Auto) 3-5 (0-2) /HPF U Epithel Cells (Auto) RARE (FEW) /HPF Urine Bacteria (Auto) RARE (NEGATIVE) /HPF Urine Mucus (Auto) SLIGHT (NEGATIVE) /HPF Urine Culture Reflexed NO (NO) Urine Glucose NEGATIVE (NEGATIVE) mg/dL SARS-CoV-2 (PCR) NEGATIVE (NEGATIVE) 03/07/21 Range/Units 05:05 WBC (4.0-10.5) K/mm3 RBC (4.1-5.4) M/mm3 Hgb (12.0-16.0) gm/dl Hct (35-47) % MCV (78-100) fl MCH (26-32) pg MCHC (32-36) g/dl RDW (11.5-14.0) % Plt Count (150-450) K/mm3 MPV (7.5-11.0) fl Gran % (36.0-66.0) % Eos # (Auto) (0-0.5) Absolute Lymphs (auto) (1.0-4.6) Absolute Monos (auto) (0.0-1.3) Lymphocytes % (24.0-44.0) % Monocytes % (0.0-12.0) % Eosinophils % (0.00-5.0) % Basophils % (0.0-0.4) % Absolute Granulocytes (1.4-6.9) Basophils # (0-0.4) Sodium (137-145) mmol/L Potassium (3.5-5.1) mmol/L Chloride (98-107) mmol/L Carbon Dioxide (22-30) mmol/L Anion Gap (5-15) MEQ/L BUN (7-17) mg/dL Creatinine (0.52-1.04) mg/dL Estimated GFR ML/MIN Glucose (74-106) mg/dL Lactic Acid (0.4-2.0) Calcium (8.4-10.2) mg/dL Total Bilirubin (0.2-1.3) mg/dL AST (14-36) U/L ALT (0-35) U/L Alkaline Phosphatase (38-126) U/L NT-Pro-B Natriuret Pep 706 (0-1800) pg/mL Serum Total Protein (6.3-8.2) g/dL Albumin (3.5-5.0) g/dL Amylase (30-110) U/L Lipase (23-300) U/L Urine Color (YELLOW) Urine Appearance (CLEAR) Urine pH (5-6) Ur Specific [place] (1.005-1.025) Urine Protein (Negative) Urine Ketones (NEGATIVE) Urine Blood (0-5) Jh/ul Urine Nitrite (NEGATIVE) Urine Bilirubin (NEGATIVE) Urine Urobilinogen (0-1) mg/dL Ur Leukocyte Esterase (NEGATIVE) Urine WBC (Auto) (0-5) /HPF Urine RBC (Auto) (0-2) /HPF U Epithel Cells (Auto) (FEW) /HPF Urine Bacteria (Auto) (NEGATIVE) /HPF Urine Mucus (Auto) (NEGATIVE) /HPF Urine Culture Reflexed (NO) Urine Glucose (NEGATIVE) mg/dL SARS-CoV-2 (PCR) (NEGATIVE) - Radiology Impressions Radiology Exams & Impressions: Radiology Procedures Category Date Time Status ABDOMEN AND PELVIS W/0 CONTRAS [CT] Stat Exams 03/06/21 15:12 Completed Assessment/Plan (1) Hypertensive urgency Current Visit: Yes Status: Acute Code(s): I16.0 - HYPERTENSIVE URGENCY Hospital Summary - Hospital Course Hospital Course: Chief Complaint Diagnosis very high blood pressure Allergies Allergy/AdvReac Type Severity Reaction Status Date / Time iodine Allergy Unknown Verified 03/06/21 13:53 Penicillins Allergy Unknown Nausea Verified 03/06/21 13:53 cephalexin [From Keflex] Allergy Nausea Verified 03/06/21 13:53 latex Allergy Verified 03/06/21 13:53 levofloxacin [From Levaquin] Allergy Stomach Verified 03/06/21 13:53 Cramps sulfamethoxazole Allergy Verified 03/06/21 13:53 [From Bactrim] trimethoprim [From Bactrim] Allergy Stomach Verified 03/06/21 13:53 Pain Vital Signs (Last 24 hours) Temp Pulse Resp BP BP Pulse Ox 03/07/21 12:00 97.6 F 60 16 163/73 98 03/07/21 07:55 98.1 F 65 16 177/87 98 03/07/21 04:00 97.5 F 66 19 176/86 98 03/07/21 00:00 97.3 F 60 16 209/92 98 03/06/21 23:42 97.3 F 60 16 204/86 209/92 98 03/06/21 22:00 60 18 166/81 96 03/06/21 21:00 63 16 188/83 98 03/06/21 19:00 62 14 220/98 100 03/06/21 18:45 210/85 03/06/21 18:03 60 18 215/90 99 03/06/21 17:01 60 16 190/84 98 03/06/21 15:39 60 18 205/90 98 03/06/21 14:36 60 20 187/90 98 03/06/21 13:45 98 F 60 16 222/88 98 Home Medications Medication Instructions Recorded Confirmed Last Taken Type ALPRAZolam 0.25 MG [xanAX 0.25 0.25 mg PO BID PRN PRN 03/07/21 03/07/21 Unknown History MG] Acetaminophen [Tylenol] 650 mg PO Q4HPRN PRN 03/07/21 03/07/21 Unknown History Amlodipine Besylate [Norvasc] 5 mg PO DAILY 03/07/21 03/07/21 Unknown History Carbamide Peroxide [Debrox] 5 drops OT BID 03/07/21 03/07/21 Unknown History Lisinopril 10 mg [Zestril 10 10 mg PO BID 03/07/21 03/07/21 03/07/21 History MG] Current Medications Generic Name Dose Route Start Last Admin Trade Name Radha PRN Reason Stop Dose Admin Acetaminophen 650 mg 03/07/21 12:15 Tylenol 325 Mg PO 04/06/21 12:14 Q4HPRN PRN PAIN Alprazolam 0.25 mg 03/07/21 11:15 Xanax 0.25 Mg PO 04/06/21 11:14 BID PRN BRANNON Amlodipine Besylate 5 mg 03/07/21 12:00 Norvasc 5 Mg PO 04/06/21 11:59 DAILY BRANNON Carbamide Perox/Anhydrous Glycerin 0 ml 03/07/21 12:15 Ear Wax Drops OT 04/06/21 12:14 BID BRANNON Enalaprilat 1.25 mg 03/07/21 07:15 Vasotec I.V. 2.5 Mg IV 04/05/21 22:31 Q6H/PRN PRN Sodium Chloride 1,000 mls @ 100 mls/hr 03/06/21 15:15 03/07/21 02:28 Sodium Chloride 0.9% 1000 Ml IV 04/05/21 15:14 100 mls/hr .Q10H BRANNON Administration Lisinopril 10 mg 03/08/21 10:00 Zestril 10 Mg PO 04/07/21 09:59 DAILY BRANNON Ondansetron HCl 4 mg 03/06/21 22:32 Zofran 4 Mg/2 Ml Vial IV 04/05/21 22:31 Q6H PRN PRN NAUSEA/VOMITING Discontinued Medications Generic Name Dose Route Start Last Admin Trade Name Radha PRN Reason Stop Dose Admin Acetaminophen 320 mg 03/06/21 18:02 03/06/21 18:29 Tylenol Suspension 160 Mg/5 Ml PO 03/06/21 18:03 320 mg STAT ONE Administration Acetaminophen Confirm 03/06/21 18:27 Tylenol Suspension 160 Mg/5 Ml Administered 03/06/21 18:28 Dose 160 mg .ROUTE .STK-MED ONE Acetaminophen 320 mg 03/06/21 22:32 Tylenol Suspension 160 Mg/5 Ml PO 04/05/21 22:31 Q4H PRN PRN PAIN AND/OR FEVER Amlodipine Besylate 5 mg 03/07/21 12:00 03/07/21 12:05 Norvasc 5 Mg PO 03/07/21 12:01 5 mg ONCE ONE Administration Enalaprilat 1.25 mg 03/06/21 15:46 03/06/21 16:03 Vasotec I.V. 2.5 Mg IV 03/06/21 15:47 1.25 mg STAT ONE Administration Enalaprilat Confirm 03/06/21 16:00 Vasotec I.V. 2.5 Mg Administered 03/06/21 16:01 Dose 2.5 mg IV .STK-MED ONE Enalaprilat 1.25 mg 03/06/21 17:00 03/06/21 17:04 Vasotec I.V. 2.5 Mg IV 03/06/21 17:01 1.25 mg STAT ONE Administration Enalaprilat Confirm 03/06/21 17:02 Vasotec I.V. 2.5 Mg Administered 03/06/21 17:03 Dose 2.5 mg IV .STK-MED ONE Enalaprilat 1.25 mg 03/06/21 22:32 03/07/21 04:54 Vasotec I.V. 2.5 Mg IV 04/05/21 22:31 1.25 mg Q6H BRANNON Administration Famotidine 10 mg 03/07/21 11:04 Pepcid 20 Mg PO 04/06/21 11:03 Q12H PRN PRN MILD PAIN Hydralazine HCl 5 mg 03/06/21 18:09 03/06/21 18:30 Apresoline 20 Mg/Ml Inj IV 03/06/21 18:10 5 mg STAT ONE Administration Hydralazine HCl Confirm 03/06/21 18:27 Apresoline 20 Mg/Ml Inj Administered 03/06/21 18:28 Dose 20 mg .ROUTE .STK-MED ONE Lisinopril 10 mg 03/06/21 19:17 03/06/21 19:44 Zestril 10 Mg PO 03/06/21 19:18 10 mg STAT STA Administration Lisinopril 20 mg 03/07/21 11:30 03/07/21 11:24 Zestril 20 Mg PO 04/06/21 11:29 20 mg DAILY BRANNON Administration Lorazepam 0.5 mg 03/06/21 19:57 03/06/21 20:02 Ativan 2 Mg/1 Ml Vial IV 03/06/21 19:58 0.5 mg STAT ONE Administration Lorazepam Confirm 03/06/21 19:59 Ativan 2 Mg/1 Ml Vial Administered 03/06/21 20:00 Dose 2 mg .ROUTE .STK-MED ONE Intake & Output (Last 24 hours) 03/05/21 03/06/21 03/07/21 03/08/21 11:59 11:59 11:59 11:59 Intake Total 580 Balance 580 Weight 57.7 kg Laboratory Results (Last 24 hours) 03/07/21 03/07/21 03/06/21 05:05 05:05 19:56 WBC 5.6 RBC 4.25 Hgb 12.6 Hct 40.0 MCV 94.1 MCH 29.6 MCHC 31.5 L RDW 14.0 Plt Count 160 MPV 12.1 H Gran % 42.2 Eos # (Auto) 0.17 Absolute Lymphs (auto) 2.32 Absolute Monos (auto) 0.70 Lymphocytes % 41.7 Monocytes % 12.6 H Eosinophils % 3.1 Basophils % 0.4 Absolute Granulocytes 2.35 Basophils # 0.02 Sodium Potassium Chloride Carbon Dioxide Anion Gap BUN Creatinine Estimated GFR Glucose Lactic Acid Calcium Total Bilirubin AST ALT Alkaline Phosphatase NT-Pro-B Natriuret Pep 706 Serum Total Protein Albumin Amylase Lipase Urine Color Urine Appearance Urine pH Ur Specific [place] Urine Protein Urine Ketones Urine Blood Urine Nitrite Urine Bilirubin Urine Urobilinogen Ur Leukocyte Esterase Urine WBC (Auto) Urine RBC (Auto) U Epithel Cells (Auto) Urine Bacteria (Auto) Urine Mucus (Auto) Urine Culture Reflexed Urine Glucose SARS-CoV-2 (PCR) NEGATIVE 03/06/21 03/06/21 03/06/21 15:23 15:15 15:15 WBC 7.9 RBC 4.51 Hgb 13.4 Hct 42.6 MCV 94.5 MCH 29.7 MCHC 31.5 L RDW 14.0 Plt Count 182 MPV 13.5 H Gran % 51.6 Eos # (Auto) 0.15 Absolute Lymphs (auto) 2.81 Absolute Monos (auto) 0.82 Lymphocytes % 35.8 Monocytes % 10.4 Eosinophils % 1.9 Basophils % 0.3 Absolute Granulocytes 4.05 Basophils # 0.02 Sodium 137 Potassium 4.2 Chloride 98 Carbon Dioxide 32 H Anion Gap 11.7 BUN 11 Creatinine 0.87 Estimated GFR > 60.0 Glucose 107 H Lactic Acid Calcium 10.6 H Total Bilirubin 0.60 AST 29 ALT 19 Alkaline Phosphatase 81 NT-Pro-B Natriuret Pep Serum Total Protein 6.9 Albumin 4.2 Amylase 100 Lipase 185 Urine Color YELLOW Urine Appearance SLIGHTLY CLOUDY Urine pH 5.0 Ur Specific [place] 1.010 Urine Protein NEGATIVE Urine Ketones NEGATIVE Urine Blood NEGATIVE Urine Nitrite NEGATIVE Urine Bilirubin NEGATIVE Urine Urobilinogen NEGATIVE Ur Leukocyte Esterase MODERATE Urine WBC (Auto) 6-10 Urine RBC (Auto) 3-5 U Epithel Cells (Auto) RARE Urine Bacteria (Auto) RARE Urine Mucus (Auto) SLIGHT Urine Culture Reflexed NO Urine Glucose NEGATIVE SARS-CoV-2 (PCR) 03/06/21 15:11 WBC RBC Hgb Hct MCV MCH MCHC RDW Plt Count MPV Gran % Eos # (Auto) Absolute Lymphs (auto) Absolute Monos (auto) Lymphocytes % Monocytes % Eosinophils % Basophils % Absolute Granulocytes Basophils # Sodium Potassium Chloride Carbon Dioxide Anion Gap BUN Creatinine Estimated GFR Glucose Lactic Acid 1.2 Calcium Total Bilirubin AST ALT Alkaline Phosphatase NT-Pro-B Natriuret Pep Serum Total Protein Albumin Amylase Lipase Urine Color Urine Appearance Urine pH Ur Specific [place] Urine Protein Urine Ketones Urine Blood Urine Nitrite Urine Bilirubin Urine Urobilinogen Ur Leukocyte Esterase Urine WBC (Auto) Urine RBC (Auto) U Epithel Cells (Auto) Urine Bacteria (Auto) Urine Mucus (Auto) Urine Culture Reflexed Urine Glucose SARS-CoV-2 (PCR) Orders (Last 24 hours) Category Date Time Status Bedrest TOLERATED Activity 03/06/21 22:32 Active Code Status Order ROUTINE Care 03/06/21 22:32 Active IV Insertion STAT Care 03/06/21 15:[address] in Observation ROUTINE Care 03/06/21 22:32 Active Telemetry q6h Care 03/06/21 21:49 Active Primary [employer] Teacher/Discharge Plan ROUTINE Cons 03/07/21 00:10 Active Primary [employer] Teacher/Discharge Plan ROUTINE Cons 03/07/21 00:36 Completed House Regular Diet Diet 03/07/21 Lunch Active ABDOMEN AND PELVIS W/0 CONTRAS [CT] Stat Exams 03/06/21 15:12 Completed AMYLASE Stat Lab 03/06/21 15:15 Completed CBC W DIFF AM.LAB Lab 03/07/21 05:05 Completed CBC W DIFF Stat Lab 03/06/21 15:15 Completed CMP Stat Lab 03/06/21 15:15 Completed LIPASE Stat Lab 03/06/21 15:15 Completed Lactic Acid Stat Lab 03/06/21 15:11 Completed NT PRO BNP AM.LAB Lab 03/07/21 05:05 Completed SARS-CoV-2 Xpert Express Stat Lab 03/06/21 19:56 Completed UA W/RFX UR CULTURE Stat Lab 03/06/21 15:23 Completed ALPRAZolam 0.25 MG [xanAX 0.25 MG] Med 03/07/21 11:15 Active 0.25 mg PO BID PRN Acetaminophen 325 mg [Tylenol 325 mg] Med 03/07/21 12:15 Active 650 mg PO Q4HPRN PRN Acetaminophen Susp [Tylenol Suspension 160 mg/5 ml Med 03/06/21 18:27 Discontinued *] 160 mg .ROUTE .STK-MED ONE Acetaminophen Susp [Tylenol Suspension 160 mg/5 ml Med 03/06/21 22:32 Discontinued *] 320 mg PO Q4H PRN PRN Acetaminophen Susp [Tylenol Suspension 160 mg/5 ml Med 03/06/21 18:02 Discontinued *] 320 mg PO STAT ONE Amlodipine Besylate 5 mg [Norvasc 5 mg] Med 03/07/21 12:00 Active 5 mg PO DAILY Amlodipine Besylate 5 mg [Norvasc 5 mg] Med 03/07/21 12:00 Discontinued 5 mg PO ONCE ONE Carbamide Peroxide [Ear Wax Drops] Med 03/07/21 12:15 Active 0 ml OT BID Enalaprilat 2.5 mg Inj [Vasotec I.v. 2.5 mg] Med 03/06/21 22:32 Discontinued 1.25 mg IV Q6H Enalaprilat 2.5 mg Inj [Vasotec I.v. 2.5 mg] Med 03/07/21 07:15 Active 1.25 mg IV Q6H/PRN PRN Enalaprilat 2.5 mg Inj [Vasotec I.v. 2.5 mg] Med 03/06/21 15:46 Discontinued 1.25 mg IV STAT ONE Enalaprilat 2.5 mg Inj [Vasotec I.v. 2.5 mg] Med 03/06/21 17:00 Discontinued 1.25 mg IV STAT ONE Enalaprilat 2.5 mg Inj [Vasotec I.v. 2.5 mg] Med 03/06/21 16:00 Discontinued 2.5 mg IV .STK-MED ONE Enalaprilat 2.5 mg Inj [Vasotec I.v. 2.5 mg] Med 03/06/21 17:02 Discontinued 2.5 mg IV .STK-MED ONE Famotidine 20 mg [Pepcid 20 MG] Med 03/07/21 11:04 Discontinued 10 mg PO Q12H PRN PRN HydrALAzine HCL 20 MG INJ [Apresoline 20 mg/ml Inj Med 03/06/21 18:27 Discontinued *] 20 mg .ROUTE .STK-MED ONE HydrALAzine HCL 20 MG INJ [Apresoline 20 mg/ml Inj Med 03/06/21 18:09 Discontinued *] 5 mg IV STAT ONE Lisinopril 10 mg [Zestril 10 MG] Med 03/08/21 10:00 Active 10 mg PO DAILY Lisinopril 10 mg [Zestril 10 MG] Med 03/06/21 19:17 Discontinued 10 mg PO STAT STA Lisinopril 20 mg [Zestril 20 MG] Med 03/07/21 11:30 Discontinued 20 mg PO DAILY Lorazepam 2 mg/1 ml [Ativan 2 MG/1 ML VIAL] Med 03/06/21 19:57 Discontinued 0.5 mg IV STAT ONE Lorazepam 2 mg/1 ml [Ativan 2 MG/1 ML VIAL] Med 03/06/21 19:59 Discontinued 2 mg .ROUTE .STK-MED ONE NaCl 0.9% 1000 ml [Sodium Chloride 0.9% 1000 ML] 1,000 Med 03/06/21 15:15 Acti ve ml IV 100 mls/hr Ondansetron HCl 4 mg/2 ml [Zofran 4 MG/2 ML VIAL] Med 03/06/21 22:32 Active 4 mg IV Q6H PRN PRN Patient Care Notes (Last 24 hours) 03/07/21 12:51 Case Management Note by Meaghan Mejía S/W PRIMARY RN ABOUT DC ORDERS- SHE WILL CLARIFY DOSING FOR NORVASC AND LISINOPRIL WITH DR. NICOLE Initialized on 03/07/21 12:51 - END OF NOTE 03/07/21 12:48 Case Management Note by Meaghan Mejía ROUNDED WITH DR. NICOLE- PATIENT CAN DC HOME. PATIENT TO START TAKING NORVASC IN THE AM AND LISINOPRIL IN THE PM. COREY STATED WE ALREADY HAD THE DOSES ORDERED. PATIENT TO TAKE STOMACH PILL BID AND CONTINUE TO TAKE THE XANAX PRN. HE WILL SEND IN REFILL FOR PATIENT'S XANAX. PATIENT TO SEE HIM NEXT WEEK Initialized on 03/07/21 12:48 - END OF NOTE - Vitals & Intake/Output Vital Signs: Vital Signs Temperature 97.6 F 03/07/21 12:00 Pulse Rate 60 03/07/21 12:00 Respiratory Rate 16 03/07/21 12:00 Blood Pressure 163/73 03/07/21 12:00 O2 Sat by Pulse Oximetry 98 03/07/21 12:00 Intake & Output: Intake & Output 03/05/21 03/06/21 03/07/21 03/08/21 11:59 11:59 11:59 11:59 Intake Total 580 Balance 580 Weight 57.7 kg - Lab Result Diagrams: 03/07/21 05:05 03/06/21 15:15 Lab Results-Last 24 Hrs: Lab Results-Last 24 Hours 03/06/21 03/06/21 03/06/21 Range/Units 15:11 15:15 15:15 WBC 7.9 (4.0-10.5) K/mm3 RBC 4.51 (4.1-5.4) M/mm3 Hgb 13.4 (12.0-16.0) gm/dl Hct 42.6 (35-47) % MCV 94.5 (78-100) fl MCH 29.7 (26-32) pg MCHC 31.5 L (32-36) g/dl RDW 14.0 (11.5-14.0) % Plt Count 182 (150-450) K/mm3 MPV 13.5 H (7.5-11.0) fl Gran % 51.6 (36.0-66.0) % Eos # (Auto) 0.15 (0-0.5) Absolute Lymphs (auto) 2.81 (1.0-4.6) Absolute Monos (auto) 0.82 (0.0-1.3) Lymphocytes % 35.8 (24.0-44.0) % Monocytes % 10.4 (0.0-12.0) % Eosinophils % 1.9 (0.00-5.0) % Basophils % 0.3 (0.0-0.4) % Absolute Granulocytes 4.05 (1.4-6.9) Basophils # 0.02 (0-0.4) Sodium 137 (137-145) mmol/L Potassium 4.2 (3.5-5.1) mmol/L Chloride 98 (98-107) mmol/L Carbon Dioxide 32 H (22-30) mmol/L Anion Gap 11.7 (5-15) MEQ/L BUN 11 (7-17) mg/dL Creatinine 0.87 (0.52-1.04) mg/dL Estimated GFR > 60.0 ML/MIN Glucose 107 H (74-106) mg/dL Lactic Acid 1.2 (0.4-2.0) Calcium 10.6 H (8.4-10.2) mg/dL Total Bilirubin 0.60 (0.2-1.3) mg/dL AST 29 (14-36) U/L ALT 19 (0-35) U/L Alkaline Phosphatase 81 (38-126) U/L NT-Pro-B Natriuret Pep (0-1800) pg/mL Serum Total Protein 6.9 (6.3-8.2) g/dL Albumin 4.2 (3.5-5.0) g/dL Amylase 100 (30-110) U/L Lipase 185 (23-300) U/L Urine Color (YELLOW) Urine Appearance (CLEAR) Urine pH (5-6) Ur Specific [place] (1.005-1.025) Urine Protein (Negative) Urine Ketones (NEGATIVE) Urine Blood (0-5) Jh/ul Urine Nitrite (NEGATIVE) Urine Bilirubin (NEGATIVE) Urine Urobilinogen (0-1) mg/dL Ur Leukocyte Esterase (NEGATIVE) Urine WBC (Auto) (0-5) /HPF Urine RBC (Auto) (0-2) /HPF U Epithel Cells (Auto) (FEW) /HPF Urine Bacteria (Auto) (NEGATIVE) /HPF Urine Mucus (Auto) (NEGATIVE) /HPF Urine Culture Reflexed (NO) Urine Glucose (NEGATIVE) mg/dL SARS-CoV-2 (PCR) (NEGATIVE) 03/06/21 03/06/21 03/07/21 Range/Units 15:23 19:56 05:05 WBC 5.6 (4.0-10.5) K/mm3 RBC 4.25 (4.1-5.4) M/mm3 Hgb 12.6 (12.0-16.0) gm/dl Hct 40.0 (35-47) % MCV 94.1 (78-100) fl MCH 29.6 (26-32) pg MCHC 31.5 L (32-36) g/dl RDW 14.0 (11.5-14.0) % Plt Count 160 (150-450) K/mm3 MPV 12.1 H (7.5-11.0) fl Gran % 42.2 (36.0-66.0) % Eos # (Auto) 0.17 (0-0.5) Absolute Lymphs (auto) 2.32 (1.0-4.6) Absolute Monos (auto) 0.70 (0.0-1.3) Lymphocytes % 41.7 (24.0-44.0) % Monocytes % 12.6 H (0.0-12.0) % Eosinophils % 3.1 (0.00-5.0) % Basophils % 0.4 (0.0-0.4) % Absolute Granulocytes 2.35 (1.4-6.9) Basophils # 0.02 (0-0.4) Sodium (137-145) mmol/L Potassium (3.5-5.1) mmol/L Chloride (98-107) mmol/L Carbon Dioxide (22-30) mmol/L Anion Gap (5-15) MEQ/L BUN (7-17) mg/dL Creatinine (0.52-1.04) mg/dL Estimated GFR ML/MIN Glucose (74-106) mg/dL Lactic Acid (0.4-2.0) Calcium (8.4-10.2) mg/dL Total Bilirubin (0.2-1.3) mg/dL AST (14-36) U/L ALT (0-35) U/L Alkaline Phosphatase (38-126) U/L NT-Pro-B Natriuret Pep (0-1800) pg/mL Serum Total Protein (6.3-8.2) g/dL Albumin (3.5-5.0) g/dL Amylase (30-110) U/L Lipase (23-300) U/L Urine Color YELLOW (YELLOW) Urine Appearance SLIGHTLY CLOUDY (CLEAR) Urine pH 5.0 (5-6) Ur Specific [place] 1.010 (1.005-1.025) Urine Protein NEGATIVE (Negative) Urine Ketones NEGATIVE (NEGATIVE) Urine Blood NEGATIVE (0-5) Jh/ul Urine Nitrite NEGATIVE (NEGATIVE) Urine Bilirubin NEGATIVE (NEGATIVE) Urine Urobilinogen NEGATIVE (0-1) mg/dL Ur Leukocyte Esterase MODERATE (NEGATIVE) Urine WBC (Auto) 6-10 (0-5) /HPF Urine RBC (Auto) 3-5 (0-2) /HPF U Epithel Cells (Auto) RARE (FEW) /HPF Urine Bacteria (Auto) RARE (NEGATIVE) /HPF Urine Mucus (Auto) SLIGHT (NEGATIVE) /HPF Urine Culture Reflexed NO (NO) Urine Glucose NEGATIVE (NEGATIVE) mg/dL SARS-CoV-2 (PCR) NEGATIVE (NEGATIVE) 03/07/21 Range/Units 05:05 WBC (4.0-10.5) K/mm3 RBC (4.1-5.4) M/mm3 Hgb (12.0-16.0) gm/dl Hct (35-47) % MCV (78-100) fl MCH (26-32) pg MCHC (32-36) g/dl RDW (11.5-14.0) % Plt Count (150-450) K/mm3 MPV (7.5-11.0) fl Gran % (36.0-66.0) % Eos # (Auto) (0-0.5) Absolute Lymphs (auto) (1.0-4.6) Absolute Monos (auto) (0.0-1.3) Lymphocytes % (24.0-44.0) % Monocytes % (0.0-12.0) % Eosinophils % (0.00-5.0) % Basophils % (0.0-0.4) % Absolute Granulocytes (1.4-6.9) Basophils # (0-0.4) Sodium (137-145) mmol/L Potassium (3.5-5.1) mmol/L Chloride (98-107) mmol/L Carbon Dioxide (22-30) mmol/L Anion Gap (5-15) MEQ/L BUN (7-17) mg/dL Creatinine (0.52-1.04) mg/dL Estimated GFR ML/MIN Glucose (74-106) mg/dL Lactic Acid (0.4-2.0) Calcium (8.4-10.2) mg/dL Total Bilirubin (0.2-1.3) mg/dL AST (14-36) U/L ALT (0-35) U/L Alkaline Phosphatase (38-126) U/L NT-Pro-B Natriuret Pep 706 (0-1800) pg/mL Serum Total Protein (6.3-8.2) g/dL Albumin (3.5-5.0) g/dL Amylase (30-110) U/L Lipase (23-300) U/L Urine Color (YELLOW) Urine Appearance (CLEAR) Urine pH (5-6) Ur Specific [place] (1.005-1.025) Urine Protein (Negative) Urine Ketones (NEGATIVE) Urine Blood (0-5) Jh/ul Urine Nitrite (NEGATIVE) Urine Bilirubin (NEGATIVE) Urine Urobilinogen (0-1) mg/dL Ur Leukocyte Esterase (NEGATIVE) Urine WBC (Auto) (0-5) /HPF Urine RBC (Auto) (0-2) /HPF U Epithel Cells (Auto) (FEW) /HPF Urine Bacteria (Auto) (NEGATIVE) /HPF Urine Mucus (Auto) (NEGATIVE) /HPF Urine Culture Reflexed (NO) Urine Glucose (NEGATIVE) mg/dL SARS-CoV-2 (PCR) (NEGATIVE) - Radiology Exams Ordered Rad Exams-Entire Visit: Radiology Procedures Category Date Time Status ABDOMEN AND PELVIS W/0 CONTRAS [CT] Stat Exams 03/06/21 15:12 Completed - Discharge Discharge Date: 03/07/21 Disposition: Home, Self-Care Condition: Stable Prescriptions: New ALPRAZolam 0.25 MG [xanAX 0.25 MG] 0.25 mg PO BID PRN #20 tablet MDD 2 a day Continue Famotidine [Pepcid] 10 mg PO BID ALPRAZolam 0.25 MG [xanAX 0.25 MG] 0.25 mg PO BID PRN PRN PRN Reason: Anxiety Lisinopril 10 mg [Zestril 10 MG] 10 mg PO BID Amlodipine Besylate [Norvasc] 5 mg PO DAILY Carbamide Peroxide [Debrox] 5 drops OT BID Acetaminophen [Tylenol] 650 mg PO Q4HPRN PRN PRN Reason: Pain Additional Instructions: TALK WITH ERIC CABRALES AT [phone] EXT [id number] ABOUT INSURANCE OPTIONS AVAILABLE FOR PRESCRIPTION COVERAGE TAKE YOUR NORVASC IN THE AM AND THE LISINOPRIL IN THE PM Follow up with: ELAINE NICOLE MD [Primary Care Provider] - 5 Days
[2021-03-07] MEDS ORDERED: Pepcid 20 MG PO SCH (22:00)
[2021-03-08] MEDS ORDERED: Zestril 10 MG PO SCH (10:00)
== END 2021-03-07 14:20 | disposition home or self-care (01) ==
LOC: ED 13:31 → MED SURG 21:49
PROVIDERS: ADMIT General Practice; ATTEND General Practice
DX: I16.0 Hypertensive urgency (principal); R10.32 Left lower quadrant pain; R10.12 Left upper quadrant pain; Z79.899 Other long term (current) drug therapy; I10 Essential (primary) hypertension; J44.9 Chronic obstructive pulmonary disease, unspecified; Z20.822 Contact with and (suspected) exposure to COVID-19; R51.9 Headache, unspecified
CPT/HCPCS: 36000; 36415; 74176; 80053; 81001; 82150; 83605; 83690; 83880; 85025; 93268; 96374; 96375; 96376; 99285; 99291; G0378; U0003; J0360; J2060; A9270-GY

== ENCOUNTER 2021-05-03 09:18 | Emergency (ER) | payer MEDICARE, OTHER ==
[2021-05-03 09:42] VITALS: BP 183/66; PULSE 60; O2SAT 99
--- NOTE | 2021-05-03 09:44 | ERPHSYRPT ---
- History of Present Illness Time Seen by Provider: 05/03/21 09:40 Source: patient, family Exam Limitations: no limitations Physician History: Patient is 81-year-old female with significant past medical history of osteoporosis osteoarthritis generalized hypertension was lifting approximately 5 to 7 pounds of apple on her right side with tilting on the right side to 3 days ago and since then she started having a pain on her right lower back radiating to the right thigh and right groin area she denies any loss of sensation on thigh or leg on the right side. She also denies any urinary incontinence or fecal incontinence. She denies any fall. Timing/Duration: day(s) (2-3 days ago) Method of Injury: lifting Quality: aching Back Pain Location: lumbar spine Back Pain Radiation: buttocks Severity of Pain-Max: mild Severity of Pain-Current: moderate Modifying Factors: Improves With: nothing Associated Symptoms: denies symptoms Allergies/Adverse Reactions: iodine Allergy (Unknown, Verified 05/03/21 09:30) Penicillins Allergy (Unknown, Verified 05/03/21 09:30) Nausea cephalexin [From Keflex] Allergy (Verified 05/03/21 09:30) Nausea latex Allergy (Verified 05/03/21 09:30) levofloxacin [From Levaquin] Allergy (Verified 05/03/21 09:30) Stomach Cramps sulfamethoxazole [From Bactrim] Allergy (Verified 05/03/21 09:30) trimethoprim [From Bactrim] Allergy (Verified 05/03/21 09:30) Stomach Pain Home Medications: ALPRAZolam 0.25 MG [xanAX 0.25 MG] 0.25 mg PO BID PRN PRN 03/07/21 [History] Acetaminophen [Tylenol] 650 mg PO Q4HPRN PRN 03/07/21 [History] Amlodipine Besylate [Norvasc] 5 mg PO DAILY 03/07/21 [History] Carbamide Peroxide [Debrox] 5 drops OT BID 03/07/21 [History] Hx Tetanus, Diphtheria Vaccination/Date Given: No Hx Influenza Vaccination/Date Given: Yes Hx Pneumococcal Vaccination/Date Given: No Travel Risk - Vaccine Status Have you recieved a Covid-19 vaccination: No - Review of Systems Constitutional: No Fever, No Chills Eyes: No Symptoms Ears, Nose, & Throat: No Symptoms Respiratory: No Cough, No Dyspnea Cardiac: No Chest Pain, No Edema, No Syncope Abdominal/Gastrointestinal: No Abdominal Pain, No Nausea, No Vomiting, No Diarrhea Genitourinary Symptoms: No Dysuria Musculoskeletal: Back Pain, No Neck Pain, No Fall Skin: No Rash Neurological: No Dizziness, No Focal Weakness, No Sensory Changes Psychological: No Symptoms Endocrine: No Symptoms All Other Systems: Reviewed and Negative - Past Medical History Pertinent Past Medical History: Yes Neurological History: No Pertinent History ENT History: No Pertinent History Cardiac History: Hypertension Respiratory History: COPD Endocrine Medical History: No Pertinent History Musculoskeletal History: No Pertinent History GI Medical History: GERD, Hernia History: Other Psycho-Social History: Anxiety Female Reproductive Disorders: No Pertinent History Other Medical History: frequent UTI's, had TB twice- 1966 and 1969 - Past Surgical History Past Surgical History: Yes Neuro Surgical History: No Pertinent History Cardiac: No Pertinent History, Pacemaker Respiratory: No Pertinent History Gastrointestinal: Appendectomy, Bowel Surgery, Colon Resection, Hernia Repair Genitourinary: No Pertinent History Musculoskeletal: No Pertinent History Female Surgical History: Hysterectomy Other Surgical History: september colon resection , "we were never told if it was cancer or not" "Dr Pelayo", Have had polypectomy since", states "throat stretched twice" - Social History Smoking Status: Never smoker Exposure to second hand smoke: No Alcohol Use: None Drug Use: none Patient Lives Alone: Yes Significant Family History: no pertinent family hx - Nursing Vital Signs Nursing Vital Signs: Initial Vital Signs Temperature 97.6 F 05/03/21 09:31 Pulse Rate 60 05/03/21 09:31 Respiratory Rate 18 05/03/21 09:31 Blood Pressure 183/66 05/03/21 09:31 O2 Sat by Pulse Oximetry 99 05/03/21 09:31 Pain Scale Pain Intensity 7 - Physical Exam General Appearance: no apparent distress, alert Eye Exam: PERRL/EOMI, eyes nml inspection Neck Exam: normal inspection, non-tender, supple, full range of motion, No meningismus, No midline tenderness Respiratory Exam: normal breath sounds, lungs clear, No respiratory distress Cardiovascular Exam: regular rate/rhythm, normal heart sounds Gastrointestinal Exam: soft, No tenderness, No mass Back Exam: decreased range of motion, muscle spasm, No CVA tenderness, No vertebral tenderness, No rash, No point tenderness Extremity Exam: normal inspection, normal range of motion, No calf tenderness, No pedal edema Neurologic Exam: alert, oriented x 3, cooperative, plywood matcher II-XII nml as tested, normal mood/affect, nml station & gait, sensation nml, No motor deficits Skin Exam: normal color, warm, dry, No rash - Course Nursing assessment & vital signs reviewed: Yes - Radiology Exams L-Spine X-ray Interpretation: Reviewed by me Ordered Tests: Active Orders 24 hr Category Date Time Status LUMBAR LIMITED (2 OR 3 VIEWS) Stat Exams 05/03/21 09:39 Ordered Medication Summary Discontinued Medications Generic Name Dose Route Start Last Admin Trade Name Andersonq PRN Reason Stop Dose Admin Ketorolac Tromethamine 60 mg 05/03/21 10:00 Toradol 30 Mg Injection IM 05/03/21 10:01 STAT ONE Orphenadrine Citrate 60 mg 05/03/21 10:00 Norflex 60 Mg/2 Ml IM 05/03/21 10:01 STAT ONE - Progress Progress: improved, pain not gone completely Counseled pt/family regarding: diagnosis, need for follow-up, rad results - Departure Departure Disposition: Home Clinical Impression: Lumbalgia Qualifiers: Chronicity: acute Back pain laterality: right Sciatica presence: with sciatica Sciatica laterality: sciatica of right side Qualified Code(s): M54.41 - Lumbago with sciatica, right side Condition: Stable Critical Care Time: No Referrals: ELAINE NICOLE MD [Primary Care Provider] - Follow Up with PCP/3 days Instructions: Low Back Pain (DC), Sciatica (DC) Additional Instructions: Discharge/Care Plan ROBERTO THOMAS was seen on 05/03/21 in the Emergency Room. The patient was counseled regarding Diagnosis,Lab results, Imaging studies, need for follow up and when to return to the Emergency Room. Prescriptions given: Discharge Note I have spoken with the patient and/or caregivers. I have explained the patient's condition, diagnosis and treatment plan based on the information available to me at this time. I have answered the patient's and/or caregiver's questions and addressed any concerns. The patient and/or caregivers have as good understanding of the patient's diagnosis, condition and treatment plan as can be expected at this point. The vital signs have been stable. The patient's condition is stable and appropriate for discharge from the emergency department. The patient will pursue further outpatient evaluation with the primary care physician or other designated or consulting physician as outlined in the discharge instructions. The patient and/or caregivers are agreeable to this plan of care and follow-up instructions have been explained in detail. The patient and/or caregivers have received these instruction. The patient/and or caregivers are aware that any significant change in condition or worsening of symptoms should prompt an immediate return to this or the closest emergency department or call 911. WILLIAMROBERTO was seen on 05/03/21 n the Emergency Room. At that time you were treated for an emergent condition, during your visit Laboratory, Radiology and/or other procedures may have been ordered. It is very important that you follow-up with your Primary Care Physician ELAINE NICOLE within the next 24-48 hours to review your Emergency Room visit and the final results of testing that was ordered. Some test results such as Urine Cultures, Blood Cultures, and other cultures if ordered will not be finalized for 24-48 hours. If you do not have a Primary Care Provider please call the medical records department at [phone] ext [phone] to obtain a copy of your results or you may sign into our patient portal to obtain these results by visiting us @ [email or web address] and completing the following steps: 1. Click on the Patient Portal link 2. Click the Patient Self Enrollment Link to complete the enrollment form and entering your 3. Once the enrollment form is completed you will receive an email with a temporary ID and password at the email address you provided. 4. Next choose a user name and password. Your user name must be at least 4 characters long and your password must be at least 4 characters long. 5. Choose a security question from the list and provide your answer to the question. If you already have signed into the Health Portal you may access your Health Care Information 15/02 by the following steps: 1. Login to our website @ [email or web address] 2. Enter your original user name and password. FAQS The [facility] Health Portal is an online tool that contains your Lab Results, Radiology Reports, Visit History, Discharge Instructions and Health Summary Lab and Radiology Results will not be available for 72 hours on the portal. The Portal is a secure site, passwords are encryted and URLs are re-written so they cannot be copied and pasted. You and authorized family members are the only ones who can access your Portal. Also there is a timeout feature that protects your information if you leave the Portal page open. If you have technical difficulty please use the Contact Us link on the page this will allow you to submit any questions you have regarding the Portal or you may contact the Medical Record Department at [phone] ext [phone]. Prescriptions: Naproxen 375 mg [Naprosyn 375 mg] 375 mg PO Q8H #15 tablet
[2021-05-03] MEDS ORDERED: Norflex 60 MG/2 ML IM ONE (10:00)
[2021-05-03] MEDS ORDERED: Norflex 60 MG/2 ML ONE (10:03)
[2021-05-03] MEDS ORDERED: TORAdol 30 mg Injection ONE (10:03)
[2021-05-03] MEDS: TORAdol 30 mg Injection IM ONE ×2 (10:12→10:13)
--- NOTE | 2021-05-03 19:35 | XRAY ---
Indication: Right back pain. Comparison: None 3 view lumbar spine demonstrates 5 lumbar segments in normal alignment with mild osteopenia, mild/moderate multilevel thoracolumbar degenerative spondylosis, remote appearing minimal L3 superior endplate fracture with less than 25% height loss, and mild scattered vascular calcifications. No other bony, articular, or soft tissue abnormalities. Impression: Nonacute lumbar spine with chronic features.
== END 2021-05-03 10:23 | disposition home or self-care (01) ==
LOC: ED 09:18
DX: M54.41 Lumbago with sciatica, right side (principal); I10 Essential (primary) hypertension; X50.0XXA Overexertion from strenuous movement or load, initial encounter; Z79.899 Other long term (current) drug therapy
CPT/HCPCS: 72100; 96372; 99284; J1885; J2360

== ENCOUNTER 2022-07-11 09:02 | Observation (INO) | payer MEDICARE, OTHER ==
[2022-07-11 09:30] LABS: Bacteria RARE /HPF (NEGATIVE); Epithelial Cells RARE /HPF (FEW); Mucus SLIGHT /HPF (NEGATIVE)
[2022-07-11 09:32] LABS: Appearance CLEAR (CLEAR); Bilirubin NEGATIVE (NEGATIVE); Dipstick done @ ? MAIN LAB; Glucose NEGATIVE (NEGATIVE); Ketones NEGATIVE (NEGATIVE); Nitrite NEGATIVE (NEGATIVE); Protein,Urine Dip NEGATIVE (Negative); RBC NEGATIVE Ery/ul (0-5); Specific Gravity 1.0165 (1.005-1.025); Urobilinogen 0.2 mg/dL (0-1)
[2022-07-11 09:54] LABS: Basophil (Absolute #) 0.04 x10^3/uL (0-0.4); Eosinophil % 1.6 % (0.00-5.0); Hematocrit 41.7 % (35-47); Hemoglobin 13.2 g/dL (12.0-16.0); Lymphocyte (Absolute #) 2.12 x10^3/uL (1.0-4.6); Lymphocytes % 34.8 % (24.0-44.0); Mean Cell Volume 93.5 fL (78-100); Mean Corpuscular Hemoglobin 29.6 pg (26-32); Mean Corpuscular Hgb Concent. 31.7 g/dL (32-36); Mean Platelet Volume 11.8 fL (7.5-11.0); Monocyte (Absolute #) 0.51 x10^3/uL (0.0-1.3); Monocytes % 8.4 % (0.0-12.0); Neutrophil % 54.2 % (36.0-66.0); Platelet Count 170 x10^3/uL (150-450); Red Blood Count 4.46 x10^6/uL (4.1-5.4); Red Cell Distribution Width 13.4 % (11.5-14.0); White Blood Count 6.1 x10^3/uL (4.0-10.5)
[2022-07-11] MEDS ORDERED: Sodium Chloride 0.9% 500 ML 500 ML IV ONE (10:21)
[2022-07-11 10:22] LABS: ALBUMIN 4.4 g/dL (3.5-5.0); ALKALINE PHOSPHATASE 85 U/L (38-126); ANION GAP 8.7 MEQ/L (5-15); BLOOD UREA NITROGEN 10 mg/dL (7-17); CHLORIDE 105 mmol/L (98-107); Calcium 10.2 mg/dL (8.4-10.2); Carbon Dioxide 30 mmol/L (22-30); Creatinine 1 0.89 mg/dL (0.52-1.04); EST GLOMERULAR FILTRATION RATE > 60.0 ML/MIN; Glucose 105 mg/dL (74-106); Potassium 4.2 mmol/L (3.5-5.1); SGOT/AST 25 U/L (14-36); SGPT/ALT 18 U/L (0-35); SODIUM 140 mmol/L (137-145); Total Protein 7.2 g/dL (6.3-8.2)
[2022-07-11 10:24] LABS: Urine Cultured Indicated? YES
[2022-07-11 10:59] LABS: INFLUENZA A NEGATIVE (NEGATIVE); INFLUENZA B NEGATIVE (NEGATIVE); RESPIRATORY SYNCTIAL VIRUS NEGATIVE (Negative); SARS-CoV-2 Xpert Express NEGATIVE (NEGATIVE)
[2022-07-11] MEDS ORDERED: Ecotrin 325 MG PO STA (13:13)
--- NOTE | 2022-07-11 13:13 | ERPHSYRPT ---
- History of Present Illness Time Seen by Provider: 07/11/22 10:19 Source: patient, family Exam Limitations: no limitations Patient Subjective Stated Complaint: States, "I just don't feel right" since yesterday. Patient denies pain or dizziness. Patient states her head feels strange but is unable to describe in what way. Started a new HTN medication on 07/02/22. Patient has trouble swallowing medications at this time; has had to have her throat stretched twice. Patient just recently started crushing her medications. Triage Nursing Assessment: Patient ambulated back to ED without difficulties. She is alert and oriented. No SOB; very talkative. Denies fall or injury. NILA VELIZ. Physician History: 82 years old female with history of hypertension, migraine, COPD, anxiety presented in the ER with chief complaint of left arm numbness off and on since yesterday. Patient reports she woke up yesterday morning with numbness in the left arm without any weakness which improved later on and this morning again woke up with numbness which is resolved prior to arrival. She denies any other focal numbness tingling or weakness. No difficulty speech but does report some funny feeling in the head which she cannot explain very well. Denies any difficulty ambulation. No chest pain palpitations or shortness of breath. Denies feeling dizzy or lightheaded. No fever chills reported. Timing/Duration: yesterday, intermittent, improved Severity: mild, moderate Character of Deficits: altered sensation Deficits: no difficulties Baseline/Normal Cognition: alert oriented x 3 Current Cognition: alert oriented x 3 Baseline Gait: uses walker Associated Symptoms: fatigue, No confusion, No fever, No chills, No loss of consciousness, No nausea, No vomiting, No weakness, No muscle spasms, No numbness/tingling in legs/feet, No ringing in ears, No seizures, No slurred speech, No trouble walking, No vision changes, No chest pain, No headache Allergies/Adverse Reactions: iodine Allergy (Unknown, Verified 07/11/22 09:24) Penicillins Allergy (Unknown, Verified 07/11/22 09:24) Nausea amoxicillin Allergy (Verified 07/11/22 15:10) cephalexin [From Keflex] Allergy (Verified 07/11/22 09:24) Nausea latex Allergy (Verified 07/11/22 09:24) levofloxacin [From Levaquin] Allergy (Verified 07/11/22 09:24) Stomach Cramps sulfamethoxazole [From Bactrim] Allergy (Verified 07/11/22 09:24) trimethoprim [From Bactrim] Allergy (Verified 07/11/22 09:24) Stomach Pain Home Medications: ALPRAZolam 0.25 MG [xanAX 0.25 MG] 0.25 mg PO BID PRN PRN 03/07/21 [History] Amlodipine Besylate [Norvasc] 2.5 mg PO DAILY 03/07/21 [History] Lisinopril 10 mg [Zestril 10 MG] 10 mg PO DAILY 07/11/22 [History] Metoprolol Tartrate 25 mg [Lopressor 25MG Tab] 1 tab PO BID 07/11/22 [History] Hx Tetanus, Diphtheria Vaccination/Date Given: Yes Hx Influenza Vaccination/Date Given: No Hx Pneumococcal Vaccination/Date Given: No Immunizations Up to Date: Yes Travel Risk - International Travel Have you traveled outside of the country in past 3 weeks: No - Coronavirus Screening Are you exhibiting any of the following symptoms?: No Close contact with a COVID-19 positive Pt in past 14-21 Days: No - Vaccine Status Have you recieved a Covid-19 vaccination: No - Review of Systems Constitutional: Fatigue Eyes: No Symptoms Ears, Nose, & Throat: No Symptoms Respiratory: No Symptoms Cardiac: No Symptoms Abdominal/Gastrointestinal: No Symptoms Genitourinary Symptoms: No Symptoms Musculoskeletal: No Symptoms Skin: No Symptoms Neurological: Sensory Changes Psychological: Anxiety Endocrine: No Symptoms Hematologic/Lymphatic: No Symptoms Immunological/Allergic: No Symptoms - Past Medical History Pertinent Past Medical History: Yes Neurological History: No Pertinent History ENT History: No Pertinent History Cardiac History: Hypertension Respiratory History: COPD Endocrine Medical History: No Pertinent History Musculoskeletal History: No Pertinent History GI Medical History: GERD, Hernia History: Other Psycho-Social History: Anxiety Female Reproductive Disorders: No Pertinent History Other Medical History: frequent UTI's, had TB twice- 1966 and 1969 - Past Surgical History Past Surgical History: Yes Neuro Surgical History: No Pertinent History Cardiac: Pacemaker Respiratory: No Pertinent History Gastrointestinal: Appendectomy, Bowel Surgery, Colon Resection, Hernia Repair Genitourinary: No Pertinent History Musculoskeletal: No Pertinent History Female Surgical History: Hysterectomy Other Surgical History: polypectomy, states "throat stretched twice" - Social History Smoking Status: Never smoker Exposure to second hand smoke: No Alcohol Use: None Drug Use: none Patient Lives Alone: Yes Significant Family History: no pertinent family hx - Nursing Vital Signs Nursing Vital Signs: Initial Vital Signs Temperature 98.4 F 07/11/22 09:03 Pulse Rate 60 07/11/22 09:03 Respiratory Rate 16 07/11/22 09:03 Blood Pressure 200/71 07/11/22 09:03 O2 Sat by Pulse Oximetry 97 07/11/22 09:03 Pain Scale Pain Intensity 0 - [place] Coma Scale Best Eye Response ([place]): (4) open spontaneously Best Verbal Response ([place]): (5) oriented Best Motor Response ([place]): (6) obeys commands [place] Total: 15 - Physical Exam General Appearance: no apparent distress, alert, anxiety Eye Exam: bilateral eye: normal inspection, PERRL, EOMI Ears, Nose, Throat Exam: normal ENT inspection, TMs normal, pharynx normal, moist mucous membranes Neck Exam: normal inspection, non-tender, supple, full range of motion, No meningismus Respiratory: normal breath sounds, lungs clear Cardiovascular: regular rate/rhythm, normal heart sounds Gastrointestinal: soft, normal bowel sounds, No tenderness Back Exam: normal inspection Extremity Exam: normal inspection, normal range of motion Mental Status: alert, oriented x 3, cooperative log feeder Exam: normal hearing, normal speech, PERRL, No facial asymmetry, No facial droop Coordination/Gait: normal finger to nose, normal cerebellar function Motor/Sensory: no motor deficit, no sensory deficit, pronator drift (L), No no pronator drift DTR: bicep (R): 2+, bicep (L): 2+, tricep (R): 2+, tricep (L): 2+, knee (R): 2+, knee (L): 2+ Skin Exam: normal color SpO2 Interpretation: normal SpO2: 99 O2 Delivery: Room Air Ordered Tests: Medication Summary Discontinued Medications Generic Name Dose Route Start Last Admin Trade Name Freq PRN Reason Stop Dose Admin Acetaminophen 500 mg 07/11/22 13:20 07/11/22 13:27 Acetaminophen 500 Mg Tablet PO 07/11/22 13:21 500 mg STAT STA Administration Acetaminophen Confirm 07/11/22 13:26 Acetaminophen 500 Mg Tablet Administered 07/11/22 13:27 Dose 500 mg .ROUTE .STK-MED ONE Acetaminophen 650 mg 07/11/22 14:59 07/13/22 04:38 Acetaminophen 325 Mg Tablet PO 08/10/22 14:58 650 mg Q4H PRN PRN Administration PAIN AND/OR FEVER Albuterol/Ipratropium 3 ml 07/11/22 14:59 Ipratropium/Albuterol Sulfate 3 Ml Ampul.Neb IH 08/10/22 14:58 Q4HPRN PRN SHORTNESS OF BREATH/WHEEZING Alprazolam 0.25 mg 07/11/22 17:16 Alprazolam 0.25 Mg Tablet PO 08/10/22 17:15 BID PRN PRN ANXIETY Alprazolam 0.5 mg 07/13/22 07:34 07/13/22 12:49 Alprazolam 0.5 Mg Tablet PO 07/13/22 07:35 Not Given ONCE ONE Amlodipine Besylate 2.5 mg 07/12/22 10:00 07/13/22 08:30 Amlodipine Besylate 5 Mg Tablet PO 08/11/22 09:59 2.5 mg DAILY BRANNON Administration Aspirin 325 mg 07/11/22 13:13 07/11/22 13:24 Aspirin 325 Mg Tablet.Ec PO 07/11/22 13:14 Not Given ONCE STA Famotidine 10 mg 07/11/22 22:00 07/13/22 08:31 Famotidine 20 Mg Tablet PO 08/10/22 21:59 Not Given BID BRANNON Hydralazine HCl 10 mg 07/11/22 13:41 07/11/22 14:26 Hydralazine Hcl 20 Mg/Ml Vial IV 07/11/22 13:42 10 mg STAT ONE Administration Hydralazine HCl Confirm 07/11/22 13:52 Hydralazine Hcl 20 Mg/Ml Vial Administered 07/11/22 13:53 Dose 20 mg .ROUTE .STK-MED ONE Sodium Chloride 500 mls @ 500 mls/hr 07/11/22 10:21 07/11/22 10:35 Sodium Chloride 0.9% 500 Ml IV 07/11/22 11:20 Not Given .Q1H ONE Lisinopril 10 mg 07/12/22 10:00 07/13/22 08:31 Lisinopril 10 Mg Tablet PO 08/11/22 09:59 10 mg DAILY BRANNON Administration Metoprolol Tartrate 25 mg 07/11/22 22:00 07/13/22 08:29 Metoprolol Tartrate 25 Mg Tab PO 08/10/22 21:59 25 mg BID BRANNON Administration Nitrofurantoin Macrocrystals 100 mg 07/11/22 14:37 07/11/22 14:40 Nitrofurantoin Macro 100 Mg Capsule PO 08/10/22 14:36 100 mg BIDWM BRANNON Administration Nitrofurantoin Macrocrystals Confirm 07/11/22 14:38 Nitrofurantoin Macro 100 Mg Capsule Administered 07/11/22 14:39 Dose 100 mg .ROUTE .STK-MED ONE Ondansetron HCl 4 mg 07/11/22 14:59 Ondansetron Hcl 4 Mg/2 Ml Vial IV 08/10/22 14:58 Q6H PRN PRN NAUSEA/VOMITING Pantoprazole Sodium 40 mg 07/12/22 10:00 07/13/22 08:32 Pantoprazole 40 Mg Vial IV 08/11/22 09:59 40 mg Q24H10 BRANNON Administration Lab/Rad Data: Laboratory Result Diagrams 07/11/22 09:50 07/11/22 09:50 Laboratory Results 07/11/22 07/11/22 07/11/22 Range/Units 13:43 09:50 09:50 WBC (4.0-10.5) x10^3/uL RBC (4.1-5.4) x10^6/uL Hgb (12.0-16.0) g/dL Hct (35-47) % MCV (78-100) fL MCH (26-32) pg MCHC (32-36) g/dL RDW (11.5-14.0) % Plt Count (150-450) x10^3/uL MPV (7.5-11.0) fL Gran % (36.0-66.0) % Immature Gran % (Auto) (0.00-0.4) % Nucleat RBC Rel Count (0.00-0.1) % Eos # (Auto) (0-0.5) x10^3/uL Immature Gran # (Auto) (0.00-0.03) x10^3u/L Absolute Lymphs (auto) (1.0-4.6) x10^3/uL Absolute Monos (auto) (0.0-1.3) x10^3/uL Absolute Nucleated RBC (0.00-0.01) x10^3u/L Lymphocytes % (24.0-44.0) % Monocytes % (0.0-12.0) % Eosinophils % (0.00-5.0) % Basophils % (0.0-0.4) % Absolute Granulocytes (1.4-6.9) x10^3/uL Segmented Neutrophils (36.0-66.0) % Band Neutrophils (0.0-2.0) % Lymphocytes (Manual) (24-44) % Monocytes (Manual) (0.0-12.0) % Eosinophils (Manual) (0.00-3.0) % Basophils # (0-0.4) x10^3/uL Platelet Estimate (NORMAL) RBC Morphology Sodium (137-145) mmol/L Potassium (3.5-5.1) mmol/L Chloride (98-107) mmol/L Carbon Dioxide (22-30) mmol/L Anion Gap (5-15) MEQ/L BUN (7-17) mg/dL Creatinine (0.52-1.04) mg/dL Estimated GFR ML/MIN Glucose (74-106) mg/dL Calcium (8.4-10.2) mg/dL Magnesium 2.0 (1.6-2.3) mg/dL Total Bilirubin (0.2-1.3) mg/dL AST (14-36) U/L ALT (0-35) U/L Alkaline Phosphatase (38-126) U/L Troponin I < 0.012 0.013 (0.000-0.034) ng/mL NT-Pro-B Natriuret Pep 595 (0-1800) pg/mL Serum Total Protein (6.3-8.2) g/dL Albumin (3.5-5.0) g/dL Urinalys Dipstick Clnc Urine Color (YELLOW) Urine Appearance (CLEAR) Urine pH (5-6) Ur Specific [place] (1.005-1.025) POC Urine Protein Conf (Negative) Urine Ketones (NEGATIVE) Urine Nitrite (NEGATIVE) Urine Bilirubin (NEGATIVE) Urine Urobilinogen (0-1) mg/dL Urine Leukocytes (NEGATIVE) Urine WBC (Auto) (0-5) /HPF Urine RBC (Auto) (0-2) /HPF U Epithel Cells (Auto) (FEW) /HPF Urine Bacteria (Auto) (NEGATIVE) /HPF Urine RBC (0-5) Jh/ul Urine Mucus (Auto) (NEGATIVE) /HPF Ur Culture Indicated? Urine Glucose (NEGATIVE) mg/dL 07/11/22 07/11/22 07/11/22 Range/Units 09:50 09:50 09:12 WBC 6.1 (4.0-10.5) x10^3/uL RBC 4.46 (4.1-5.4) x10^6/uL Hgb 13.2 (12.0-16.0) g/dL Hct 41.7 (35-47) % MCV 93.5 (78-100) fL MCH 29.6 (26-32) pg MCHC 31.7 L (32-36) g/dL RDW 13.4 (11.5-14.0) % Plt Count 170 (150-450) x10^3/uL MPV 11.8 H (7.5-11.0) fL Gran % 54.2 (36.0-66.0) % Immature Gran % (Auto) 0.3 (0.00-0.4) % Nucleat RBC Rel Count 0.0 (0.00-0.1) % Eos # (Auto) 0.10 (0-0.5) x10^3/uL Immature Gran # (Auto) 0.02 (0.00-0.03) x10^3u/L Absolute Lymphs (auto) 2.12 (1.0-4.6) x10^3/uL Absolute Monos (auto) 0.51 (0.0-1.3) x10^3/uL Absolute Nucleated RBC 0.00 (0.00-0.01) x10^3u/L Lymphocytes % 34.8 (24.0-44.0) % Monocytes % 8.4 (0.0-12.0) % Eosinophils % 1.6 (0.00-5.0) % Basophils % 0.7 (0.0-0.4) % Absolute Granulocytes 3.30 (1.4-6.9) x10^3/uL Segmented Neutrophils 54 (36.0-66.0) % Band Neutrophils 2 (0.0-2.0) % Lymphocytes (Manual) 35 (24-44) % Monocytes (Manual) 8 (0.0-12.0) % Eosinophils (Manual) 1 (0.00-3.0) % Basophils # 0.04 (0-0.4) x10^3/uL Platelet Estimate NORMAL (NORMAL) RBC Morphology NORMAL Sodium 140 (137-145) mmol/L Potassium 4.2 (3.5-5.1) mmol/L Chloride 105 (98-107) mmol/L Carbon Dioxide 30 (22-30) mmol/L Anion Gap 8.7 (5-15) MEQ/L BUN 10 (7-17) mg/dL Creatinine 0.89 (0.52-1.04) mg/dL Estimated GFR > 60.0 ML/MIN Glucose 105 (74-106) mg/dL Calcium 10.2 (8.4-10.2) mg/dL Magnesium (1.6-2.3) mg/dL Total Bilirubin 0.80 (0.2-1.3) mg/dL AST 25 (14-36) U/L ALT 18 (0-35) U/L Alkaline Phosphatase 85 (38-126) U/L Troponin I (0.000-0.034) ng/mL NT-Pro-B Natriuret Pep (0-1800) pg/mL Serum Total Protein 7.2 (6.3-8.2) g/dL Albumin 4.4 (3.5-5.0) g/dL Urinalys Dipstick Clnc MAIN LAB Urine Color YELLOW (YELLOW) Urine Appearance CLEAR (CLEAR) Urine pH 7.0 (5-6) Ur Specific [place] 1.0165 (1.005-1.025) POC Urine Protein Conf NEGATIVE (Negative) Urine Ketones NEGATIVE (NEGATIVE) Urine Nitrite NEGATIVE (NEGATIVE) Urine Bilirubin NEGATIVE (NEGATIVE) Urine Urobilinogen 0.2 (0-1) mg/dL Urine Leukocytes SMALL A (NEGATIVE) Urine WBC (Auto) 11-15 A (0-5) /HPF Urine RBC (Auto) 3-5 A (0-2) /HPF U Epithel Cells (Auto) RARE (FEW) /HPF Urine Bacteria (Auto) RARE (NEGATIVE) /HPF Urine RBC NEGATIVE (0-5) Jh/ul Urine Mucus (Auto) SLIGHT A (NEGATIVE) /HPF Ur Culture Indicated? YES Urine Glucose NEGATIVE (NEGATIVE) mg/dL - Progress Progress: unchanged Progress Note: 07/11/22 13:22 82-year-old is evaluated for left-sided numbness. Patient has a recent change in her blood pressure medications by cardiology and does have history of pacemaker placement. She thinks it probably because of that. I do not think metoprolol has anything to do with her numbness. Earlier her blood pressure was in 160s at home and has not taken her medications. I have obtained CT head and is negative. She has a mild drift to the left upper extremity. Baseline work- up fairly unremarkable except for some element of UTI. Obtained neurology consult who recommended MRI/MRA and further stroke work-up and starting her on aspirin. Patient would be admitted for further stroke work-up. 07/11/22 14:[address] Avery and patient is admitted for further work-up. He is started on Macrobid for UTI. Patient blood pressure was still in 190s, given hy dralazine one-time dose. Discussed with : Other Will see patient in: hospital (observation) Counseled pt/family regarding: lab results, diagnosis, need for follow-up, rad results - Departure Departure Disposition: Observation Clinical Impression: Stroke, UTI (urinary tract infection), Uncontrolled hypertension Condition: Stable Critical Care Time: No
[2022-07-11] MEDS ORDERED: TYLENOL EXTRA STRENGTH 500 MG PO STA (13:20)
[2022-07-11] MEDS ORDERED: TYLENOL EXTRA STRENGTH 500 MG ONE (13:26)
[2022-07-11] MEDS ORDERED: APRESOLINE 20 MG/ML INJ ONE (13:52)
[2022-07-11] MEDS: APRESOLINE 20 MG/ML INJ IV ONE ×2 (13:53→14:26)
[2022-07-11 13:58] LABS: BAND 2 % (0.0-2.0); Eosinophil 1 % (0.00-3.0); Lymphocytes 35 % (24-44); Monocyte 8 % (0.0-12.0); Platelet Estimate NORMAL (NORMAL); Total Cells Counted 100
[2022-07-11] MEDS ORDERED: Macrobid 100MG Capsule PO SCH (14:37)
[2022-07-11] MEDS ORDERED: Macrobid 100MG Capsule ONE (14:38)
[2022-07-11] MEDS ORDERED: DUONEB 0.5-3 MG/3 ml Neb IH PRN (14:59)
[2022-07-11] MEDS ORDERED: Zofran 4 MG/2 ML VIAL IV PRN (14:59)
[2022-07-11] MEDS ORDERED: xanAX 0.25 MG PO PRN (17:16)
--- NOTE | 2022-07-11 19:24 | XRAY ---
Indication: General weakness. Comparison: April 14, 2019 Portable chest better inflated and with right apical fibrosis/scarring. No focal infiltrate, consolidation, or large effusion. Heart not enlarged with new left dual lead pacemaker. Bony thorax intact again with mild osteopenia and degenerative changes. Impression: Continued nonacute chest with chronic features.
--- NOTE | 2022-07-11 19:24 | XRAY ---
Indication: Left arm numbness. Multiple contiguous axial images obtained through the head without contrast. Comparison: April 14, 2019 Age-appropriate global atrophy and mild/moderate periventricular degenerative micro-ischemia. No acute intracranial hemorrhage, abnormal extra-axial fluid collection, or mass effect. Fourth ventricle is midline without hydrocephalus. Bony calvarium intact. Visualized paranasal sinuses and mastoid air cells are clear. Impression: Continued nonacute senile brain. Comment: Preliminary interpretation made by [facility]. No critical discrepancy.
[2022-07-11] MEDS: Pepcid 20 MG PO SCH (21:49)
[2022-07-11] MEDS: Lopressor 25MG Tab PO SCH (21:50)
[2022-07-12] MEDS: TYLENOL 325 MG PO PRN ×2 (04:12→17:25)
[2022-07-12 05:52] LABS: Absolute Neutrophil Ct (ANC) 2.45 x10^3/uL (1.4-6.9); Basophil (Absolute #) 0.03 x10^3/uL (0-0.4); Eosinophil (Absolute #) 0.17 x10^3/uL (0-0.5); Hematocrit 37.5 % (35-47); Hemoglobin 12.1 g/dL (12.0-16.0); Lymphocyte (Absolute #) 2.34 x10^3/uL (1.0-4.6); Lymphocytes % 41.9 % (24.0-44.0); Mean Cell Volume 92.6 fL (78-100); Mean Corpuscular Hemoglobin 29.9 pg (26-32); Mean Corpuscular Hgb Concent. 32.3 g/dL (32-36); Mean Platelet Volume 12.5 fL (7.5-11.0); Monocyte (Absolute #) 0.59 x10^3/uL (0.0-1.3); Monocytes % 10.6 % (0.0-12.0); Neutrophil % 43.8 % (36.0-66.0); Platelet Count 152 x10^3/uL (150-450); Red Blood Count 4.05 x10^6/uL (4.1-5.4); Red Cell Distribution Width 13.8 % (11.5-14.0); White Blood Count 5.6 x10^3/uL (4.0-10.5)
[2022-07-12 06:00] LABS: ALBUMIN 3.4 g/dL (3.5-5.0); ALKALINE PHOSPHATASE 70 U/L (38-126); ANION GAP 5.9 MEQ/L (5-15); BLOOD UREA NITROGEN 13 mg/dL (7-17); CHLORIDE 106 mmol/L (98-107); Calcium 9.9 mg/dL (8.4-10.2); Carbon Dioxide 29 mmol/L (22-30); Creatinine 1 0.85 mg/dL (0.52-1.04); EST GLOMERULAR FILTRATION RATE > 60.0 ML/MIN; Glucose 116 mg/dL (74-106); Potassium 3.9 mmol/L (3.5-5.1); SGOT/AST 20 U/L (14-36); SGPT/ALT 15 U/L (0-35); SODIUM 137 mmol/L (137-145); Total Protein 5.8 g/dL (6.3-8.2)
[2022-07-12] MEDS: Lopressor 25MG Tab PO SCH ×2 (09:05→21:37)
[2022-07-12] MEDS: NORVASC 5 MG PO SCH (09:05)
[2022-07-12] MEDS: PROTONIX 40 MG IV IV SCH (09:06)
[2022-07-12] MEDS: Pepcid 20 MG PO SCH ×2 (09:06→21:37)
[2022-07-12] MEDS: Zestril 10 MG PO SCH (09:06)
--- NOTE | 2022-07-12 16:37 | PCM.HP ---
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 Denies other focal neurologic symptoms. PMHx includes HTN,pacemaker,Migraines,COPD,anxiety . Teleneuro visit completed in ER .Neurologist Dg Mild nondisabling stroke and advised MRI before discharge (please see complete visit note). Medications & Allergies Home Medications: Home Medication List ALPRAZolam 0.25 MG [xanAX 0.25 MG] 0.25 mg PO BID PRN PRN 03/07/21 [History Confirmed 07/11/22] Amlodipine Besylate [Norvasc] 2.5 mg PO DAILY 03/07/21 [History Confirmed 07/11/22] Famotidine [Pepcid] 10 mg PO BID #60 tablet 03/07/21 [Rx Confirmed 07/11/22] Lisinopril 10 mg [Zestril 10 MG] 10 mg PO DAILY 07/11/22 [History Confirmed 07/11/22] Metoprolol Tartrate 25 mg [Lopressor 25MG Tab] 1 tab PO BID 07/11/22 [History Confirmed 07/11/22] Allergies/Adverse Reactions: Allergies Allergy/AdvReac Type Severity Reaction Status Date / Time iodine Allergy Unknown Verified 07/11/22 09:24 Penicillins Allergy Unknown Nausea Verified 07/11/22 09:24 amoxicillin Allergy Verified 07/11/22 15:10 cephalexin [From Keflex] Allergy Nausea Verified 07/11/22 09:24 latex Allergy Verified 07/11/22 09:24 levofloxacin [From Levaquin] Allergy Stomach Verified 07/11/22 09:24 Cramps sulfamethoxazole Allergy Verified 07/11/22 09:24 [From Bactrim] trimethoprim [From Bactrim] Allergy Stomach Verified 07/11/22 09:24 Pain - Past Medical History Past Medical History: Yes Neurological History: No Pertinent History ENT History: No Pertinent History Cardiac History: Hypertension Respiratory History: COPD Endocrine Medical History: No Pertinent History Musculoskelatal History: No Pertinent History GI Medical History: 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), GERD, Hernia History: Other Pyscho-Social History: Anxiety Reproductive Disorders: No Pertinent History Comment: frequent UTI's, had TB twice- 1966 and 1970 - Female History Are you now?: No - Past Surgical History Past Surgical History: Yes Neuro Surgical History: No Pertinent History Cardiac History: Pacemaker Respiratory Surgery: No Pertinent History GI Surgical History: Appendectomy, Bowel Surgery, Colon Resection, Hernia Repair Genitourinary Surgical Hx: No Pertinent History Musculskeletal Surgical Hx: No Pertinent History Female Surgical History: Hysterectomy Other Surgical History: polypectomy, states "throat stretched twice" - Social History Smoking Status: Never smoker Exposure to second hand smoke: No Alcohol: None Drug Use: none Significant Family History: no pertinent family hx - Physical Exam Vital Signs: Vital Signs - 24 hr Temp Pulse Resp BP Pulse Ox 07/12/22 15:31 98.7 F 60 17 141/63 95 07/12/22 12:00 97.5 F 60 17 166/74 07/12/22 07:53 97.0 F 65 16 161/71 97 07/12/22 04:00 97.0 F 63 18 173/77 96 07/11/22 23:44 97.3 F 60 18 164/70 96 07/11/22 19:40 97.2 F 59 L 20 141/57 97 General Appearance: no apparent distress, other (daughter at bedside) Neurologic Exam: alert, oriented x 3, cooperative, wash test checker II-XII nml as tested, normal mood/affect, nml cerebellar function, nml station & gait, motor deficits, No motor weakness, No facial droop, No slurred speech, No aphasia, No dysarthria, No abnormal gait Eye Exam: eyes nml inspection Ears, Nose, Throat Exam: normal ENT inspection Neck Exam: normal inspection Respiratory Exam: normal breath sounds Cardiovascular Exam: regular rate/rhythm, murmur Gastrointestinal/Abdomen Exam: soft, normal bowel sounds, No tenderness Pelvic Exam: not done Rectal Exam: not done Back Exam: normal inspection Extremity Exam: normal inspection Skin Exam: normal color, warm, dry Results - Labs Lab/Micro Results: Lab Results-Last 24 Hours 07/11/22 07/11/22 07/12/22 Range/Units 17:28 21:46 05:29 WBC 5.6 (4.0-10.5) x10^3/uL RBC 4.05 L (4.1-5.4) x10^6/uL Hgb 12.1 (12.0-16.0) g/dL Hct 37.5 (35-47) % MCV 92.6 (78-100) fL MCH 29.9 (26-32) pg MCHC 32.3 (32-36) g/dL RDW 13.8 (11.5-14.0) % Plt Count 152 (150-450) x10^3/uL MPV 12.5 H (7.5-11.0) fL Gran % 43.8 (36.0-66.0) % Immature Gran % (Auto) 0.2 (0.00-0.4) % Nucleat RBC Rel Count 0.0 (0.00-0.1) % Eos # (Auto) 0.17 (0-0.5) x10^3/uL Immature Gran # (Auto) 0.01 (0.00-0.03) x10^3u/L Absolute Lymphs (auto) 2.34 (1.0-4.6) x10^3/uL Absolute Monos (auto) 0.59 (0.0-1.3) x10^3/uL Absolute Nucleated RBC 0.00 (0.00-0.01) x10^3u/L Lymphocytes % 41.9 (24.0-44.0) % Monocytes % 10.6 (0.0-12.0) % Eosinophils % 3.0 (0.00-5.0) % Basophils % 0.5 (0.0-0.4) % Absolute Granulocytes 2.45 (1.4-6.9) x10^3/uL Basophils # 0.03 (0-0.4) x10^3/uL Sodium (137-145) mmol/L Potassium (3.5-5.1) mmol/L Chloride (98-107) mmol/L Carbon Dioxide (22-30) mmol/L Anion Gap (5-15) MEQ/L BUN (7-17) mg/dL Creatinine (0.52-1.04) mg/dL Estimated GFR ML/MIN Glucose (74-106) mg/dL Calcium (8.4-10.2) mg/dL Total Bilirubin (0.2-1.3) mg/dL AST (14-36) U/L ALT (0-35) U/L Alkaline Phosphatase (38-126) U/L Troponin I < 0.012 0.013 (0.000-0.034) ng/mL Serum Total Protein (6.3-8.2) g/dL Albumin (3.5-5.0) g/dL 07/12/22 Range/Units 05:29 WBC (4.0-10.5) x10^3/uL RBC (4.1-5.4) x10^6/uL Hgb (12.0-16.0) g/dL Hct (35-47) % MCV (78-100) fL MCH (26-32) pg MCHC (32-36) g/dL RDW (11.5-14.0) % Plt Count (150-450) x10^3/uL MPV (7.5-11.0) fL Gran % (36.0-66.0) % Immature Gran % (Auto) (0.00-0.4) % Nucleat RBC Rel Count (0.00-0.1) % Eos # (Auto) (0-0.5) x10^3/uL Immature Gran # (Auto) (0.00-0.03) x10^3u/L Absolute Lymphs (auto) (1.0-4.6) x10^3/uL Absolute Monos (auto) (0.0-1.3) x10^3/uL Absolute Nucleated RBC (0.00-0.01) x10^3u/L Lymphocytes % (24.0-44.0) % Monocytes % (0.0-12.0) % Eosinophils % (0.00-5.0) % Basophils % (0.0-0.4) % Absolute Granulocytes (1.4-6.9) x10^3/uL Basophils # (0-0.4) x10^3/uL Sodium 137 (137-145) mmol/L Potassium 3.9 (3.5-5.1) mmol/L Chloride 106 (98-107) mmol/L Carbon Dioxide 29 (22-30) mmol/L Anion Gap 5.9 (5-15) MEQ/L BUN 13 (7-17) mg/dL Creatinine 0.85 (0.52-1.04) mg/dL Estimated GFR > 60.0 ML/MIN Glucose 116 H (74-106) mg/dL Calcium 9.9 (8.4-10.2) mg/dL Total Bilirubin 0.70 (0.2-1.3) mg/dL AST 20 (14-36) U/L ALT 15 (0-35) U/L Alkaline Phosphatase 70 (38-126) U/L Troponin I (0.000-0.034) ng/mL Serum Total Protein 5.8 L (6.3-8.2) g/dL Albumin 3.4 L (3.5-5.0) g/dL Microbiology 07/11/22 10:37 Blood Culture - Preliminary Blood NO GROWTH TO DATE 07/11/22 09:49 Blood Culture - Preliminary Blood NO GROWTH TO DATE 07/11/22 09:12 Urine Culture - Preliminary Clean Catch Midstream <10K NORMAL SKIN KENNETH PROBABLE SKIN CONTAMINANT - Radiology Impressions Radiology Exams & Impressions: Radiology Procedures Category Date Time Status CHEST 1 VIEW (PORTABLE) Stat Exams 07/11/22 10:22 Completed HEAD WITHOUT CONTRAST [CT] Stat Exams 07/11/22 10:20 Completed Assessment/Plan (1) LUE numbness Current Visit: Yes Status: Acute Code(s): R20.0 - ANESTHESIA OF SKIN (2) Stroke Current Visit: Yes Status: Suspected Assessment & Plan: per Neurologist mild nondisablking stroke Code(s): I63.9 - CEREBRAL INFARCTION, UNSPECIFIED (3) UTI (urinary tract infection) Current Visit: Yes Status: Acute Assessment & Plan: recurrent ,see cult Code(s): N39.0 - URINARY TRACT INFECTION, SITE NOT SPECIFIED (4) Esophageal abnormality Current Visit: Yes Status: Chronic Assessment & Plan: on soft diet and has to crush pills tomorrow Code(s): K22.9 - DISEASE OF ESOPHAGUS, UNSPECIFIED (5) Uncontrolled hypertension Current Visit: Yes Status: Resolved Assessment & Plan: monitor Code(s): I10 - ESSENTIAL (PRIMARY) HYPERTENSION (6) Murmur, cardiac Current Visit: Yes Status: Chronic Code(s): R01.1 - CARDIAC MURMUR, UNSPECIFIED (7) Pacemaker Current Visit: Yes Status: Chronic Code(s): Z95.0 - PRESENCE OF CARDIAC PACEMAKER
[2022-07-13] MEDS: TYLENOL 325 MG PO PRN (04:38)
[2022-07-13] MEDS ORDERED: xanAX 0.5 MG PO ONE (07:34)
[2022-07-13] MEDS: Lopressor 25MG Tab PO SCH (08:29)
[2022-07-13] MEDS: NORVASC 5 MG PO SCH (08:30)
[2022-07-13] MEDS: Zestril 10 MG PO SCH (08:31)
[2022-07-13] MEDS: Pepcid 20 MG PO SCH (08:31)
[2022-07-13] MEDS: PROTONIX 40 MG IV IV SCH (08:32)
--- NOTE | 2022-07-13 10:14 | XRAY ---
Indication: Left upper extremity numbness. Comparison: None 3 views cervical spine demonstrate normal alignment with osteopenia, minimal/mild C2-C5 degenerative changes, and mild bilateral carotid calcifications. No other bony, articular, or soft tissue abnormalities.
--- NOTE | 2022-07-13 11:22 | XRAY ---
Indication: Stroke. Two-dimensional sonogram and color Doppler imaging of the carotid arteries of the neck performed. Comparison: December 12, 2010 Examination of the right carotid circulation again demonstrates minimal heterogeneous plaquing at the level of the bulb. New moderate calcified plaquing in the proximal internal carotid artery. Remaining common carotid and external carotid artery widely patent. PSV of the CCA is 78 cm/s. PSV of the ICA is 63 cm/s. ICA/CC ratio is 0.8. Normal antegrade vertebral artery flow. Examination of the left carotid circulation demonstrates new moderate calcified plaquing at the level of the bulb extending into the origin internal carotid artery. Remaining common carotid and external carotid artery widely patent. PSV of the CCA is 78 cm/s. PSV of the ICA is 110 cm/s. ICA/CCA ratio is 1.4. Normal antegrade vertebral artery flow. Impression: Worsening calcified plaquing bilaterally. Velocity measurements and ratios are however negative for hemodynamically significant flow-limiting stenosis.
[2022-07-13 12:03] VITALS: BP 163/71; PULSE 60
[2022-07-13 12:48] LABS: Appearance CLEAR (CLEAR); Bilirubin NEGATIVE (NEGATIVE); Dipstick done @ ? MAIN LAB; Epithelial Cells RARE /HPF (FEW); Glucose NEGATIVE (NEGATIVE); Ketones NEGATIVE (NEGATIVE); Mucus SLIGHT /HPF (NEGATIVE); Nitrite NEGATIVE (NEGATIVE); Ph 5.5 (5-6); Protein,Urine Dip NEGATIVE (Negative); RBC NEGATIVE Ery/ul (0-5); Specific Gravity 1.025 (1.005-1.025); Urobilinogen 0.2 mg/dL (0-1); WBC 0-2 /HPF (0-5)
[2022-07-13 12:49] LABS: Urine Cultured Indicated? NO
[2022-07-16 22:21] VITALS: O2SAT 99
== END 2022-07-13 12:55 | disposition home or self-care (01) ==
LOC: ED 09:02 → MED SURG 14:51
PROVIDERS: ADMIT Family Medicine; ATTEND General Practice
DX: I63.9 Cerebral infarction, unspecified (principal); R20.0 Anesthesia of skin; N39.0 Urinary tract infection, site not specified; K22.9 Disease of esophagus, unspecified; I10 Essential (primary) hypertension; R01.1 Cardiac murmur, unspecified; J44.9 Chronic obstructive pulmonary disease, unspecified; R42 Dizziness and giddiness; Z95.0 Presence of cardiac pacemaker; Z79.899 Other long term (current) drug therapy; Z20.828 Contact with and (suspected) exposure to other viral communicable diseases
CPT/HCPCS: 0241U; 36000; 36415; 70450; 71045; 72040; 80053; 81015; 83735; 83880; 84484; 85025; 87040; 87086; 93005; 93268; 93880; 96374; 99285; G0378; J0360; A9270-GY